=== PATIENT | male | born 1965 | race Caucasian/White ===

== ENCOUNTER 2024-03-18 08:45 | Emergency (ER) | payer MEDICAID, OTHER ==
[~2024-03-18] VITALS: Ht 167.6 cm; Wt 108.4 kg
[2024-03-18] MEDS: ALBUTEROL SULF 2.5 MG/0.5ML(0.5%) NEB SOLN NEB ONE (10:07)
[2024-03-18] MEDS: IPRATROPIUM BROM 0.5 MG/2.5ML INH SOL NEB ONE (10:07)
[2024-03-18 10:22] VITALS: BP 120/78; PULSE 111; RESP 16; TEMP 99.2; O2SAT 94
[2024-03-18] MEDS: methylPREDNISolone SOD SUCC 125 MG/2 ML VL IM ONE (10:24)
[2024-03-18] MEDS: cefTRIAXone SOD 1,000 MG VL IM ONE (10:24)
[2024-03-18] MEDS ORDERED: PROM1SOL4 PO (11:40)
[2024-03-18] MEDS ORDERED: LEVO500T91 PO (11:40)
[2024-03-18] MEDS ORDERED: PRED20TA2 PO (11:40)
[2024-03-18 11:51] VITALS: PULSE 98; RESP 16; O2SAT 100
== END 2024-03-18 12:32 | disposition home or self-care (01) ==
LOC: ER 08:45
DX: J20.9 Acute bronchitis, unspecified (principal); J44.0 Chronic obstructive pulmonary disease with (acute) lower respiratory infection; E66.01 Morbid (severe) obesity due to excess calories; Z68.38 Body mass index [BMI] 38.0-38.9, adult
CPT/HCPCS: 71045; 94640; 96372; 99284; J0696; J2919; J7644

== ENCOUNTER 2024-08-18 09:40 | Emergency (ER) | payer MEDICAID ==
[~2024-08-18] VITALS: Ht 167.6 cm; Wt 106.7 kg
[~2024-08-18 09:40] MED LIST: LEVO500T91 PO; PRED20TA2 PO; PROM1SOL4 PO
[2024-08-18 10:38] VITALS: BP 104/61; PULSE 105; RESP 15; TEMP 98.4; O2SAT 94
--- NOTE | 2024-08-18 10:44 | ED.PDOC ---
Musculoskeletal HPI Comments A 59Y M WITH PMHX DM, COPD, CTS, AND ARTHRITIS PRESENTS TO ED FOR CHIEF COMPLAINT RT 4TH FINGER PAIN SINCE LAST NIGHT. PT STATES HE WAS PUSHING HIS PANTS DOWNWARDS WHEN HE HURT HIS HAND AND THE 4TH FINGER BECAME RED AND SWOLLEN. PT DENIES CHEST PAIN AND SOB. NO OTHER SYMPTOMS REPORTED. PATIENT IS ALERT, ORIENTED X 4, AND HAS STEADY GAIT. Chief Complaint: Upper Extremity Time Seen by MD: 10:36 Reviewed Notes: Nurses Notes, Medications, Allergies Allergies: Coded Allergies: NO KNOWN ALLERGIES (Unverified , 03/18/24) Home Meds Active Scripts Acetaminophen (Tylenol 8 Hour Arthritis) 650 Mg Tab, 650 MG PO TID, #30 TAB Prov:HILARY MENDES 08/18/24 Promethazine-Dm (Promethazine Dm 6.25-15 mg/5Ml) 1 Ochoa Ochoa, 10 OCHOA PO TID, #180 ML Prov:HILARY MENDES 03/18/24 Prednisone (Prednisone) 20 Mg Tab, 60 MG PO DAILY for 5 Days, #15 TAB Prov:HILARY MENDES 03/18/24 Levofloxacin Hemihydrate (LEVAQUIN 500 MG) 500 Mg Tab, 1 TAB PO DAILY, #10 TAB Prov:HILARY MENDES 03/18/24 Information Source: Patient Mode of Arrival: Ambulatory Location: Right Extremity Location: Finger 4 Timing: Days Severity: Mild Able to Move Extremity: Yes Bear Weight: Fully Pain: Mild, Moderate Mechanism: Hyperextension, Other Circumstances: Other Onset of Symptoms: After Trauma Symptoms: Swelling, Pain, Erythema DVT Risk Factors: NONE Last Tetanus: UTD History of: Arthritis Associated signs and symptoms: Other (FINGER PAIN) Past Medical History PAST MEDICAL HISTORY: Arthritis, COPD, DM Past Medical History (Other): CTS Surgical History: Denies all surgeries Family History Family History: Reviewed,noncontributory to illness Social History Smoker: Non-Smoker Alcohol: Denies ETOH Use Drugs: Denies Drug Use Lives In: Home Constitutional: denies: chills, diaphoresis, fatigue, fever, malaise, sweats, weakness, others EENTM: denies: blurred vision, double vision, ear bleeding, ear discharge, ear drainage, ear pain, ear ringing, eye pain, eye redness, hearing loss, mouth pa in, mouth swelling, nasal discharge, nose bleeding, nose congestion, nose pain, photophobia, tearing, throat pain, throat swelling, voice changes, others Respiratory: denies: cough, hemoptysis, orthopnea, SOB at rest, shortness of breath, SOB with excertion, stridor, wheezing, others Cardiovascular: denies: chest pain, dizzy spells, diaphoresis, Dyspnea on exertion, edema, irregular heart beat, left arm pain, lightheadedness, palpitations, PND, syncope, others Gastrointestinal: denies: abdomen distended, abdominal pain, blood streaked bowels, constipated, diarrhea, dysphagia, difficulty swallowing, hematemesis, melena, nausea, poor appetite, poor fluid intake, rectal bleeding, rectal pain, vomiting, others Genitourinary: denies: burning, dysuria, flank pain, frequency, hematuria, incontinence, penile discharge, penile sore, pain, testicle pain, testicle swelling, urgency, others Neurological: denies: dizziness, fainting, headache, left sided numbness, left sided weakness, numbness, paresthesia, pre-existing deficit, right sided numbness, right sided weakness, seizure, speech problems, tingling, tremors, weakness, others Musculoskeletal: reports: joint pain, joint swelling, others (RT 4TH FINGER REDNESS/SWELLING/PAIN); denies: back pain, gout, muscle pain, muscle stiffness, neck pain Integumetry: denies: bruises, change in color, change in hair/nails, dryness, laceration, lesions, lumps, rash, wounds, others Allergic/Immunocompromised: denies: Difficulty Healing, Frequent Infections, Hives, Itching, others Hematologic/Lymphatic: denies: anemia, blood clots, easy bleeding, easy bruising, swollen glands, others Endocrine: denies: excessive hunger, excessive sweating, excessive thirst, excessive urination, flushing, intolerance to cold, intolerance to heat, unexplained weight gain, unexplained weight loss, others Psychiatric: denies: anxiety, bipolar disorder, depression, hopeless, panic disorder, schizophrenia, sleepless, suicidal, others All Other Systems: Reviewed and Negative Physical Exam General Appearance: No Apparent Distress, Normal HEENT: Normal ENT Inspection, PERRL/EOMI, Pharynx Normal, TMs Normal Neck: Full Range of Motion, Non-Tender, Normal, Normal Inspection Respiratory: Chest Non-Tender, Lungs Clear, No Accessory Muscle Use, No Respiratory Distress, Normal Breath Sounds Cardiovascular: No Edema, No JVD, No Murmur, No Gallop, Normal Peripheral Pulses, Regular Rate/Rhythm Breast Exam: Deferred Gastrointestinal: No Organomegaly, Non Tender, No Pulsatile Mass, Normal Bowel Sounds, Soft Genitalia: Deferred Pelvic: Deferred Rectal: Deferred Extremities: No calf tenderness, Normal capillary refill, Normal range of motion, No pedal edema, Tender (AND MILD SWELLING ON RIGHT 4TH FINGER, NO BONY TENDERNESS AND DEFORMITY. ) Musculoskeletal : Apperance: Normal Neurologic: Alert, lift team technician II-XII nml as Tested, No Motor Deficits, Normal Affect, Normal Mood, No Sensory Deficits Cerebellar Function: Normal Reflexes: Normal Skin: Dry, Normal Color, Warm Peripheral Pulses: 2+ carotid (R), 2+ carotid (L) Lymphatic: No Adenopathy Was a procedure done? Was a procedure done?: No Differential Diagnosis EXT Differential Diagnosis: Fracture, Sprain, Dislocation, Contusion, Strain, Arthritis, Bursitis X-Ray, Labs, Meds, VS Vital Signs Date Time Temp Pulse Resp B/P (MAP) Pulse Ox O2 Delivery O2 Flow Rate FiO2 08/18/24 10:38 105 15 94 Room Air 08/18/24 10:38 98.4 105 15 104/61 (75) 94 98.4 08/18/24 09:48 98.4 105 15 104/61 (75) [address] [place] [address] Ph: [phone] DIAGNOSTIC IMAGING Diagnostic Imaging Report : [id number] Signed PATIENT: APRIL CHAPARRO DACCT: [id number] UNIT: [id number] : 1965 LOC: ER ROOM / BED: / AGE / SEX: 59 / M ADM STATUS: REG ER SERVICE 1001 ORDERING PHYSICIAN: HILARY MENDES PROCEDURE(s): RHAN - R HAND 3 VIEW XRAY REASON: INJURY ORDER NUMBER(s): [id number], ACCESSION NUMBER(s): [id number] CLINICAL INDICATION: INJURY TECHNIQUE: XY R HAND 3 VIEW XRAY Comparison: None FINDINGS/IMPRESSION: There is no evidence of acute fracture or dislocation. The visualized joint space is well maintained. The alignment is anatomical. There is no radiopaque foreign body. ATED BY: NATE BERNSTEIN MD DICTATED DATE/TIME: 08/18/24 105 SIGNED BY: NATE BERNSTEIN MD SIGNED DATE/TIME: 08/18/24 105 CC: X-Ray, Labs, Meds, VS Comment COURSE: EXTERNAL MEDICAL RECORDS REVIEWED: [NONE] INDEPENDENT HISTORIANS: [NONE] SOCIAL DETERMINANTS OF HEALTH: [NONE] LABS ORDERED: NONE REVIEWED AND INTERPRETED RESULTS: NONE IMAGING ORDERED: RT HAND X-RAY NORMAL X RAY RESULT: INTERPRETED BY ME. NO ACUTE FINDINGS. NO FRACTURES OR DISLOCATION. TREATMENTS ORDERED: NONE PROCEDURES PERFORMED: NONE CRITICAL CARE TIME: NONE I HAVE DISCUSSED THE PATIENT WITH THE ATTENDING PHYSICIAN DR. TWILA MEZA AND SHE AGREES WITH THE PATIENT'S PLAN OF CARE AND DISPOSITION. GIVEN THE HISTORY AND PRESENT ILLNESS OF THE PATIENT, AFTER REVIEWING LABS, IMAGING, AND COURSE OF TREATMENT ADMINISTERED DURING THEIR ED VISIT, THERE IS LOW SUSPICION FOR RED FLAG FINDINGS. BASED ON HISTORY OF PRESENT ILLNESS, AND PHYSICAL EXAM, PATIENT WILL BE DISCHARGED HOME. DISCUSSED PLAN FOR DISCHARGE HOME WITH RX. MEDICATION WARNINGS GIVEN. SHARED DECISION MAKING: DISCUSSED WITH PATIENT THAT THEIR WORKUP WAS NORMAL. PATIENT INSTRUCTED TO FOLLOW UP WITH PRIMARY CARE PROVIDER IN 1-2 DAYS FOR RE- EVALUATION OF SYMPTOMS. PATIENT VERBALIZES UNDERSTANDING TO RETURN TO ED FOR NEW OR WORSENING SYMPTOMS OR IF FOLLOW UP WITH PCP CANNOT BE OBTAINED. PATIENT FEELS COMFORTABLE GOING HOME AT THIS TIME. ALL QUESTIONS ADDRESSED AT TIME OF DISCHARGE. Time of 1ST Reevaluation: 11:10 Reevaluation 1ST: Improved Patient Education/Counseling: Diagnosis, Treatment, Need For Follow Up Family Education/Counseling: Diagnosis, Treatment, Need For Follow Up, No Family Present Medical Screening: No EMC Exist At This Time Departure 1 Departure Time of Disposition: 11:10 Impression: Primary Impression: Sprain of ring finger Qualified Codes: S63.634A - Sprain of interphalangeal joint of right ring finger, initial encounter Disposition: HOME / SELF CARE / HOMELESS Condition: Stable Additional Instructions: INSTRUCTIONS: FOLLOW-UP WITH PCP IN 1 TO 2 DAYS. TAKE MEDICATIONS PRESCRIBED. RETURN TO ED FOR ANY NEW OR WORSENING SYMPTOMS. e-Prescriptions Acetaminophen (Tylenol 8 Hour Arthritis) 650 Mg Tab 650 MG PO TID, #30 TAB Prov: HILARY MENDES 08/18/24 Discharged With: Self Critical Care Note Critical Care Time?: No Stability Stability form required: No Heart Score Heart Score: Heart Score Response (Comments) Value History N/A 0 EKG N/A 0 Age N/A 0 Risk Factors N/A 0 Troponin N/A 0 Total 0 I personally scribed for HILARY MENDES ([email or web address]) on 08/18/24 at 10:44. Electronically submitted by Danica Kelly ([employer]). I personally scribed for HILARY MENDES ([email or web address]) on 08/18/24 at 10:56. El ectronically submitted by Danica Kelly ([employer]). I personally scribed for HILARY MENDES ([email or web address]) on 08/18/24 at 11:00. Electronically submitted by Danica Kelly ([employer]). HILARY MENDES Aug 18, 2024 10:44
--- NOTE | 2024-08-18 10:53 | DVH ---
CLINICAL INDICATION: INJURY TECHNIQUE: XY R HAND 3 VIEW XRAY Comparison: None FINDINGS/IMPRESSION: There is no evidence of acute fracture or dislocation. The visualized joint space is well maintained. The alignment is anatomical. There is no radiopaque foreign body.
[2024-08-18] MEDS ORDERED: ACET-1080 PO (11:01)
== END 2024-08-18 11:05 | disposition home or self-care (01) ==
LOC: ER 09:40
DX: S63.694A Other sprain of right ring finger, initial encounter (principal); J44.9 Chronic obstructive pulmonary disease, unspecified; E11.9 Type 2 diabetes mellitus without complications; Z79.899 Other long term (current) drug therapy; X58.XXXA Exposure to other specified factors, initial encounter; Y93.89 Activity, other specified; Y92.89 Other specified places as the place of occurrence of the external cause; Y99.8 Other external cause status
CPT/HCPCS: 29130; 73130

== ENCOUNTER 2024-08-20 16:00 | Emergency (ER) | payer MEDICAID ==
[~2024-08-20] VITALS: Ht 167.6 cm; Wt 106.7 kg
[~2024-08-20 16:00] MED LIST changes: +ACET-1080 PO
[2024-08-20 17:14] VITALS: BP 99/70; PULSE 100; RESP 18; TEMP 97.1; O2SAT 96
[2024-08-20] MEDS ORDERED: IBUP-1454 PO (17:28)
[2024-08-20] MEDS: KETOROLAC TROMETH 30 MG/ML 1ML VIAL IM ONE (17:29)
--- NOTE | 2024-08-20 17:29 | ED.PDOC ---
Musculoskeletal HPI Comments 59-year-old male with past medical history pertinent for COPD, DM, presents to ED for right shoulder pain x2 weeks, worsening today. Patient denies any recent trauma or injury. He states that he does have a history of arthritis to his right shoulder and states that the pain is worse today. He describes it as a sharp sensation and rates it as 8/10 in severity. The pain is localized to his right shoulder and does not radiate. He denies any numbness, tingling, fever, nausea, vomiting, neck pain. Chief Complaint: Upper Extremity Time Seen by MD: 16:58 Primary Care Provider: SAMRA Reviewed Notes: Nurses Notes, Medications, Allergies Allergies: Coded Allergies: NO KNOWN ALLERGIES (Unverified , 03/18/24) Home Meds Active Scripts Acetaminophen (Tylenol 8 Hour Arthritis) 650 Mg Tab, 650 MG PO TID, #30 TAB Prov:HILARY MENDES 08/18/24 Promethazine-Dm (Promethazine Dm 6.25-15 mg/5Ml) 1 Ochoa Ochoa, 10 OCHOA PO TID, #180 ML Prov:HILARY MENDES 03/18/24 Prednisone (Prednisone) 20 Mg Tab, 60 MG PO DAILY for 5 Days, #15 TAB Prov:HILARY MENDES 03/18/24 Levofloxacin Hemihydrate (LEVAQUIN 500 MG) 500 Mg Tab, 1 TAB PO DAILY, #10 TAB Prov:HILARY MENDES 03/18/24 Mode of Arrival: Ambulatory Past Medical History PAST MEDICAL HISTORY: Arthritis, COPD, DM Surgical History: Denies all surgeries Family History Family History: Reviewed,noncontributory to illness Social History Smoker: Non-Smoker Alcohol: Denies ETOH Use Drugs: Denies Drug Use Lives In: Home Constitutional: denies: chills, diaphoresis, fatigue, fever, malaise, sweats, weakness, others EENTM: denies: blurred vision, double vision, ear bleeding, ear discharge, ear drainage, ear pain, ear ringing, eye pain, eye redness, hearing loss, mouth pain, mouth swelling, nasal discharge, nose bleeding, nose congestion, nose pain, photophobia, tearing, throat pain, throat swelling, voice changes, others Respiratory: denies: cough, hemoptysis, orthopnea, SOB at rest, shortness of breath, SOB with excertion, stridor, wheezing, others Cardiovascular: denies: chest pain, dizzy spells, diaphoresis, Dyspnea on exertion, edema, irregular heart beat, left arm pain, lightheadedness, palpitations, PND, syncope, others Gastrointestinal: denies: abdomen distended, abdominal pain, blood streaked bowels, constipated, diarrhea, dysphagia, difficulty swallowing, hematemesis, melena, nausea, poor appetite, poor fluid intake, rectal bleeding, rectal pain, vomiting, others Genitourinary: denies: burning, dysuria, flank pain, frequency, hematuria, incontinence, penile discharge, penile sore, pain, testicle pain, testicle swelling, urgency, others Neurological: denies: dizziness, fainting, headache, left sided numbness, left sided weakness, numbness, paresthesia, pre-existing deficit, right sided numbness, right sided weakness, seizure, speech problems, tingling, tremors, weakness, others Musculoskeletal: reports: joint pain; denies: back pain, gout, joint swelling, muscle pain, muscle stiffness, neck pain, others Integumetry: denies: bruises, change in color, change in hair/nails, dryness, laceration, lesions, lumps, rash, wounds, others Allergic/Immunocompromised: denies: Difficulty Healing, Frequent Infections, Hives, Itching, others Hematologic/Lymphatic: denies: anemia, blood clots, easy bleeding, easy bruising, swollen glands, others Endocrine: denies: excessive hunger, excessive sweating, excessive thirst, excessive urination, flushing, intolerance to cold, intolerance to heat, u nexplained weight gain, unexplained weight loss, others Psychiatric: denies: anxiety, bipolar disorder, depression, hopeless, panic disorder, schizophrenia, sleepless, suicidal, others All Other Systems: Reviewed and Negative Physical Exam General Appearance: No Apparent Distress, Normal HEENT: Normal ENT Inspection, Pharynx Normal, TMs Normal Neck: Full Range of Motion, Non-Tender, Normal, Normal Inspection Respiratory: Chest Non-Tender, Lungs Clear, No Accessory Muscle Use, No Respiratory Distress, Normal Breath Sounds Cardiovascular: No Edema, No JVD, No Murmur, No Gallop, Normal Peripheral P ulses, Regular Rate/Rhythm Breast Exam: Deferred Gastrointestinal: No Organomegaly, Non Tender, No Pulsatile Mass, Normal Bowel Sounds, Soft Genitalia: Deferred Pelvic: Deferred Rectal: Deferred Extremities: No calf tenderness, Normal capillary refill, Normal inspection, Normal range of motion, Non-tender, No pedal edema Musculoskeletal : Location: Right Extremity Location: Shoulder (No tenderness to palpation to the right shoulder. No obvious deformity or swelling noted. Normal passive range of motion. Normal sensation to the right upper extremity. Normal range of motion of the fingers. 3+ radial pulse.) Apperance: Normal Neurologic: Alert, administrative services assistant II-XII nml as Tested, No Motor Deficits, Normal Affect, Normal Mood, No Sensory Deficits Cerebellar Function: Normal Reflexes: Normal Skin: Dry, Normal Color, Warm Lymphatic: No Adenopathy Was a procedure done? Was a procedure done?: No Differential Diagnosis EXT Differential Diagnosis: Fracture, Sprain, Dislocation, Strain, Arthritis X-Ray, Labs, Meds, VS Vital Signs Date Time Temp Pulse Resp B/P (MAP) Pulse Ox O2 Delivery O2 Flow Rate FiO2 08/20/24 17:14 100 18 96 Room Air 08/20/24 17:14 97.1 100 18 99/70 (80) 96 97.1 08/20/24 16:33 97.1 100 18 99/70 (80) 96 X-Ray, Labs, Meds, VS Comment MDM: Patient with history as above presented with right shoulder pain. History obtained from patient. Patient was nontoxic, stable, afebrile, ambulatory, no acute distress. Exam as above. Reviewed external records. All findings were discussed with the patient. Differential diagnosis considered. Overall presentation is consistent with musculoskeletal shoulder pain. Low suspicion for fracture, dislocation, neurovascular injury, septic joint. Patient was treated with Toradol with improvement in symptoms. Patient was reevaluated and vital signs were reviewed. Consideration was given for admission, but the patient was stable for outpatient management. Prescribed ibuprofen for outpatient treatment. Disposition: Discussed the need to follow up diagnostics, including incidental findings. Discharged the patient with instructions to obtain outpatient follow up in 1-2 days of today's symptoms and findings, with strict return precautions if patient develops new or worsening symptoms. This medical document was created using the [employer] system. Although this document has been carefully reviewed, there may still be some phonetic and typographical errors, which are due to imperfections of the software program, and do not reflect any compromise in the patient's medical care. Time of 1ST Reevaluation: 17:28 Reevaluation 1ST: Improved Patient Education/Counseling: Diagnosis, Treatment, Prognosis, Need For Follow Up Family Education/Counseling: No Family Present Departure 1 Departure Time of Disposition: 17:28 Impression: Primary Impression: Right shoulder pain Qualified Codes: M25.511 - Pain in right shoulder Disposition: 01 HOME / SELF CARE / HOMELESS Condition: Fair e-Prescriptions Ibuprofen (Ibuprofen) 600 Mg Tab 1 TAB PO TID, #30 TAB Prov: ZAINAB CARNES 08/20/24 Critical Care Note Critical Care Time?: No Stability Stability form required: No Heart Score Heart Score: Heart Score Response (Comments) Value History N/A 0 EKG N/A 0 Age N/A 0 Risk Factors N/A 0 Troponin N/A 0 Total 0 ZAINAB CARNES Aug 20, 2024 17:29
== END 2024-08-20 17:37 | disposition home or self-care (01) ==
LOC: ER 16:00
DX: M25.511 Pain in right shoulder (principal); J44.9 Chronic obstructive pulmonary disease, unspecified; E11.9 Type 2 diabetes mellitus without complications; Z79.899 Other long term (current) drug therapy
CPT/HCPCS: 96372; 99283; J1885

== ENCOUNTER 2024-08-22 15:25 | Emergency (ER) | payer MEDICAID ==
[~2024-08-22] VITALS: Ht 167.6 cm; Wt 107.3 kg
[~2024-08-22 15:25] MED LIST changes: +IBUP-1454 PO
--- NOTE | 2024-08-22 16:11 | DVH ---
CLINICAL INDICATION: [place] pain TECHNIQUE: 3 radiographic views of the right shoulder were obtained. Comparison: Chest radiograph 03/18/2024 FINDINGS/IMPRESSION: There is questionable old fracture deformity of the right mid to distal clavicle. Otherwise, no is n o evidence of acute fracture or dislocation. Calcific tendinitis is noted adjacent to the humeral head. The visualized joint space is well maintained. Moderate degenerative changes of the right AC joint. The alignment is anatomical. Redemonstration of opacification of right lateral hemithorax which may represent pleural lipomatosis, or pleural thickening with pleural effusion not excluded.
--- NOTE | 2024-08-22 16:17 | ED.PDOC ---
Musculoskeletal HPI Comments 59-year-old male with past medical history pertinent for DM, arthritis, COPD, presents to ED for right shoulder pain x1 hour. Patient reports that he has been having right shoulder pain the last few days, however in the last hour it got worse. He was seen here two days ago for similar symptoms. Patient states that his symptoms are the same and have not changed. He states that the pain is rated as 8/10 in severity. He denies any numbness or tingling. No recent injuries or trauma. Patient also denies any fever, chills, nausea, vomiting. No alleviating or aggravating factors. Patient took ibuprofen prior to arrival without relief of symptoms. Chief Complaint: Upper Extremity Time Seen by MD: 15:33 Primary Care Provider: SAMRA Reviewed Notes: Nurses Notes, Medications, Allergies Allergies: Coded Allergies: NO KNOWN ALLERGIES (Unverified , 03/18/24) Home Meds Active Scripts Ibuprofen (Ibuprofen) 600 Mg Tab, 1 TAB PO TID, #30 TAB Prov:ZAINAB CARNES 08/20/24 Acetaminophen (Tylenol 8 Hour Arthritis) 650 Mg Tab, 650 MG PO TID, #30 TAB Prov:HILARY MENDES 08/18/24 Promethazine-Dm (Promethazine Dm 6.25-15 mg/5Ml) 1 Ochoa Ochoa, 10 OCHOA PO TID, #180 ML Prov:HILARY MENDES 03/18/24 Prednisone (Prednisone) 20 Mg Tab, 60 MG PO DAILY for 5 Days, #15 TAB Prov:HLIARY MENDES 03/18/24 Levofloxacin Hemihydrate (LEVAQUIN 500 MG) 500 Mg Tab, 1 TAB PO DAILY, #10 TAB Prov:HILARY MENDES 03/18/24 Past Medical History PAST MEDICAL HISTORY: Arthritis, COPD, DM Surgical History: Denies all surgeries Family History Family History: Reviewed,noncontributory to illness Social History Smoker: Non-Smoker Alcohol: Denies ETOH Use Drugs: Denies Drug Use Lives In: Home Constitutional: denies: chills, diaphoresis, fatigue, fever, malaise, sweats, weakness, others EENTM: denies: blurred vision, double vision, ear bleeding, ear discharge, ear drainage, ear pain, ear ringing, eye pain, eye redness, hearing loss, mouth pain, mouth swelling, nasal discharge, nose bleeding, nose congestion, nose pain, photophobia, tearing, throat pain, throat swelling, voice changes, others Respiratory: denies: cough, hemoptysis, orthopnea, SOB at rest, shortness of breath, SOB with excertion, stridor, wheezing, others Cardiovascular: denies: chest pain, dizzy spells, diaphoresis, Dyspnea on exertion, edema, irregular heart beat, left arm pain, lightheadedness, palpitations, PND, syncope, others Gastrointestinal: denies: abdomen distended, abdominal pain, blood streaked bowels, constipated, diarrhea, dysphagia, difficulty swallowing, hematemesis, melena, nausea, poor appetite, poor fluid intake, rectal bleeding, rectal pain, vomiting, others Genitourinary: denies: burning, dysuria, flank pain, frequency, hematuria, incontinence, penile discharge, penile sore, pain, testicle pain, testicle swelling, urgency, others Neurological: denies: dizziness, fainting, headache, left sided numbness, left sided weakness, numbness, paresthesia, pre-existing deficit, right sided numbness, right sided weakness, seizure, speech problems, tingling, tremors, weakness, others Musculoskeletal: reports: joint pain; denies: back pain, gout, joint swelling, muscle pain, muscle stiffness, neck pain, others Integumetry: denies: bruises, change in color, change in hair/nails, dryness, laceration, lesions, lumps, rash, wounds, others Allergic/Immunocompromised: denies: Difficulty Healing, Frequent Infections, Hives, Itching, others Hematologic/Lymphatic: denies: anemia, blood clots, easy bleeding, easy bruising, swollen glands, others Endocrine: denies: excessive hunger, excessive sweating, excessive thirst, excessive urination, flushing, intolerance to cold, intolerance to heat, unexplained weight gain, unexplained weight loss, others Psychiatric: denies: anxiety, bipolar disorder, depression, hopeless, panic disorder, schizophrenia, sleepless, suicidal, others All Other Systems: Reviewed and Negative Physical Exam General Appearance: No Apparent Distress, Normal HEENT: Normal ENT Inspection, Pharynx Normal, TMs Normal Neck: Full Range of Motion, Non-Tender, Normal, Normal Inspection Respiratory: Chest Non-Tender, Lungs Clear, No Accessory Muscle Use, No Respiratory Distress, Normal Breath Sounds Cardiovascular: No Edema, No JVD, No Murmur, No Gallop, Normal Peripheral Pulses, Regular Rate/Rhythm Breast Exam: Deferred Gastrointestinal: No Organomegaly, Non Tender, No Pulsatile Mass, Normal Bowel Sounds, Soft Genitalia: Deferred Pelvic: Deferred Rectal: Deferred Extremities: No calf tenderness, Normal capillary refill, Normal inspection, Normal range of motion, Non-tender, No pedal edema Musculoskeletal : Location: Right Extremity Location: Shoulder (No tenderness to palpation to the right shoulder. Full passive range of motion of the right shoulder. No obvious deformity or swelling noted.) Apperance: Normal Neurologic: Alert, hand sole sewer II-XII nml as Tested, No Motor Deficits, Normal Affect, Normal Mood, No Sensory Deficits Cerebellar Function: Normal Reflexes: Normal Skin: Dry, Normal Color, Warm Lymphatic: No Adenopathy Was a procedure done? Was a procedure done?: No Differential Diagnosis EXT Differential Diagnosis: Fracture, Sprain, Dislocation, Contusion, Strain, Neurovascular injury, Arthritis X-Ray, Labs, Meds, VS Comment Right Shoulder XR FINDINGS/IMPRESSION: There is questionable old fracture deformity of the right mid to distal clavicle. Otherwise, no is no evidence of acute fracture or dislocation. Calcific tendinitis is noted adjacent to the humeral head. The visualized joint space is well maintained. Moderate degenerative changes of the right AC joint. The alignment is anatomical. Redemonstration of opacification of right lateral hemithorax which may represent pleural lipomatosis, or pleural thickening with pleural effusion not excluded. MDM: Patient with history as above presented with right shoulder pain. History obtained from patient. Patient was nontoxic, stable, afebrile, ambulatory, no acute distress. Exam as above. Independently reviewed imaging. Right shoulder x-ray showed calcific tendinitis. Reviewed external records. All findings were discussed with the patient. Differential diagnosis considered. Overall presentation is consistent with dennis cific tendinitis. Low suspicion for acute fracture, dislocation, septic joint. Ordered [place] for the patient in the ED. Patient was reevaluated and vital signs were reviewed. Consideration was given for admission, but the patient was stable for outpatient management. Disposition: Discussed the need to follow up diagnostics, including incidental findings. Discharged the patient with instructions to obtain outpatient follow up in 1-2 days of today's symptoms and findings, with strict return precautions if patient develops new or worsening symptoms. This medical document was created using the [employer] dictation system. Although this document has been carefully reviewed, there may still be some phonetic and typographical errors, which are due to imperfections of the software program, and do not reflect any compromise in the patient's medical care. Time of 1ST Reevaluation: 16:15 Reevaluation 1ST: Improved Patient Education/Counseling: Diagnosis, Treatment, Prognosis, Need For Follow Up Family Education/Counseling: No Family Present Departure 1 Departure Time of Disposition: 16:17 Impression: Primary Impression: Calcific tendinitis Disposition: 01 HOME / SELF CARE / HOMELESS Condition: Fair Critical Care Note Critical Care Time?: No Stability Stability form required: No Heart Score Heart Score: Heart Score Response (Comments) Value History N/A 0 EKG N/A 0 Age N/A 0 Risk Factors N/A 0 Troponin N/A 0 Total 0 ZAINAB CARNES [facility] Aug 22, 2024 16:17
[2024-08-22] MEDS: HYDROcodone-ACET 5/325MG TAB PO ONE (17:14)
[2024-08-22 17:24] VITALS: RESP 17; O2SAT 97
[2024-08-22 17:25] VITALS: BP 113/69; PULSE 103; RESP 17; TEMP 98.3; O2SAT 98
== END 2024-08-22 17:27 | disposition home or self-care (01) ==
LOC: ER 15:25
DX: M75.31 Calcific tendinitis of right shoulder (principal); J44.9 Chronic obstructive pulmonary disease, unspecified; E11.9 Type 2 diabetes mellitus without complications; M19.90 Unspecified osteoarthritis, unspecified site; Z79.1 Long term (current) use of non-steroidal anti-inflammatories (NSAID); Z79.52 Long term (current) use of systemic steroids
CPT/HCPCS: 73030

== ENCOUNTER 2024-08-26 14:51 | Emergency (ER) | payer MEDICAID ==
[~2024-08-26] VITALS: Ht 167.6 cm; Wt 105.5 kg
[2024-08-26 16:35] VITALS: BP 152/72; PULSE 127; RESP 18; TEMP 98.3; O2SAT 98
--- NOTE | 2024-08-26 16:49 | ED.PDOC ---
Musculoskeletal HPI Comments A 59 YEAR OLD MALE PRESENTS TO THE ED WITH COMPLAINT OF LEFT KNEE PAIN. PATIENT STATES HE HAS BEEN EXPERIENCING LEFT KNEE PAIN AND SWELLING THAT STARTED TODAY AFTER KNEELING DOWN WHILE HE WAS CLEANING HIS DOG'S KENNEL.. PATIENT REPORTS HIS PAIN IS WORSE WITH MOVEMENT. PATIENT NOTES HE IS ALSO EXPERIENCING NAUSEA AT THIS TIME AND NOTES HE DID NOT TAKE HIS DIABETES MEDICATION TODAY. PATIENT DENIES FEVER, CHILLS, SHORTNESS OF BREATH, CHEST PAIN, ABDOMINAL PAIN, VOMITING, HEADACHE, OR OTHER COMPLAINTS. NO OTHER SYMPTOMS OR MODIFYING FACTORS AT THIS TIME. PATIENT IS ALERT, ORIENTED X 4, AND HAS STEADY GAIT. Chief Complaint: Lower Extremity Time Seen by MD: 15:32 Primary Care Provider: BALTA Reviewed Notes: Nurses Notes, Medications, Allergies Allergies: Coded Allergies: NO KNOWN ALLERGIES (Unverified , 03/18/24) Home Meds Active Scripts Naproxen (Naproxen) 500 Mg Tab, 500 MG PO BID, #30 TAB Prov:HILARY MENDES 08/26/24 Ibuprofen (Ibuprofen) 600 Mg Tab, 1 TAB PO TID, #30 TAB Prov:ZAINAB CARNES [facility] 08/20/24 Acetaminophen (Tylenol 8 Hour Arthritis) 650 Mg Tab, 650 MG PO TID, #30 TAB Prov:HILARY MENDES 08/18/24 Promethazine-Dm (Promethazine Dm 6.25-15 mg/5Ml) 1 Ochoa Ochoa, 10 OCHOA PO TID, #180 ML Prov:HILAYR MENDES 03/18/24 Prednisone (Prednisone) 20 Mg Tab, 60 MG PO DAILY for 5 Days, #15 TAB Prov:HILARY MENDES 03/18/24 Levofloxacin Hemihydrate (LEVAQUIN 500 MG) 500 Mg Tab, 1 TAB PO DAILY, #10 TAB Prov:HILARY MENDES 03/18/24 Information Source: Patient Mode of Arrival: Ambulatory Location: Left Extremity Location: Knee Timing: Hours Prehospital treatment: None Severity: Moderate Able to Move Extremity: Yes Bear Weight: Fully Pain: Moderate Mechanism: No Trauma, Spontaneous Circumstances: Spontaneous Onset of Symptoms: Spontaneous Symptoms: Swelling, Pain DVT Risk Factors: NONE Last Tetanus: Unknown Associated signs and symptoms: Knee pain Past Medical History PAST MEDICAL HISTORY: Arthritis, COPD, DM Surgical History: Denies all surgeries Family History Family History: Reviewed,noncontributory to illness Social History Smoker: Non-Smoker Alcohol: Denies ETOH Use Drugs: Denies Drug Use Lives In: Home Constitutional: denies: chills, diaphoresis, fatigue, fever, malaise, sweats, weakness, others EENTM: denies: blurred vision, double vision, ear bleeding, ear discharge, ear drainage, ear pain, ear ringing, eye pain, eye redness, hearing loss, mouth pain, mouth swelling, nasal discharge, nose bleeding, nose congestion, nose pain, photophobia, tearing, throat pain, throat swelling, voice changes, others Respiratory: denies: cough, hemoptysis, orthopnea, SOB at rest, shortness of breath, SOB with excertion, stridor, wheezing, others Cardiovascular: denies: chest pain, dizzy spells, diaphoresis, Dyspnea on exertion, edema, irregular heart beat, left arm pain, lightheadedness, palpitations, PND, syncope, others Gastrointestinal: denies: abdomen distended, abdominal pain, blood streaked bowels, constipated, diarrhea, dysphagia, difficulty swallowing, hematemesis, melena, nausea, poor appetite, poor fluid intake, rectal bleeding, rectal pain, vomiting, others Genitourinary: denies: burning, dysuria, flank pain, frequency, hematuria, incontinence, penile discharge, penile sore, pain, testicle pain, testicle swelling, urgency, others Neurological: denies: dizziness, fainting, headache, left sided numbness, left sided weakness, numbness, paresthesia, pre-existing deficit, right sided numbness, right sided weakness, seizure, speech problems, tingling, tremors, weakness, others Musculoskeletal: reports: joint pain, joint swelling, others (LEFT KNEE PAIN); denies: back pain, gout, muscle pain, muscle stiffness, neck pain Integumetry: denies: bruises, change in color, change in hair/nails, dryness, laceration, lesions, lumps, rash, wounds, others Allergic/Immunocompromised: denies: Difficulty Healing, Frequent Infections, Hives, Itching, others Hematologic/Lymphatic: denies: anemia, blood clots, easy bleeding, easy bruising, swollen glands, others Endocrine: denies: excessive hunger, excessive sweating, excessive thirst, excessive urination, flushing, intolerance to cold, intolerance to heat, unexplained weight gain, unexplained weight loss, others Psychiatric: denies: anxiety, bipolar disorder, depression, hopeless, panic disorder, schizophrenia, sleepless, suicidal, others All Other Systems: Reviewed and Negative Physical Exam General Appearance: No Apparent Distress, Normal HEENT: Normal ENT Inspection, PERRL/EOMI, Pharynx Normal, TMs Normal Neck: Full Range of Motion, Non-Tender, Normal, Normal Inspection Respiratory: Chest Non-Tender, Lungs Clear, No Accessory Muscle Use, No Respiratory Distress, Normal Breath Sounds Cardiovascular: No Edema, No JVD, No Murmur, No Gallop, Normal Peripheral Pulses, Regular Rate/Rhythm Breast Exam: Deferred Gastrointestinal: No Organomegaly, Non Tender, No Pulsatile Mass, Normal Bowel Sounds, Soft Genitalia: Deferred Pelvic: Deferred Rectal: Deferred Extremities: No calf tenderness, Normal capillary refill, Normal range of motion, No pedal edema, Tender (AND MILD SWELLING ON LEFT KNEE, [place] REGION, NO BONY TENDERNESS, REDNESS AND DEFORMITY. ) Musculoskeletal : Apperance: Normal Neurologic: Alert, kettle cook II-XII nml as Tested, No Motor Deficits, Normal Affect, Normal Mood, No Sensory Deficits Cerebellar Function: Normal Reflexes: Normal Skin: Dry, Normal Color, Warm Peripheral Pulses: 2+ carotid (R), 2+ carotid (L), 2+ dorsalis pedis (R), 2+ dorsalis pedis (L) Lymphatic: No Adenopathy Was a procedure done? Was a procedure done?: No Differential Diagnosis EXT Differential Diagnosis: Sprain, DJD, Strain, Arthritis, Bursitis X-Ray, Labs, Meds, VS Vital Signs Date Time Temp Pulse Resp B/P (MAP) Pulse Ox O2 Delivery O2 Flow Rate FiO2 08/26/24 16:35 98.3 127 18 152/72 (98) 93 98.3 08/26/24 16:35 127 18 98 Room Air 08/26/24 15:55 97.5 124 18 152/72 (98) 93 Current Medications Medications (Trade) Dose Ordered Sig/Jony Route Start Time Stop Time Status Last Admin Ondansetron HCl (Zofran Po) 4 mg ONCE ONCE PO 08/26/24 17:00 08/26/24 17:01 DC 08/26/24 17:07 Ketorolac Tromethamine (Toradol Injection) 60 mg ONCE ONCE IM 08/26/24 17:45 08/26/24 17:46 DC 08/26/24 17:49 CLINICAL INDICATION: PAIN, NO INJURY TECHNIQUE: XY L KNEE 3V XRAY Comparison: XY R HAND 3 VIEW XRAY on DOS: 08/18/24 FINDINGS/IMPRESSION: There is no evidence of acute fracture or dislocation. Moderate left knee osteoarthritis. The alignment is anatomical. There is no radiopaque foreign body. ATED BY: NATE BERNSTEIN MD DICTATED DATE/TIME: 08/26/241739 SIGNED BY: NATE BERNSTEIN MD SIGNED DATE/TIME: 08/26/241739 CC: X-Ray, Labs, Meds, VS Comment EXTERNAL MEDICAL RECORDS REVIEWED: [NONE] INDEPENDENT HISTORIANS: [NONE] SOCIAL DETERMINANTS OF HEALTH: [NONE] LABS ORDERED: NONE REVIEWED AND INTERPRETED RESULTS: NONE IMAGING ORDERED: XR KNEE LT: [INTERPRETED BY ME. NO ACUTE FINDINGS. NO FRACTURES OR DISLOCATION. PENDING RADIOLOGIST REPORT.] TREATMENTS ORDERED: TORADOL 60MG IM, ZOFRAN 4MG PO PROCEDURES PERFORMED: NONE CRITICAL CARE TIME: NONE I HAVE DISCUSSED THE PATIENT WITH THE ATTENDING PHYSICIAN DR. LOVE AND HE AGREES WITH THE PATIENT'S PLAN OF CARE AND DISPOSITION. BASED ON HISTORY OF PRESENT ILLNESS, AND PHYSICAL EXAM, PATIENT WILL BE DISCHARGED HOME. DISCUSSED PLAN FOR DISCHARGE HOME WITH RX [NAPROXEN]. MEDICATION WARNINGS GIVEN. SHARED DECISION MAKING: DISCUSSED WITH PATIENT THAT THEIR WORKUP WAS NORMAL. PATIENT INSTRUCTED TO FOLLOW UP WITH PRIMARY CARE PROVIDER IN 1-2 DAYS FOR RE- EVALUATION OF SYMPTOMS. PATIENT VERBALIZES UNDERSTANDING TO RETURN TO ED FOR NEW OR WORSENING SYMPTOMS OR IF FOLLOW UP WITH PCP CANNOT BE OBTAINED. PATIENT FEELS COMFORTABLE GOING HOME AT THIS TIME. ALL QUESTIONS ADDRESSED AT TIME OF DISCHARGE. Images Reviewed?: Images reviewed and evaluated by me Time of 1ST Reevaluation: 18:00 Reevaluation 1ST: Improved Patient Education/Counseling: Diagnosis, Treatment, Need For Follow Up Family Education/Counseling: Diagnosis, Treatment, Need For Follow Up Medical Screening: No EMC Exist At This Time Departure 1 Departure Time of Disposition: 18:00 Impression: Primary Impression: Bursitis of left knee Qualified Codes: M70.42 - Prepatellar bursitis, left knee Additional Impression: Degenerative joint disease of left knee Qualified Codes: M17.12 - Unilateral primary osteoarthritis, left knee Disposition: 01 HOME / SELF CARE / HOMELESS Condition: Stable Additional Instructions: FOLLOW-UP WITH PCP IN 1 TO 2 DAYS. TAKE MEDICATIONS PRESCRIBED. RETURN TO ED FOR ANY NEW OR WORSENING SYMPTOMS. e-Prescriptions Naproxen (Naproxen) 500 Mg Tab 500 MG PO BID, #30 TAB Prov: HILARY MENDES 08/26/24 Discharged With: Self Critical Care Note Critical Care Time?: No Stability Stability form required: No I personally scribed for HILARY MENDES ([email or web address]) on 08/26/24 at 16:49. Electronically submitted by Alvaro Ayers (Connotate). I personally scribed for HILARY MENDES ([email or web address]) on 08/26/24 at 17:40. Electronically submitted by Alvaro Ayers (Connotate). I personally scribed for HILARY MENDES ([email or web address]) on 08/26/24 at 17:45. Electronically submitted by Alvaro Ayers (Connotate). HILARY MENDES Aug 26, 2024 16:49
[2024-08-26] MEDS: ONDANSETRON ODT 4 MG TAB PO ONE (17:07)
--- NOTE | 2024-08-26 17:42 | DVH ---
CLINICAL INDICATION: PAIN, NO INJURY TECHNIQUE: XY L KNEE 3V XRAY Comparison: XY R HAND 3 VIEW XRAY on DOS: 08/18/24 FINDINGS/IMPRESSION: There is no evidence of acute fracture or dislocation. Moderate left knee osteoarthritis. The alignment is anatomical. There is no radiopaque foreign body.
[2024-08-26] MEDS ORDERED: NAPR-746 PO (17:46)
[2024-08-26] MEDS: KETOROLAC TROMETH 60MG/2ML VIAL IM ONE (17:49)
== END 2024-08-26 17:53 | disposition home or self-care (01) ==
LOC: ER 14:51
DX: M70.52 Other bursitis of knee, left knee (principal); M17.12 Unilateral primary osteoarthritis, left knee; E11.9 Type 2 diabetes mellitus without complications; J44.9 Chronic obstructive pulmonary disease, unspecified; Z79.1 Long term (current) use of non-steroidal anti-inflammatories (NSAID); Z79.52 Long term (current) use of systemic steroids
CPT/HCPCS: 73562; 96372; 99283; J1885; Q0162

== ENCOUNTER 2024-09-07 12:44 | Emergency (ER) | payer MEDICAID ==
[~2024-09-07] VITALS: Ht 167.6 cm; Wt 108.0 kg
[~2024-09-07 12:44] MED LIST changes: +NAPR-746 PO
[2024-09-07 13:18] VITALS: RESP 20
--- NOTE | 2024-09-07 13:38 | ED.PDOC ---
History of Present Illness HPI Comments 59Y M with PMHx DM, COPD, and arthritis presents to ED for chief complaint SOB x2days with dizziness, lightheadedness, and sharp LLE pain. The LLE pain has been present for one day with swelling and redness. Pt states heat pads help alleviate the LLE pain. Pt denies using oxygen supplementation at home but does use a CPAP machine. Chief Complaint: Shortness of Breath Time Seen by MD: 13:02 Primary Care Provider: BALTA Reviewed Notes: Nurses Notes, Medications, Allergies Allergies: Coded Allergies: NO KNOWN ALLERGIES (Unverified , 03/18/24) Home Meds Active Scripts Naproxen (Naproxen) 500 Mg Tab, 500 MG PO BID, #30 TAB Prov:HILARY MENDES 08/26/24 Ibuprofen (Ibuprofen) 600 Mg Tab, 1 TAB PO TID, #30 TAB Prov:ZAINAB CARNES 08/20/24 Acetaminophen (Tylenol 8 Hour Arthritis) 650 Mg Tab, 650 MG PO TID, #30 TAB Prov:HILARY MENDES 08/18/24 Promethazine-Dm (Promethazine Dm 6.25-15 mg/5Ml) 1 Ochoa Ochoa, 10 OCHOA PO TID, #180 ML Prov:HILARY MENDES 03/18/24 Prednisone (Prednisone) 20 Mg Tab, 60 MG PO DAILY for 5 Days, #15 TAB Prov:HILARY MENDES 03/18/24 Levofloxacin Hemihydrate (LEVAQUIN 500 MG) 500 Mg Tab, 1 TAB PO DAILY, #10 TAB Prov:HILARY MENDES 03/18/24 Information Source: Patient Mode of Arrival: Ambulatory Severity: Mild Timing: Days Duration: Since onset Past Medical History PAST MEDICAL HISTORY: Arthritis, COPD, DM Surgical History: Denies all surgeries Family History Family History: Reviewed,noncontributory to illness Social History Smoker: Non-Smoker Alcohol: Denies ETOH Use Drugs: Denies Drug Use Lives In: Home Constitutional: denies: chills, diaphoresis, fatigue, fever, malaise, sweats, weakness, others EENTM: denies: blurred vision, double vision, ear bleeding, ear discharge, ear drainage, ear pain, ear ringing, eye pain, eye redness, hearing loss, mouth pain, mouth swelling, nasal discharge, nose bleeding, nose congestion, nose pain, photophobia, tearing, throat pain, throat swelling, voice changes, others Respiratory: reports: shortness of breath; denies: cough, hemoptysis, orthopnea, SOB at rest, SOB with excertion, stridor, wheezing, others Cardiovascular: reports: lightheadedness; denies: chest pain, dizzy spells, diaphoresis, Dyspnea on exertion, edema, irregular heart beat, left arm pain, palpitations, PND, syncope, others Gastrointestinal: denies: abdomen distended, abdominal pain, blood streaked bowels, constipated, diarrhea, dysphagia, difficulty swallowing, hematemesis, melena, nausea, poor appetite, poor fluid intake, rectal bleeding, rectal pain, vomiting, others Genitourinary: denies: burning, dysuria, flank pain, frequency, hematuria, incontinence, penile discharge, penile sore, pain, testicle pain, testicle swelling, urgency, others Neurological: reports: dizziness; denies: fainting, headache, left sided numbness, left sided weakness, numbness, paresthesia, pre-existing deficit, right sided numbness, right sided weakness, seizure, speech problems, tingling, tremors, weakness, others Musculoskeletal: reports: others (LLE pain); denies: back pain, gout, joint pain, joint swelling, muscle pain, muscle stiffness, neck pain Integumetry: denies: bruises, change in color, change in hair/nails, dryness, laceration, lesions, lumps, rash, wounds, others Allergic/Immunocompromised: denies: Difficulty Healing, Frequent Infections, Hives, Itching, others Hematologic/Lymphatic: denies: anemia, blood clots, easy bleeding, easy bruising, swollen glands, others Endocrine: denies: excessive hunger, excessive sweating, excessive thirst, excessive urination, flushing, intolerance to cold, intolerance to heat, unexplained weight gain, unexplained weight loss, others Psychiatric: denies: anxiety, bipolar disorder, depression, hopeless, panic disorder, schizophrenia, sleepless, suicidal, others All Other Systems: Reviewed and Negative Physical Exam General Appearance: No Apparent Distress, Normal HEENT: Normal ENT Inspection, Pharynx Normal, TMs Normal Neck: Full Range of Motion, Non-Tender, Normal, Normal Inspection Respiratory: Chest Non-Tender, Lungs Clear, No Accessory Muscle Use, No Respiratory Distress, Normal Breath Sounds Cardiovascular: No Edema, No JVD, No Murmur, No Gallop, Normal Peripheral Pulses, Tachycardia Breast Exam: Deferred Gastrointestinal: No Organomegaly, Non Tender, No Pulsatile Mass, Normal Bowel Sounds, Soft Genitalia: Deferred Pelvic: Deferred Rectal: Deferred Extremities: No calf tenderness, Normal capillary refill, Normal inspection, Normal range of motion, Non-tender, No pedal edema Musculoskeletal : Location: Left Extremity Location: Knee Apperance: Swelling, Other (redness) Neurologic: Alert, 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 Was a procedure done?: No Differential Dx Considerations may include: acs, pneumonia, viral syndrome, copd X-Ray, Labs, Meds, VS Vital Signs Date Time Temp Pulse Resp B/P (MAP) Pulse Ox O2 Delivery O2 Flow Rate FiO2 09/07/24 13:18 98.6 116 20 109/52 (71) 92 09/07/24 13:07 106 Lab Test 09/07/24 13:30 Range/Units White Blood Count 14.0 H 4.4-10.8 10^3/uL Red Blood Count 5.53 4.5-5.90 10^6/uL Hemoglobin 17.2 13.5-17.5 g/dL Hematocrit 50.7 41.0-53.0 % Mean Corpuscular Volume 91.6 80.0-100.0 fL Mean Corpuscular Hemoglobin 31.1 28.0-32.0 pg Mean Corpuscular Hemoglobin Concent 33.9 32.0-36.0 g/dL Red Cell Distribution Width 14.5 H 11.8-14.3 % Platelet Count 307 140-450 10^3/uL Mean Platelet Volume 8.2 6.9-10.8 fL Neutrophils (%) (Auto) 73.7 37.0-80.0 % Lymphocytes (%) (Auto) 15.4 10.0-50.0 % Monocytes (%) (Auto) 7.9 0.0-12.0 % Eosinophils (%) (Auto) 1.8 0.0-7.0 % Basophils (%) (Auto) 1.2 0.0-2.0 % Neutrophils # (Auto) 10.3 H 1.6-8.6 10 ^3/uL Lymphocytes # (Auto) 2.2 0.4-5.4 10 ^3/uL Monocytes # (Auto) 1.1 0-1.3 10 ^3/uL Eosinophils # (Auto) 0.3 0-0.8 10 ^3/uL Basophils # (Auto) 0.2 0-0.2 10 ^3/uL Nucleated Red Blood Cells 0.0 % D-Dimer, Quantitative 0.40 0.0-0.49 mg/L FEU Sodium Level 139 136-145 mmol/L Potassium Level 4.2 3.5-5.1 mmol/L Chloride Level 108 H 98-107 mmol/L Carbon Dioxide Level 22 20-31 mmol/L Anion Gap 9 5-15 Blood Urea Nitrogen 11 9-23 mg/dL Creatinine 0.92 0.700-1.30 mg/dL Glomerular Filtration Rate Calc 97 >90 mL/min BUN/Creatinine Ratio 12.0 10.0-20.0 Serum Glucose 125 H 74-106 mg/dL Calcium Level 10.0 8.7-10.4 mg/dL B-Type Natriuretic Peptide 10.65 0-100 pg/mL [place] [address] Ph: [phone] DIAGNOSTIC IMAGING Diagnostic Imaging Report : [id number] Signed PATIENT: APRIL CHAPARROACCT: [id number] UNIT: [id number] : 1965 LOC: ER ROOM / BED: / AGE / SEX: 59 / M ADM STATUS: REG ER SERVICE 1304 ORDERING PHYSICIAN: BONIFACIO GU MD PROCEDURE(s): CXR2 - CHEST TWO VIEWS ROUTINE REASON: sob ORDER NUMBER(s): [id number], ACCESSION NUMBER(s): [id number] EXAM: XY CHEST TWO VIEWS ROUTINE TECHNIQUE: Two radiographic views of the chest CLINICAL HISTORY: sob COMPARISON: None Findings/Impression: Frontal and lateral chest radiographs demonstrate no acute osseous or superficial soft tissue abnormalities. The trachea is midline. The cardiac silhouette and mediastinum are within normal limits. Left basilar scarring. No pneumothorax, pleural effusions, or consolidations. ATED BY: SANDRA ESCALANTE DO DICTATED DATE/TIME: 09/07/241335 SIGNED BY: SANDRA ESCALANTE DO SIGNED DATE/TIME: 09/07/241335 CC: [place] [id number] Ph: [phone] DIAGNOSTIC IMAGING Diagnostic Imaging Report : [id number] Signed PATIENT: APRIL CHAPARROT: [id number] UNIT: [id number] : 1965 LOC: ER ROOM / BED: / AGE / SEX: 59 / M ADM STATUS: REG ER SERVICE 1304 ORDERING PHYSICIAN: BONIFACIO GU MD PROCEDURE(s): LKNE3 - L KNEE 3V XRAY REASON: left knee pain ORDER NUMBER(s): [id number], ACCESSION NUMBER(s): [id number] EXAM: XY L KNEE 3V XRAY CLINICAL HISTORY: left knee pain COMPARISON: XY L KNEE 3V XRAY on DOS: 08/26/24 TECHNIQUE: XY L KNEE 3V XRAY Findings/Impression: 3 views of the left knee. There is no evidence of an acute fracture, dislocation, blastic, or lytic lesions. No radiopaque foreign bodies. No joint effusion. Moderate anterior soft tissue edema. ATED BY: SANDRA ESCALANTE DO DICTATED DATE/TIME: 09/07/241335 SIGNED BY: SANDRA ESCALANTE DO SIGNED DATE/TIME: 09/07/241335 CC: [place] [address] Ph: [phone] DIAGNOSTIC IMAGING Diagnostic Imaging Report : [id number] Signed PATIENT: APRIL CHAPARROT: [id number] UNIT: [id number] : 1965 LOC: ER ROOM / BED: / AGE / SEX: 59 / M ADM STATUS: REG ER SERVICE 1304 ORDERING PHYSICIAN: BONIFACIO GU MD PROCEDURE(s): LLDVT - LT Lower DVT REASON: left leg pain ORDER NUMBER(s): [id number], ACCESSION NUMBER(s): [id number] Left lower extremity venous duplex Clinical History: left leg pain Comparison: None Technique: Duplex Doppler evaluation of the deep venous system of the left lower extremity from the common femoral vein to the popliteal vein including color Doppler and spectral/pulsed waveform analysis was performed. Findings: The common femoral vein demonstrates appropriate compressibility and waveform variability. There is compressibility/patency of the great saphenous vein at the proximal thigh. The femoral vein demonstrates appropriate compressibility and waveform variability. The deep femoral vein demonstrates appropriate compressibility and waveform variability. The popliteal vein demonstrates appropriate compressibility and waveform variability. There is normal compressibility at the tibioperoneal trunk. Prominent left groin lymph node measuring 0.8 cm in short axis, not grossly enlarged by size criteria. Impression: 1. No left femoropopliteal venous thrombosis. 2. If clinical concern/symptoms persist or worsen, short-interval follow-up study is suggested. HS:Y ATED BY: NILA ARANGO DO DICTATED DATE/TIME: 09/07/241415 SIGNED BY: NILA ARANGO DO SIGNED DATE/TIME: 09/07/241415 CC: Time of 1ST Reevaluation: 13:32 Reevaluation 1ST: Unchanged Patient Education/Counseling: Diagnosis, Treatment Family Education/Counseling: No Family Present Departure 1 Departure Time of Disposition: 17:44 (Patient with worsening shortness of breath. Workup so far is benign however patient is still very dyspneic with mild exertion. We will admit patient for further workup) Impression: Primary Impression: Shortness of breath Additional Impression: Generalized weakness Disposition: 09 ADMITTED INPATIENT Admit to: Med Surg Condition: Serious Critical Care Note Critical Care Time?: No Stability Stability form required: No Heart Score Heart Score: Heart Score Response (Comments) Value History Slightly Suspicious 0 EKG Repolarization Disturb 1 Age 45-64 1 Risk Factors >3 or Hx ASHD 2 Troponin Normal limit 0 Total 4 I personally scribed for BONIFACIO GU MD ([email or web address]) on 09/07/24 at 13:38. Electronically submitted by Danica Kelly ([facility] I personally scribed for BONIFACIO GU MD ([facility]) on 09/07/24 at 16:28. Electron[facility] by Danica Kelly ([facility] BONIFACIO GU MD Sep 07, 2024 13:38
[2024-09-07 14:03] LABS: Basophils # (auto) 0.2 10 ^3/uL (0-0.2); Basophils % (auto) 1.2 % (0.0-2.0); Eosinophils # (auto) 0.3 10 ^3/uL (0-0.8); Eosinophils % (auto) 1.8 % (0.0-7.0); Hematocrit 50.7 % (41.0-53.0); Hemoglobin 17.2 g/dL (13.5-17.5); Lymphocytes # (auto) 2.2 10 ^3/uL (0.4-5.4); Lymphocytes % (auto) 15.4 % (10.0-50.0); Mean Corpuscular Hemoglobin 31.1 pg (28.0-32.0); Mean Corpuscular Hgb Conc. 33.9 g/dL (32.0-36.0); Mean Corpuscular Volume 91.6 fL (80.0-100.0); Monocytes # (auto) 1.1 10 ^3/uL (0-1.3); Monocytes % (auto) 7.9 % (0.0-12.0); Neutrophils # (auto) 10.3 10 ^3/uL (1.6-8.6); Neutrophils % (auto) 73.7 % (37.0-80.0); Platelet Count (auto) 307 10^3/uL (140-450); Red Blood Cells 5.53 10^6/uL (4.5-5.90); Red Cell Distribution Width 14.5 % (11.8-14.3)
[2024-09-07 14:07] LABS: Anion Gap 9 (5-15); Carbon Dioxide 22 mmol/L (20-31); Potassium 4.2 mmol/L (3.5-5.1); Sodium 139 mmol/L (136-145)
[2024-09-07 14:13] LABS: Blood Urea Nitrogen 11 mg/dL (9-23)
[2024-09-07 14:17] LABS: Chloride 108 mmol/L (98-107); Glucose 125 mg/dL (74-106)
--- NOTE | 2024-09-07 14:18 | DVH ---
Left lower extremity venous duplex Clinical History: left leg pain Comparison: None Technique: Duplex Doppler evaluation of the deep venous system of the left lower extremity from the c ommon femoral vein to the popliteal vein including color Doppler and spectral/pulsed waveform analysi s was performed. Findings: The common femoral vein demonstrates appropriate compressibility and waveform variability. There is compressibility/patency of the great saphenous vein at the proximal thigh. The femoral vein demonstrates appropriate compressibility and waveform variability. The deep femoral vein demonstrates appropriate compressibility and waveform variability. The popliteal vein demonstrates appropriate compressibility and waveform variability. There is normal compressibility at the tibioperoneal trunk. Prominent left groin lymph node measuring 0.8 cm in short axis, not grossly enlarged by size criteria . Impression: 1. No left femoropopliteal venous thrombosis. 2. If clinical concern/symptoms persist or worsen, short-interval follow-up study is suggested. HS:Y
[2024-09-07 20:35] VITALS: BP 117/71; PULSE 101; TEMP 98.1; O2SAT 98
--- NOTE | 2024-09-07 22:43 | DVH ---
INDICATION: left knee pain COMPARISON: None TECHNIQUE: CT of the left knee was performed without contrast. Volume transverse images were obtaine d and reconstructed in multiple planes using bone and soft tissue algorithms. CONTRAST: None Radiation Dose Information: CTDI volume is 7.8 mGy. Dose-length product is 210 mGy*cm FINDINGS: The alignment is normal. The joint spaces are normal. There is no fracture, dislocation, or focal osseous lesions. There is no suprapatellar joint effusion. Prepatellar edema, fat stranding, and skin thickening, suspicious for prepatellar bursitis. IMPRESSION: 1. No acute traumatic fracture or dislocation. 2. Findings suggestive of prepatellar bursitis. 3. All CT scans at this medical facility are performed using dose modulation techniques as appropriat e to a performed exam including the following: Automated exposure control was utilized; adjustment of the MA and/or KV according to patient size; and use of iterative reconstruction technique.
[2024-09-08] MEDS ORDERED: CLIN1CAP70 PO (00:57)
--- NOTE | 2024-09-08 18:52 | ECG ---
[facility] Test Date: 2024-09-07 Test Time: 13:07:58 Pat Name: APRIL CHAPARRO Department: ER Room: Gender: M Neurological Physiotherapist: NORMA : 1965 Requested By: BONIFACIO GU Order Number: [id number] Reading MD: Measurements Intervals [place] Rate: 109 P: 71 IL: 137 QRS: 96 QRSD: 96 T: 59 QT: 328 QTc: 442 Interpretive Statements Sinus tachycardia Ventricular premature complex Aberrant conduction of SV complex(es) Borderline right axis deviation Low voltage, precordial leads Please click the below link to view image of tracing.
== END 2024-09-08 00:48 | disposition left against medical advice (07) ==
LOC: ER 12:44
DX: R06.02 Shortness of breath (principal); R53.1 Weakness; R07.9 Chest pain, unspecified; E11.9 Type 2 diabetes mellitus without complications; J44.9 Chronic obstructive pulmonary disease, unspecified; M19.90 Unspecified osteoarthritis, unspecified site
CPT/HCPCS: 36415; 71046; 73562; 73700; 80048; 83880; 85025; 85379; 93005; 93971

== ENCOUNTER 2024-10-20 21:14 | Emergency (ER) | payer MEDICARE, MEDICAID ==
[~2024-10-20] VITALS: Ht 167.6 cm; Wt 108.2 kg
[~2024-10-20 21:14] MED LIST changes: +CLIN1CAP70 PO
[2024-10-20 21:45] VITALS: BP 126/71; PULSE 93; RESP 18; O2SAT 93
== END 2024-10-21 01:01 | disposition left against medical advice (07) ==
LOC: ER 21:14
DX: F41.9 Anxiety disorder, unspecified (principal); I95.89 Other hypotension; Z53.21 Procedure and treatment not carried out due to patient leaving prior to being seen by health care provider

== ENCOUNTER 2024-10-21 13:57 | Emergency (ER) | payer MEDICARE, MEDICAID ==
[~2024-10-21] VITALS: Ht 167.6 cm; Wt 106.7 kg
[2024-10-21 15:41] VITALS: BP 110/65; PULSE 105; RESP 18; TEMP 98.2; O2SAT 94
--- NOTE | 2024-10-21 15:43 | ED.PDOC ---
History of Present Illness HPI Comments This patient is a morbidly obese 59-year-old male who arrives the ED today with complaints of generalized weakness and blood pressure concerns for the past week. Patient states his blood pressure was below 90 earlier today. Patient's psychiatrist recently started the patient on Abilify on top of the Lexapro and additional medications he takes for psychosis. Patient states that ever since he started the Abilify, he has been feeling weak and his blood pressure has been low. Patient denies any fever nausea or vomiting. Patient was mildly hypotensive on arrival. Chief Complaint: Low Blood Pressure Time Seen by MD: 15:10 Primary Care Provider: ata Leung Notes: Nurses Notes, Medications, Allergies Allergies: Coded Allergies: NO KNOWN ALLERGIES (Unverified , 03/18/24) Home Meds Active Scripts Clindamycin Hcl (Clindamycin Hcl) 300 Mg Cap, 1 CAP PO BID for 7 Days, #14 CAP Prov:NICOLE MCKNIGHT MD 09/08/24 Naproxen (Naproxen) 500 Mg Tab, 500 MG PO BID, #30 TAB Prov:HILARY MENDES 08/26/24 Ibuprofen (Ibuprofen) 600 Mg Tab, 1 TAB PO TID, #30 TAB Prov:ZAINAB CARNES 08/20/24 Acetaminophen (Tylenol 8 Hour Arthritis) 650 Mg Tab, 650 MG PO TID, #30 TAB Prov:HILARY MENDES 08/18/24 Promethazine-Dm (Promethazine Dm 6.25-15 mg/5Ml) 1 Ochoa Ochoa, 10 OCHOA PO TID, #180 ML Prov:HILARY MENDES 03/18/24 Prednisone (Prednisone) 20 Mg Tab, 60 MG PO DAILY for 5 Days, #15 TAB Prov:HILARY MENDES 03/18/24 Levofloxacin Hemihydrate (LEVAQUIN 500 MG) 500 Mg Tab, 1 TAB PO DAILY, #10 TAB Prov:HILARY MENDES 03/18/24 Information Source: Patient Mode of Arrival: Ambulatory Severity: Moderate Timing: Days Duration: Since onset, Days Prehospital treatment: None Past Medical History PAST MEDICAL HISTORY: Anxiety, Arthritis, COPD, Depression, DM Surgical History: Denies all surgeries Family History Family History: Reviewed,noncontributory to illness, Unknown Social History Smoker: Non-Smoker Alcohol: Denies ETOH Use Drugs: Denies Drug Use Lives In: Home Constitutional: reports: fatigue, weakness, others (lightheaded); denies: chills, diaphoresis, fever, malaise, sweats EENTM: denies: blurred vision, double vision, ear bleeding, ear discharge, ear drainage, ear pain, ear ringing, eye pain, eye redness, hearing loss, mouth pain, mouth swelling, nasal discharge, nose bleeding, nose congestion, nose pain, photophobia, tearing, throat pain, throat swelling, voice changes, others Respiratory: denies: cough, hemoptysis, orthopnea, SOB at rest, shortness of breath, SOB with excertion, stridor, wheezing, others Cardiovascular: denies: chest pain, dizzy spells, diaphoresis, Dyspnea on exertion, edema, irregular heart beat, left arm pain, lightheadedness, palpitations, PND, syncope, others Gastrointestinal: denies: abdomen distended, abdominal pain, blood streaked bowels, constipated, diarrhea, dysphagia, difficulty swallowing, hematemesis, melena, nausea, poor appetite, poor fluid intake, rectal bleeding, rectal pain, vomiting, others Genitourinary: denies: burning, dysuria, flank pain, frequency, hematuria, incontinence, penile discharge, penile sore, pain, testicle pain, testicle swelling, urgency, others Neurological: reports: dizziness; denies: fainting, headache, left sided numbness, left sided weakness, numbness, paresthesia, pre-existing deficit, right sided numbness, right sided weakness, seizure, speech problems, tingling, tremors, weakness, others Musculoskeletal: denies: back pain, gout, joint pain, joint swelling, muscle pain, muscle stiffness, neck pain, others Integumetry: denies: bruises, change in color, change in hair/nails, dryness, laceration, lesions, lumps, rash, wounds, others Allergic/Immunocompromised: denies: Difficulty Healing, Frequent Infections, Hives, Itching, others Hematologic/Lymphatic: denies: anemia, blood clots, easy bleeding, easy bruising, swollen glands, others Endocrine: denies: excessive hunger, excessive sweating, excessive thirst, excessive urination, flushing, intolerance to cold, intolerance to heat, unexplained weight gain, unexplained weight loss, others Psychiatric: reports: anxiety; denies: bipolar disorder, depression, hopeless, panic disorder, schizophrenia, sleepless, suicidal, others All Other Systems: Reviewed and Negative Physical Exam General Appearance: Mild Distress (Patient was only in mild distress at time of evaluation. Patient did not look toxic.), Normal HEENT: Normal ENT Inspection, Pharynx Normal, TMs Normal Neck: Full Range of Motion, Non-Tender, Normal, Normal Inspection Respiratory: Chest Non-Tender, Lungs Clear, No Accessory Muscle Use, No Respiratory Distress, Normal Breath Sounds Cardiovascular: No Edema, No JVD, No Murmur, No Gallop, Normal Peripheral Pulses, Regular Rate/Rhythm Breast Exam: Deferred Gastrointestinal: No Organomegaly, Non Tender, No Pulsatile Mass, Normal Bowel Sounds, Soft Genitalia: Deferred Pelvic: Deferred Rectal: Deferred Extremities: No calf tenderness, Normal capillary refill, Normal inspection, Normal range of motion, Non-tender, No pedal edema Musculoskeletal : Apperance: Normal Neurologic: Alert, No Motor Deficits, Normal Affect, Normal Mood, No Sensory Deficits Cerebellar Function: Normal Reflexes: Normal Skin: Dry, Normal Color, Warm Lymphatic: No Adenopathy Was a procedure done? Was a procedure done?: No Differential Dx Considerations may include: Viral illness, electrolyte abnormality, sepsis, pneumonia, viral illness, CHF, adverse reaction to medication taken as directed. X-Ray, Labs, Meds, VS Vital Signs Date Time Temp Pulse Resp B/P (MAP) Pulse Ox O2 Delivery O2 Flow Rate FiO2 10/21/24 15:41 105 18 94 Room Air 10/21/24 15:41 98.2 105 18 110/65 (80) 94 98.2 10/21/24 14:35 97.7 107 19 106/73 (84) 95 Lab Test 10/21/24 15:26 Range/Units White Blood Count 11.2 H 4.4-10.8 10^3/uL Red Blood Count 5.62 4.5-5.90 10^6/uL Hemoglobin 17.2 13.5-17.5 g/dL Hematocrit 51.3 41.0-53.0 % Mean Corpuscular Volume 91.3 80.0-100.0 fL Mean Corpuscular Hemoglobin 30.7 28.0-32.0 pg Mean Corpuscular Hemoglobin Concent 33.6 32.0-36.0 g/dL Red Cell Distribution Width 15.1 H 11.8-14.3 % Platelet Count 301 140-450 10^3/uL Mean Platelet Volume 8.4 6.9-10.8 fL Neutrophils (%) (Auto) 68.2 37.0-80.0 % Lymphocytes (%) (Auto) 20.6 10.0-50.0 % Monocytes (%) (Auto) 8.1 0.0-12.0 % Eosinophils (%) (Auto) 2.0 0.0-7.0 % Basophils (%) (Auto) 1.1 0.0-2.0 % Neutrophils # (Auto) 7.6 1.6-8.6 10 ^3/uL Lymphocytes # (Auto) 2.3 0.4-5.4 10 ^3/uL Monocytes # (Auto) 0.9 0-1.3 10 ^3/uL Eosinophils # (Auto) 0.2 0-0.8 10 ^3/uL Basophils # (Auto) 0.1 0-0.2 10 ^3/uL Nucleated Red Blood Cells 0.1 % Sodium Level 140 136-145 mmol/L Potassium Level 4.1 3.5-5.1 mmol/L Chloride Level 107 98-107 mmol/L Carbon Dioxide Level 23 20-31 mmol/L Anion Gap 10 5-15 Blood Urea Nitrogen 16 9-23 mg/dL Creatinine 0.93 0.700-1.30 mg/dL Glomerular Filtration Rate Calc 96 >90 mL/min BUN/Creatinine Ratio 17.2 10.0-20.0 Serum Glucose 108 H 74-106 mg/dL Calcium Level 10.0 8.7-10.4 mg/dL Troponin I High Sensitivity 5 </=54 ng/L B-Type Natriuretic Peptide 4.72 0-100 pg/mL Current Medications Medications (Trade) Dose Ordered Sig/Jony Route Start Time Stop Time Status Last Admin Sodium Chloride 1,000 ml @ 1,000 mls/hr Q1H ONCE IV 10/21/24 15:15 10/21/24 16:14 DC 10/21/24 15:46 X-Ray, Labs, Meds, VS Comment All studies performed the ED were evaluated by me personally. Laboratories were unremarkable for any systemic process. Imaging studies showed some pulmonary congestion that may be related to chronic concerns. I think the patient's blood pressure issues have to do with side effects related to his multiple psych medications. Advised patient to cease the Abilify use and talk to his primary care provider about replacement for that medication. Advised good hydration and healthy nutrition throughout. Time of 1ST Reevaluation: 16:24 Reevaluation 1ST: Improved Consultation: PCP, Psychiatry Patient Education/Counseling: Diagnosis, Treatment, Prognosis Family Education/Counseling: Diagnosis, Treatment, No Family Present Departure 1 Departure Time of Disposition: 16:25 Impression: Primary Impression: Adverse reaction to antidepressant drug Disposition: 01 HOME / SELF CARE / HOMELESS Condition: Stable Additional Instructions: Advised patient to cease Abilify use and contact his dispensing provider for discussions related to options to the Abilify medication. Advised good hydration and healthy nutrition. Discharged With: Self Critical Care Note Critical Care Time?: No Stability Stability form required: No Heart Score Heart Score: Heart Score Response (Comments) Value History Slightly Suspicious 0 EKG Repolarization Disturb 1 Age 45-64 1 Risk Factors 1 or 2 risk factors 1 Troponin Normal limit 0 Total 3 I personally scribed for LOKI RUSS PAC ([email or web address]) on 10/21/24 at 15:43. Electronically submitted by Fernando Cuello ([email or web address]). LOKI RSUS PAC Oct 21, 2024 15:43
[2024-10-21 15:45] LABS: Basophils # (auto) 0.1 10 ^3/uL (0-0.2); Basophils % (auto) 1.1 % (0.0-2.0); Eosinophils # (auto) 0.2 10 ^3/uL (0-0.8); Hematocrit 51.3 % (41.0-53.0); Hemoglobin 17.2 g/dL (13.5-17.5); Lymphocytes # (auto) 2.3 10 ^3/uL (0.4-5.4); Lymphocytes % (auto) 20.6 % (10.0-50.0); Mean Corpuscular Hemoglobin 30.7 pg (28.0-32.0); Mean Corpuscular Hgb Conc. 33.6 g/dL (32.0-36.0); Mean Corpuscular Volume 91.3 fL (80.0-100.0); Monocytes # (auto) 0.9 10 ^3/uL (0-1.3); Monocytes % (auto) 8.1 % (0.0-12.0); Neutrophils # (auto) 7.6 10 ^3/uL (1.6-8.6); Neutrophils % (auto) 68.2 % (37.0-80.0); Nucleated Red Blood Cells % 0.1 %; Platelet Count (auto) 301 10^3/uL (140-450); Red Blood Cells 5.62 10^6/uL (4.5-5.90); Red Cell Distribution Width 15.1 % (11.8-14.3); White Blood Cell 11.2 10^3/uL (4.4-10.8)
[2024-10-21] MEDS: SODIUM CHLORIDE 0.9% 1,000 ML IV ONE (15:46)
--- NOTE | 2024-10-21 15:57 | DVH ---
CHEST RADIOGRAPH Indication: Shortness of breath Technique: Single frontal view of the chest was obtained COMPARISON: XY CHEST PORTABLE on DOS: 03/18/24 FINDINGS: Lines and Tubes: None Lungs: Increased interstitial prominence Pleura: No effusion. No pneumothorax. Cardiomediastinal contours: Unremarkable Bones: Unremarkable IMPRESSION: Mild pulmonary vascular congestion versus viral pneumonia.
[2024-10-21 16:02] LABS: Chloride 107 mmol/L (98-107); Potassium 4.1 mmol/L (3.5-5.1); Sodium 140 mmol/L (136-145)
[2024-10-21 16:03] LABS: Anion Gap 10 (5-15); Carbon Dioxide 23 mmol/L (20-31)
[2024-10-21 16:08] LABS: BUN/Creatinine Ratio 17.2 (10.0-20.0); Blood Urea Nitrogen 16 mg/dL (9-23)
[2024-10-21 16:13] LABS: Glucose 108 mg/dL (74-106)
== END 2024-10-21 17:04 | disposition home or self-care (01) ==
LOC: ER 13:57
DX: R53.1 Weakness (principal); I95.9 Hypotension, unspecified; T43.205A Adverse effect of unspecified antidepressants, initial encounter; E11.9 Type 2 diabetes mellitus without complications; F32.A Depression, unspecified; F41.9 Anxiety disorder, unspecified; J44.9 Chronic obstructive pulmonary disease, unspecified; Z79.1 Long term (current) use of non-steroidal anti-inflammatories (NSAID); Z79.52 Long term (current) use of systemic steroids; Z79.899 Other long term (current) drug therapy; Y92.89 Other specified places as the place of occurrence of the external cause
CPT/HCPCS: 36415; 71045; 80048; 83880; 84484; 85025; 96360; 99284; J7030

== ENCOUNTER → 2025-01-09 | Outpatient (CLI) | payer OTHER, MEDICAID ==
[2025-01-09] MEDS: REGADENOSON 0.4 MG/5 ML SYRG IV ONE ×2 (10:19→10:20)
--- NOTE | 2025-01-10 07:57 | DVHSR ---
APPROVED REPORT Exam: Nuclear Stress Test Indication: Pre-Operative CV evaluation Stress Tech: Eva Rangel Ht: 5 ft 6 in Wt: 254 lbs BSA: 2.21 m2 BMI: 40.99 Medical History Medical History: HTN, Diabetes, COPD, Obesity, FORMER SMOKER Allergies: No known drug allergies Stress Test Details Stress Test: Pharmacologic stress testing performed using 0.4 mg of regadenoson per 5 mL given IV ov er 10 seconds. Reason for pharmacologic stress test: CARDIAC CLEARANCE. HR Resting HR: 85 bpmMax Heart Rate (APMHR): 163.096170 bpm Max HR Achieved: 109 bpmTarget HR (85% APMHR): 138.557058 bpm % of APMHR: 66.87 Recovery HR: 96 bpm BP Resting BP: 154/88 mmHg Recovery BP: 146/85 mmHg ECG Resting ECG: Sinus Rhythm Clinical Reason for Termination: Completed protocol Nurse Comments Received patient from Nuclear Medicine. Patient is A&O x4 and on RA. FOR VS please refer back to st ress test assessment documentation. Patient is connected to case monitor. See cardio-neuro proce dural notes for addtional details. PIV flushes well. Reviewed POC and patient verbalizes understand ing and consents to test. Lexiscan stress test performed per protocol. studio technician administered the Cardiolite. Pat ient tolerated well and vitals returned to baseline. Transferred to Nuclear Medicine via wheelchair with tech in stable condition. Stress ECG Conclusion lvef 55% no severe ischemia noted mild GI artifact noted NM EXAM: Myocardial Perfusion REST/STRESS Imaging Protocol: Rest Tc-99m/Stress Tc-99m 1 day Resting Data Rest SPECT myocardial perfusion imaging was performed in supine position 45 minutes following the int ravenous injection of 12.0 mCi of Tc-99m Sestamibi. Time of rest injection: 09:30 Date: 01/09/2025 Time of rest imagin:15 Date: 01/09/2025 Administration Route: IV Administration Site: Right AC Pharmacologic Stress Pharmacologic stress test was performed by injecting Regadenoson 0.4 mg IV push followed by the intra venous injection of 32.7 mCi of Tc-99m Sestamibi. Time of stress injection: 10:20 Date: 01/09/2025 Time of stress imagin:20 Administration Route: IV Administration Site: Right AC Gated Stress SPECT was performed 60 minutes after stress injection. The images were gated to evaluate regional wall motion and calculate left ventricular ejection fracti on. Stress only was performed in the position. Nuclear Conclusion Nuclear Findings: negative for ischemia lvef 55% no severe ischemia noted mild GI artifact noted
== END | disposition home or self-care (01) ==
LOC: XYW 08:56
PROVIDERS: ATTEND Student in an Organized Health Care Education/Training Program
DX: Z01.810 Encounter for preprocedural cardiovascular examination (principal); M25.562 Pain in left knee; I10 Essential (primary) hypertension; E11.65 Type 2 diabetes mellitus with hyperglycemia; J44.9 Chronic obstructive pulmonary disease, unspecified; E66.9 Obesity, unspecified; Z87.891 Personal history of nicotine dependence; Z68.41 Body mass index [BMI] 40.0-44.9, adult
CPT/HCPCS: 78452; 93017; A9500; J2785

== ENCOUNTER 2025-01-13 12:14 | Emergency (ER) | payer OTHER, MEDICAID ==
[~2025-01-13] VITALS: Ht 167.6 cm; Wt 114.2 kg
[2025-01-13 12:50] VITALS: BP 110/52; PULSE 110; RESP 18; TEMP 98.3; O2SAT 96
--- NOTE | 2025-01-13 13:07 | ED.PDOC ---
Musculoskeletal HPI Comments A 59 YEAR OLD MALE PRESENTS TO THE ED WITH CHIEF COMPLAINT OF RIGHT HAND INJURY. PATIENT REPORTS THAT WHILE EXERCISING LAST NIGHT, HE HAD ACCIDENTALLY HIT HIS RT HAND AGAINST A METAL BAR, CAUSING PAIN. PATIENT DENIES ANY NUMBNESS, TINGLING, WEAKNESS, OR FURTHER INJURY. NO FURTHER COMPLAINTS OR SYMPTOMS AT THIS TIME. PT IS ABLE TO MOVE HIS RIGHT HAND WITH NORMAL ROM. Chief Complaint: Upper Extremity Time Seen by MD: 13:04 Primary Care Provider: ata Leung Notes: Nurses Notes, Medications, Allergies Allergies: Coded Allergies: NO KNOWN ALLERGIES (Unverified , 03/18/24) Home Meds Active Scripts Ibuprofen (Ibuprofen) 800 Mg Tab, 1 TAB PO TID, #30 TAB Prov:HILARY MENDES 01/13/25 Clindamycin Hcl (Clindamycin Hcl) 300 Mg Cap, 1 CAP PO BID for 7 Days, #14 CAP Prov:NICOLE MCKNIGHT MD 09/08/24 Naproxen (Naproxen) 500 Mg Tab, 500 MG PO BID, #30 TAB Prov:HILARY MENDES 08/26/24 Ibuprofen (Ibuprofen) 600 Mg Tab, 1 TAB PO TID, #30 TAB Prov:ZAINAB CARNES 08/20/24 Acetaminophen (Tylenol 8 Hour Arthritis) 650 Mg Tab, 650 MG PO TID, #30 TAB Prov:HILARY MENDES 08/18/24 Promethazine-Dm (Promethazine Dm 6.25-15 mg/5Ml) 1 Ochoa Ochoa, 10 OCHOA PO TID, #180 ML Prov:HILARY MENDES 03/18/24 Prednisone (Prednisone) 20 Mg Tab, 60 MG PO DAILY for 5 Days, #15 TAB Prov:HILARY MENDES 03/18/24 Levofloxacin Hemihydrate (LEVAQUIN 500 MG) 500 Mg Tab, 1 TAB PO DAILY, #10 TAB Prov:HILARY MENDES 03/18/24 Information Source: Patient Mode of Arrival: Ambulatory Location: Right Extremity Location: Hand Timing: Days Prehospital treatment: None Severity: Moderate Able to Move Extremity: Yes Bear Weight: Fully Pain: Moderate Mechanism: Blunt Trauma Circumstances: Sporting Onset of Symptoms: After Trauma Symptoms: Swelling, Pain DVT Risk Factors: NONE Last Tetanus: UTD Associated signs and symptoms: Hand pain Past Medical History PAST MEDICAL HISTORY: Anxiety, Arthritis, COPD, Depression, DM Surgical History: Denies all surgeries Family History Family History: Reviewed,noncontributory to illness, Unknown Social History Smoker: Non-Smoker Alcohol: Denies ETOH Use Drugs: Denies Drug Use Lives In: Home Constitutional: denies: chills, diaphoresis, fatigue, fever, malaise, sweats, weakness, others EENTM: denies: blurred vision, double vision, ear bleeding, ear discharge, ear drainage, ear pain, ear ringing, eye pain, eye redness, hearing loss, mouth pain, mouth swelling, nasal discharge, nose bleeding, nose congestion, nose pain, photophobia, tearing, throat pain, throat swelling, voice changes, others Respiratory: denies: cough, hemoptysis, orthopnea, SOB at rest, shortness of breath, SOB with excertion, stridor, wheezing, others Cardiovascular: denies: chest pain, dizzy spells, diaphoresis, Dyspnea on exert ion, edema, irregular heart beat, left arm pain, lightheadedness, palpitations, PND, syncope, others Gastrointestinal: denies: abdomen distended, abdominal pain, blood streaked bowels, constipated, diarrhea, dysphagia, difficulty swallowing, hematemesis, melena, nausea, poor appetite, poor fluid intake, rectal bleeding, rectal pain, vomiting, others Genitourinary: denies: burning, dysuria, flank pain, frequency, hematuria, incontinence, penile discharge, penile sore, pain, testicle pain, testicle swelling, urgency, others Neurological: denies: dizziness, fainting, headache, left sided numbness, left sided weakness, numbness, paresthesia, pre-existing deficit, right sided numbness, right sided weakness, seizure, speech problems, tingling, tremors, weakness, others Musculoskeletal: reports: joint pain, others (RT HAND PAIN); denies: back pain, gout, joint swelling, muscle pain, muscle stiffness, neck pain Integumetry: reports: bruises (RIGHT DORSAL HAND ); denies: change in color, change in hair/nails, dryness, laceration, lesions, lumps, rash, wounds, others Allergic/Immunocompromised: denies: Difficulty Healing, Frequent Infections, Hives, Itching, others Hematologic/Lymphatic: denies: anemia, blood clots, easy bleeding, easy bruising, swollen glands, others Endocrine: denies: excessive hunger, excessive sweating, excessive thirst, excessive urination, flushing, intolerance to cold, intolerance to heat, unexplained weight gain, unexplained weight loss, others Psychiatric: denies: anxiety, bipolar disorder, depression, hopeless, panic disorder, schizophrenia, sleepless, suicidal, others All Other Systems: Reviewed and Negative Physical Exam General Appearance: No Apparent Distress, Obese HEENT: Normal ENT Inspection, PERRL/EOMI, Pharynx Normal, TMs Normal Neck: Full Range of Motion, Non-Tender, Normal, Normal Inspection Respiratory: Chest Non-Tender, Lungs Clear, No Accessory Muscle Use, No Respiratory Distress, Normal Breath Sounds Cardiovascular: No Edema, No JVD, No Murmur, No Gallop, Normal Peripheral Pulses, Regular Rate/Rhythm Breast Exam: Deferred Gastrointestinal: No Organomegaly, Non Tender, No Pulsatile Mass, Normal Bowel Sounds, Soft Genitalia: Deferred Pelvic: Deferred Rectal: Deferred Extremities: No calf tenderness, Normal capillary refill, Normal range of motion, No pedal edema, Tender (AND MILD SWELLING AND CONTUSION ON RIGHT DORSAL HAND, NO BONY TENDERNESS AND DEFORMITY. ) Musculoskeletal : Apperance: Normal Neurologic: Alert, pump stitcher II-XII nml as Tested, No Motor Deficits, Normal Affect, Normal Mood, No Sensory Deficits Cerebellar Function: Normal Reflexes: Normal Skin: Bruises (RIGHT DORSAL HAND, NO OPEN WOUND AND DEFORMITY. ), Dry, Normal Color, Warm Peripheral Pulses: 2+ carotid (R), 2+ carotid (L), 2+ Radial (R), 2+ Radial (L) Lymphatic: No Adenopathy Was a procedure done? Was a procedure done?: No Differential Diagnosis EXT Differential Diagnosis: Fracture, Sprain, Contusion, Strain, Bursitis X-Ray, Labs, Meds, VS Vital Signs Date Time Temp Pulse Resp B/P (MAP) Pulse Ox O2 Delivery O2 Flow Rate FiO2 01/13/25 12:50 110 18 96 Room Air 01/13/25 12:50 98.3 110 18 110/52 (71) 96 98.3 01/13/25 12:25 98.3 110 18 110/52 (71) 96 98.3 X-Ray, Labs, Meds, VS Comment EXTERNAL MEDICAL RECORDS REVIEWED: [NONE] INDEPENDENT HISTORIANS: [NONE] SOCIAL DETERMINANTS OF HEALTH: [NONE] LABS ORDERED: NONE REVIEWED AND INTERPRETED RESULTS: RT HAND XR INTERPRETED BY ME. NO ACUTE FINDINGS. NO FRACTURES OR DISLOCATION. PENDING RADIOLOGIST REPORT. IMAGING ORDERED: RT HAND XR TREATMENTS ORDERED: NONE PROCEDURES PERFORMED: NONE CRITICAL CARE TIME: NONE I HAVE DISCUSSED THE PATIENT WITH THE ATTENDING PHYSICIAN DR. LOVE AND HE AGREES WITH THE PATIENT'S PLAN OF CARE AND DISPOSITION. BASED ON HISTORY OF PRESENT ILLNESS, AND PHYSICAL EXAM, PATIENT WILL BE DISCHARGED HOME. DISCUSSED PLAN FOR DISCHARGE HOME WITH RX IBUPROFEN. MEDICATION WARNINGS GIVEN. SHARED DECISION MAKING: DISCUSSED WITH PATIENT THAT THEIR WORKUP WAS NORMAL. PATIENT INSTRUCTED TO FOLLOW UP WITH PRIMARY CARE PROVIDER IN 1-2 DAYS FOR RE- EVALUATION OF SYMPTOMS. PATIENT VERBALIZES UNDERSTANDING TO RETURN TO ED FOR NEW OR WORSENING SYMPTOMS OR IF FOLLOW UP WITH PCP CANNOT BE OBTAINED. PATIENT FEELS COMFORTABLE GOING HOME AT THIS TIME. ALL QUESTIONS ADDRESSED AT TIME OF DISCHARGE. Time of 1ST Reevaluation: 13:24 Reevaluation 1ST: Improved Patient Education/Counseling: Diagnosis, Treatment, Need For Follow Up Family Education/Counseling: Diagnosis, Treatment, No Family Present Medical Screening: No EMC Exist At This Time Departure 1 Departure Time of Disposition: 13:24 Impression: Primary Impression: Contusion of right hand Qualified Codes: S60.221A - Contusion of right hand, initial encounter Disposition: HOME / SELF CARE / HOMELESS Condition: Stable Additional Instructions: FOLLOW-UP WITH PCP IN 1 TO 2 DAYS. TAKE MEDICATIONS PRESCRIBED. RETURN TO ED FOR ANY NEW OR WORSENING SYMPTOMS. e-Prescriptions Ibuprofen (Ibuprofen) 800 Mg Tab 1 TAB PO TID, #30 TAB Prov: HILARY MENDES 01/13/25 Discharged With: Self Critical Care Note Critical Care Time?: No Stability Stability form required: No Heart Score Heart Score: Heart Score Response (Comments) Value History N/A 0 EKG N/A 0 Age N/A 0 Risk Factors N/A 0 Troponin N/A 0 Total 0 I personally scribed for HILARY MENDES ([email or web address]) on 01/13/25 at 13:07. Electronically submitted by Skyler Davalos ([email or web address]). I personally scribed for HILARY MENDES ([email or web address]) on 01/13/25 at 13:18. Electronically submitted by Skyler Davalos ([email or web address]). HILARY MENDES January 13, 2025 13:07
[2025-01-13] MEDS ORDERED: IBUP-1456 PO (13:21)
--- NOTE | 2025-01-13 13:39 | DVH ---
EXAM: XY R HAND 3 VIEW XRAY CLINICAL HISTORY: INJURY COMPARISON: XY R HAND 3 VIEW XRAY on DOS: 08/18/24 TECHNIQUE: XY R HAND 3 VIEW XRAY Findings/Impression: 3 views of the right hand. There is no evidence of an acute fracture, dislocation, blastic, or lytic lesions. No radiopaque foreign bodies. Mild soft tissue edema.
== END 2025-01-13 13:20 | disposition home or self-care (01) ==
LOC: ER 12:14
DX: S60.221A Contusion of right hand, initial encounter (principal); E11.9 Type 2 diabetes mellitus without complications; M19.90 Unspecified osteoarthritis, unspecified site; F32.A Depression, unspecified; F41.9 Anxiety disorder, unspecified; J44.9 Chronic obstructive pulmonary disease, unspecified; Z79.1 Long term (current) use of non-steroidal anti-inflammatories (NSAID); Z79.52 Long term (current) use of systemic steroids; Z79.899 Other long term (current) drug therapy; W22.09XA Striking against other stationary object, initial encounter; Y93.89 Activity, other specified; Y92.89 Other specified places as the place of occurrence of the external cause; Y99.8 Other external cause status
CPT/HCPCS: 73130

== ENCOUNTER 2025-02-19 11:42 | Emergency (ER) | payer OTHER, MEDICAID ==
[~2025-02-19] VITALS: Ht 167.6 cm; Wt 111.9 kg
[~2025-02-19 11:42] MED LIST changes: +IBUP-1456 PO
[2025-02-19 12:20] VITALS: BP 121/57; PULSE 105; RESP 22; TEMP 97.4; O2SAT 95
--- NOTE | 2025-02-19 13:15 | ED.PDOC ---
History of Present Illness HPI Comments 59 year old male with a Hx of of COPD and DM presents to the ED for the c/c of Right Lower paraspinal Back Pain. Pt states that he was at home earlier today moving a heavy fridge when he over strained and has had pain since. Pt notes that he has no alleviating factors but has a worsening factor of movement. Denies history of chronic steroid use or history of osteoporosis Denies any history of cancer Denies fevers chills night sweats nausea vomiting unintentional weight loss Denies IV drug use history of HIV/TB Denies abdominal "tearing" pain Denies syncope Denies urinary incontinence or urinary changes Denies numbness tingling of the groin or inner thigh Denies previous back procedure or surgery Chief Complaint: Back Pain Time Seen by MD: 13:06 Primary Care Provider: TRE Leung Notes: Nurses Notes, Medications, Allergies Allergies: Coded Allergies: NO KNOWN ALLERGIES (Unverified , 03/18/24) Home Meds Active Scripts Naproxen (Naproxen) 500 Mg Tab, 500 MG PO BIDPC for 10 Days, #20 TAB 0 Refills Prov:BRENDA VALLES [employer] 02/19/25 Methocarbamol (Methocarbamol) 500 Mg Tab, 500 MG PO Q8HP PRN for 10 Days, #30 TAB 0 Refills Prov:BRENDA VALLES NP 02/19/25 Ibuprofen (Ibuprofen) 800 Mg Tab, 1 TAB PO TID, #30 TAB Prov:HILARY MENDES 01/13/25 Clindamycin Hcl (Clindamycin Hcl) 300 Mg Cap, 1 CAP PO BID for 7 Days, #14 CAP Prov:NICOLE MCKNIGHT MD 09/08/24 Naproxen (Naproxen) 500 Mg Tab, 500 MG PO BID, #30 TAB Prov:HILARY MENDES 08/26/24 Ibuprofen (Ibuprofen) 600 Mg Tab, 1 TAB PO TID, #30 TAB Prov:ZAINAB CARNES PAC 08/20/24 Acetaminophen (Tylenol 8 Hour Arthritis) 650 Mg Tab, 650 MG PO TID, #30 TAB Prov:HILARY MENDES 08/18/24 Promethazine-Dm (Promethazine Dm 6.25-15 mg/5Ml) 1 Ochoa Ochoa, 10 OCHOA PO TID, #180 ML Prov:HILARY MENDES 03/18/24 Prednisone (Prednisone) 20 Mg Tab, 60 MG PO DAILY for 5 Days, #15 TAB Prov:HILARY MENDES 03/18/24 Levofloxacin Hemihydrate (LEVAQUIN 500 MG) 500 Mg Tab, 1 TAB PO DAILY, #10 TAB Prov:HILARY MENDES 03/18/24 Information Source: Patient Mode of Arrival: Ambulatory Severity: Moderate Timing: Days Duration: Since onset, Days Prehospital treatment: None Past Medical History PAST MEDICAL HISTORY: Anxiety, Arthritis, COPD, Depression, DM Surgical History: Denies all surgeries Family History Family History: Reviewed,noncontributory to illness, Unknown Social History Smoker: Non-Smoker Alcohol: Denies ETOH Use Drugs: Denies Drug Use Lives In: Home Constitutional: denies: chills, diaphoresis, fatigue, fever, malaise, sweats, weakness, others EENTM: denies: blurred vision, double vision, ear bleeding, ear discharge, ear drainage, ear pain, ear ringing, eye pain, eye redness, hearing loss, mouth pain, mouth swelling, nasal discharge, nose bleeding, nose congestion, nose pain, photophobia, tearing, throat pain, throat swelling, voice changes, others Respiratory: denies: cough, hemoptysis, orthopnea, SOB at rest, shortness of breath, SOB with excertion, stridor, wheezing, others Cardiovascular: denies: chest pain, dizzy spells, diaphoresis, Dyspnea on exertion, edema, irregular heart beat, left arm pain, lightheadedness, palpitations, PND, syncope, others Gastrointestinal: denies: abdomen distended, abdominal pain, blood streaked bowels, constipated, diarrhea, dysphagia, difficulty swallowing, hematemesis, melena, nausea, poor appetite, poor fluid intake, rectal bleeding, rectal pain, vomiting, others Genitourinary: denies: burning, dysuria, flank pain, frequency, hematuria, incontinence, penile discharge, penile sore, pain, testicle pain, testicle swelling, urgency, others Neurological: denies: dizziness, fainting, headache, left sided numbness, left sided weakness, numbness, paresthesia, pre-existing deficit, right sided numbness, right sided weakness, seizure, speech problems, tingling, tremors, weakness, others Musculoskeletal: reports: back pain; denies: gout, joint pain, joint swelling, muscle pain, muscle stiffness, neck pain, others Integumetry: denies: bruises, change in color, change in hair/nails, dryness, laceration, lesions, lumps, rash, wounds, others Allergic/Immunocompromised: denies: Difficulty Healing, Frequent Infections, Hives, Itching, others Hematologic/Lymphatic: denies: anemia, blood clots, easy bleeding, easy bruising, swollen glands, others Endocrine: denies: excessive hunger, excessive sweating, excessive thirst, excessive urination, flushing, intolerance to cold, intolerance to heat, unexplained weight gain, unexplained weight loss, others Psychiatric: denies: anxiety, bipolar disorder, depression, hopeless, panic disorder, schizophrenia, sleepless, suicidal, others All Other Systems: Reviewed and Negative Physical Exam General Appearance: Moderate Distress, Normal, Obese HEENT: Normal ENT Inspection, Pharynx Normal, TMs Normal Neck: Full Range of Motion, Non-Tender, Normal Respiratory: Chest Non-Tender, Lungs Clear, No Accessory Muscle Use, No Respiratory Distress, Normal Breath Sounds Cardiovascular: No Edema, No JVD, No Murmur, Normal Peripheral Pulses, Regular Rate/Rhythm Breast Exam: Deferred Gastrointestinal: Non Tender, No Pulsatile Mass, Normal Bowel Sounds, Soft Genitalia: Deferred Pelvic: Deferred Rectal: Deferred Extremities: No calf tenderness, Normal capillary refill, Normal inspection, Normal range of motion, Non-tender, No pedal edema Musculoskeletal : Location: Right Extremity Location: Back (Right lower para spinal back pain, no soft tissue swelling, open wounds, no bony step offs on palpitation, Neural vascual sensation intact) Apperance: Normal Neurologic: Alert, No Motor Deficits, Normal Mood Cerebellar Function: Normal Reflexes: Normal Skin: Dry, Normal Color, Warm Lymphatic: No Adenopathy Was a procedure done? Was a procedure done?: No Differential Dx Considerations may include: strain X-Ray, Labs, Meds, VS Vital Signs Date Time Temp Pulse Resp B/P (MAP) Pulse Ox O2 Delivery O2 Flow Rate FiO2 02/19/25 12:20 97.4 105 22 121/57 (78) 95 97.4 02/19/25 12:20 105 22 95 Room Air 02/19/25 11:49 97.4 105 22 121/57 (01) 95 97.4 Current Medications Medications (Trade) Dose Ordered Sig/Jony Route Start Time Stop Time Status Last Admin Ketorolac Tromethamine (Toradol Injection) 60 mg ONCE ONCE IM 02/19/25 13:45 02/19/25 13:46 DC 02/19/25 13:51 X-Ray, Labs, Meds, VS Comment 59 year old male with a Hx of of COPD and DM presents to the ED for the c/c of Right Lower paraspinal Back Pain. Patient arrives alert and oriented, ABC's intact, afebrile, vital signs stable, saturating well in room air Presentation most consistent with nonemergent musculoskeletal etiology versus nonemergent disc herniation. ED workup: Defer imaging and lab work for outpatient follow up at this time Disposition: Discharge. Strict return precautions discussed with the patient with full understanding Supportive care advised (rest, ice, heat, NSAIDs, stretching exercises) Massage muscles with cold pack or ice for 20 minutes 4 times per day. Usually most useful if there is swelling during the first 48 hours Heating pad on the most painful area for 20 minutes to relieve muscle spasm Sleep and the most comfortable sleeping position (usually on the side with knees bent) Light stretching, no strenuous activity, avoid frequent bending, avoid carrying heavy objects Discussed possible benefits of yoga and acupuncture Additional MDM Review of External, Non-ED records: External records reviewed. Discussion with independent historian (EMS, family) history obtained from the patient/parents (if applicable) at bedside Chronic conditions affecting care: None Social determinants of health affecting care: None Consideration of admission (observation or admission): I considered escalation of care to admission for this patient, however given the reassuring workup, the patient is safe for outpatient management. Discussion with the Radiology: No Tests considered but not performed: Prescription medication considered but not given: Time of 1ST Reevaluation: 13:06 Reevaluation 1ST: Unchanged Patient Education/Counseling: Diagnosis, Treatment Family Education/Counseling: No Family Present Departure 1 Departure Time of Disposition: 13:48 Impression: Primary Impression: Low back strain Qualified Codes: S39.012A - Strain of muscle, fascia and tendon of lower back, initial encounter Disposition: HOME / SELF CARE / HOMELESS Condition: Fair e-Prescriptions Naproxen (Naproxen) 500 Mg Tab 500 MG PO BIDPC for 10 Days, #20 TAB 0 Refills Prov: HAI,BRENDA F [employer]ERY ADVOCATE 02/19/25 Methocarbamol (Methocarbamol) 500 Mg Tab 500 MG PO Q8HP PRN for 10 Days, #30 TAB 0 Refills Prov: BRENDA VALLES NP 02/19/25 Critical Care Note Critical Care Time?: No Stability Stability form required: No Heart Score Heart Score: Heart Score Response (Comments) Value History N/A 0 EKG N/A 0 Age N/A 0 Risk Factors N/A 0 Troponin N/A 0 Total 0 I personally scribed for BRENDA VALLES NP ([email or web address]) on 02/19/25 at 13:15. El ectronically submitted by Gerald Montoya ([email or web address]). BRENDA VALLES NP Feb 19, 2025 13:15
[2025-02-19] MEDS ORDERED: NAPR-746 PO (13:49)
[2025-02-19] MEDS ORDERED: METH-1181 PO (13:49)
[2025-02-19] MEDS: KETOROLAC TROMETH 60MG/2ML VIAL IM ONE (13:51)
== END 2025-02-19 13:52 | disposition home or self-care (01) ==
LOC: ER 11:42
DX: S39.012A Strain of muscle, fascia and tendon of lower back, initial encounter (principal); E11.9 Type 2 diabetes mellitus without complications; J44.9 Chronic obstructive pulmonary disease, unspecified; M19.90 Unspecified osteoarthritis, unspecified site; F41.9 Anxiety disorder, unspecified; X50.0XXA Overexertion from strenuous movement or load, initial encounter; Y93.89 Activity, other specified; Y92.89 Other specified places as the place of occurrence of the external cause; Y99.8 Other external cause status
CPT/HCPCS: 96372; 99283; J1885

== ENCOUNTER 2025-03-17 16:15 | Inpatient (IN) | payer OTHER, MEDICAID ==
[~2025-03-17] VITALS: Ht 167.6 cm; Wt 119.3 kg
[~2025-03-17 16:15] MED LIST changes: +METH-1181 PO
--- NOTE | 2025-03-17 16:44 | ECG ---
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
--- NOTE | 2025-03-17 18:43 | ED.PDOC ---
SOB-HPI HPI Comments 59 year old male came to ER due to shortness of breath. Patient does have history of hypertension, diabetes, arthritis and COPD. He is not on any home oxygen. For the past 2 days, he has been having cough, congestion and shortness of breath. Noted also to have neck "pressure" and dizziness. Patient also complaining of bilateral knee pain and is pending surgery for his left knee. He is saturating at 92% on room air upon arrival. Denies any acute chest pain or fever Chief Complaint: Shortness of Breath Time Seen by MD: 18:42 Primary Care Provider: TRE Reviewed notes: Nurses Notes Information Source: Patient Mode of Arrival: Ambulatory Severity: Moderate Timing: Days Duration: Intermittent Context: With Light Exertion PE Risk Factors: None History of: COPD Prehospital treatment: Oxygen Associated Signs and Symptoms: Cough, Nasal Congestion, Sore Throat If cough with SOB: Non-Productive Review of Systems REVIEW OF SYSTEMS: General: No fever, no chills, or fatigue HEENT: No sore throat, no earache, no congestion, no neck pain. Cardiac: No chest pain. No palpitations. Lungs: (+) shortness of breath, (+) cough. GI: No nausea, no vomiting, no diarrhea, no constipation, no abdominal pain : No dysuria, frequency, or urgency. No hematuria. Musculoskeletal: (+) joint pain , no joint swelling, no extremity edema. Skin: No rash, no itching. Neuro: No headache, no dizziness, no weakness Vital Signs Vital Signs Date Time Temp Pulse Resp B/P (MAP) Pulse Ox O2 Delivery O2 Flow Rate FiO2 03/17/25 21:22 94 Nasal Cannula* 2 28 03/17/25 21:17 99.0 105 20 109/54 99.0 Physical Exam PHYSICAL EXAM: General: Awake, alert and oriented. No acute distress. Skin: Skin in warm, dry and intact. Appropriate color for ethnicity. HEENT: The head is normocephalic and atraumatic. Conjunctivae are clear without exudates or hemorrhage. Sclera is non-icteric. EOM are intact. No signs of nystagmus. Eyelids are normal in appearance without swelling or lesions. Oral mucosa is pink and moist Neck: No JVD. Cardiac: Heart rate and rhythm are normal. No murmurs, gallops, or rubs are auscultated. Respiratory: No signs of respiratory distress. Positive rales and wheezing Abdominal: Abdomen is soft, non-tender distention, no guarding or rigidity. Bowel sounds are present and normoactive in all four quadrants. Extremities: Mild left knee swelling and tenderness Neurological: The patient is awake, alert and oriented to person, place, and time with normal speech. Speech is clear. There is no facial asymmetry. Normal gait Psychiatric: Appropriate mood and affect. Good judgement and insight. Past Medical History PAST MEDICAL HISTORY: Anxiety, Arthritis, COPD, Depression, DM, High Lipids, HTN Surgical History: Denies all surgeries Family History Family History: Reviewed,noncontributory to illness, Unknown Social History Smoker: Non-Smoker Alcohol: Denies ETOH Use Drugs: Denies Drug Use Lives In: Home EKG EKG : Pulse Rate (adult): 108 Cardiac Rhythm: ST Comments Left posterior fascicular block, no STEMI Was a procedure done? Was a procedure done?: No Differential Dx Differential Diagnosis: Anxiety, Asthma, Bronchitis, CHF, COPD, Myocardial infarction, Pneumonia, Pulmonary Embolism, Respiratory Distress, URI, Other X-Ray, Labs, Meds, VS Vital Signs Date Time Temp Pulse Resp B/P (MAP) Pulse Ox O2 Delivery O2 Flow Rate FiO2 03/17/25 21:22 94 Nasal Cannula* 2 28 03/17/25 21:21 94 Nasal Cannula 2.0 03/17/25 21:17 99.0 105 20 109/54 94 2.0 99.0 03/17/25 19:58 98.1 105 18 109/54 (72) 94 98.1 03/17/25 19:58 105 18 94 Nasal Cannula 2.0 03/17/25 18:51 20 96 Nasal Cannula* 3 32 03/17/25 18:44 108 03/17/25 16:42 97.9 112 22 147/70 (95) 92 97.9 03/17/25 16:39 108 Lab Test 03/17/25 18:47 Range/Units White Blood Count 10.1 4.4-10.8 10^3/uL Red Blood Count 5.59 4.5-5.90 10^6/uL Hemoglobin 17.3 13.5-17.5 g/dL Hematocrit 51.1 41.0-53.0 % Mean Corpuscular Volume 91.4 80.0-100.0 fL Mean Corpuscular Hemoglobin 30.9 28.0-32.0 pg Mean Corpuscular Hemoglobin Concent 33.8 32.0-36.0 g/dL Red Cell Distribution Width 14.7 H 11.8-14.3 % Platelet Count 283 140-450 10^3/uL Mean Platelet Volume 8.3 6.9-10.8 fL Neutrophils (%) (Auto) 60.8 37.0-80.0 % Lymphocytes (%) (Auto) 25.8 10.0-50.0 % Monocytes (%) (Auto) 10.2 0.0-12.0 % Eosinophils (%) (Auto) 2.4 0.0-7.0 % Basophils (%) (Auto) 0.8 0.0-2.0 % Neutrophils # (Auto) 6.2 1.6-8.6 10 ^3/uL Lymphocytes # (Auto) 2.6 0.4-5.4 10 ^3/uL Monocytes # (Auto) 1.0 0-1.3 10 ^3/uL Eosinophils # (Auto) 0.2 0-0.8 10 ^3/uL Basophils # (Auto) 0.1 0-0.2 10 ^3/uL Nucleated Red Blood Cells 0.1 % Sodium Level 138 136-145 mmol/L Potassium Level 4.7 3.5-5.1 mmol/L Chloride Level 107 98-107 mmol/L Carbon Dioxide Level 22 20-31 mmol/L Anion Gap 9 5-15 Blood Urea Nitrogen 19 9-23 mg/dL Creatinine 1.11 0.700-1.30 mg/dL Glomerular Filtration Rate Calc 77 >90 mL/min BUN/Creatinine Ratio 17.1 10.0-20.0 Serum Glucose 170 H 74-106 mg/dL Hemoglobin A1c 8.0 H <5.7 % A1C Calcium Level 9.0 8.7-10.4 mg/dL Troponin I High Sensitivity 4 </=54 ng/L B-Type Natriuretic Peptide 3.70 0-100 pg/mL Current Medications Medications (Trade) Dose Ordered Sig/Jony Route Start Time Stop Time Status Last Admin Ketorolac Tromethamine (Toradol Injection) 30 mg ONCE ONCE IM 03/17/25 20:15 03/17/25 20:44 DC 03/17/25 23:22 Methylprednisolone Sodium Succinate (Solu Medrol) 80 mg ONCE ONCE IV 03/17/25 20:30 03/17/25 20:31 DC 03/17/25 23:23 Furosemide (Lasix Injection) 20 mg ONCE ONCE IV 03/17/25 20:30 03/17/25 20:31 DC 03/17/25 23:22 Acetaminophen/ Hydrocodone Bitart ([place] 5/325MG Tab) 1 tab Q4HP PRN PO 03/17/25 20:45 03/18/25 17:32 Time of 1ST Reevaluation: 18:39 Reevaluation 1ST: Unchanged Patient Education/Counseling: Prognosis, Need For Follow Up Family Education/Counseling: No Family Present SEPSIS Sepsis Screen Date sepsis recognized/suspect: Mar 17, 2025 Time Sepsis recognized/suspect: 1632 Recent Procedure: No On Antibiotic Therapy: No Respiratory Rate >20: No Heart Rate >90: Yes Temp<36 C (96.8 F) or >38.3 C: No SBP <90 or MAP <65 mmHG: No New Acute Mental Status Change: No Is the patient on CPAP, BIPAP,: No Physician Orders Electrocardigram (03/17/25 18:36) Chest Xray 1 View (03/17/25 18:36) Furosemide Injection (Lasix Injection) (03/18/25 10:00) Famotidine Injection (Pepcid Injection) (03/17/25 22:00) Allergies (03/17/25 20:45) Code Status (03/17/25 20:45) Oxygen Per Hour (03/17/25 20:45) Hydrocodone-Acet 5/325mg Tab ([place] 5/32 (03/17/25 20:45) Ondansetron Hcl (Zofran) (03/17/25 20:45) Docusate Sodium Capsule (Colace Capsule) (03/17/25 20:45) Condition: Serious (03/17/25 20:45) Acetaminophen Tablet (Tylenol Tablet) (03/17/25 20:45) Bedrest With Bathroom Privileg (03/17/25 20:45) Sequential Compression Device (03/17/25 ) Vital Signs Date Time Temp Pulse Resp B/P (MAP) Pulse Ox O2 Delivery O2 Flow Rate FiO2 03/17/25 21:22 94 Nasal Cannula* 2 28 03/17/25 21:21 94 Nasal Cannula 2.0 03/17/25 21:17 99.0 105 20 109/54 94 2.0 99.0 03/17/25 19:58 98.1 105 18 109/54 (72) 94 98.1 03/17/25 19:58 105 18 94 Nasal Cannula 2.0 03/17/25 18:51 20 96 Nasal Cannula* 3 32 03/17/25 18:44 108 03/17/25 16:42 97.9 112 22 147/70 (95) 92 97.9 03/17/25 16:39 108 Laboratory Tests Test 03/17/25 18:47 White Blood Count 10.1 10^3/uL (4.4-10.8) Departure 1 Departure Time of Disposition: 20:22 Impression: Primary Impression: COPD exacerbation Disposition: ADMITTED INPATIENT Condition: Stable Comments 59-year-old male with COPD exacerbation Treatment initiated in the ED Admit dispo Extensive evaluation was performed in attempt to identify or rule out: (See differential diagnosis section) The following tests were ordered, and results were reviewed by me and discussed with patient: (See diagnostic results section) The following test were independently interpreted by me: EKG I reviewed and agreed with the following test results read by other providers: Chest x-ray I reviewed the following notes from the pt's past medical encounters: N/A Additional information was gathered from interviewing the following independent historians: N/A Discussion of management or test interpretation with external physician/other qualified health transitional care liaison: N/A Addressed one or more chronic illnesses with severe exacerbation, progression, or side effects of treatment: COPD exacerbation Decision regarding hospitalization or escalation of hospital level of care: Risk and benefits of admission for further treatment of patient's condition was considered. Due to patient's current clinical condition, high risk of decline and poor outcome if discharged and need for further inpatient management and monitoring, patient will be admitted to the hospital. Discussed with patient. Drug therapy requiring intensive monitoring for toxicity: IV Solu-Medrol, IV furosemide Parenteral controlled substances: N/A Decision regarding elective major surgery with identified patient or procedure risk factors: N/A Decision regarding emergency major surgery: N/A Decision not to resuscitate or to de-escalate care because of poor prognosis: N/A Diagnosis or treatment significantly limited by social determinants of health: N/A Critical Care Note Critical Care Time?: No Stability Stability form required: No Heart Score Heart Score: Heart Score Response (Comments) Value History Slightly Suspicious 0 EKG Repolarization Disturb 1 Age 45-64 1 Risk Factors 1 or 2 risk factors 1 Troponin Normal limit 0 Total 3 I personally scribed for BRITTNEY GATES MD ([email or web address]) on 03/17/25 at 18:43. Electronically submitted by Carlos A Bullock ([email or web address]). I personally scribed for BRITTNEY GATES MD ([email or web address]) on 03/17/25 at 18:44. Electronically submitted by Carlos A Bullock ([email or web address]). I personally scribed for BRITTNEY GATES MD ([email or web address]) on 03/17/25 at 19:35. Electronically submitted by Carlos A Bullock ([email or web address]). I personally scribed for BRITTNEY GATES MD ([email or web address]) on 03/17/25 at 23:11. Electronically submitted by Carlos A Bullock ([email or web address]). BRITTNEY GATES MD Mar 17, 2025 18:43
[2025-03-17] MEDS: ALBUTEROL SULF 2.5 MG/0.5ML(0.5%) NEB SOLN NEB ONE (18:50)
[2025-03-17] MEDS: IPRATROPIUM BROM 0.5 MG/2.5ML INH SOL NEB ONE (18:51)
[2025-03-17 18:57] LABS: Hematocrit 51.1 % (41.0-53.0); Hemoglobin 17.3 g/dL (13.5-17.5); Mean Corpuscular Hemoglobin 30.9 pg (28.0-32.0); Mean Corpuscular Volume 91.4 fL (80.0-100.0); Nucleated Red Blood Cells % 0.1 %
[2025-03-17 19:08] LABS: Chloride 107 mmol/L (98-107); Sodium 138 mmol/L (136-145)
[2025-03-17 19:09] LABS: Anion Gap 9 (5-15); Carbon Dioxide 22 mmol/L (20-31)
[2025-03-17 19:10] LABS: Calcium 9.0 mg/dL (8.7-10.4)
[2025-03-17 19:16] LABS: Glucose 170 mg/dL (74-106); Potassium 4.7 mmol/L (3.5-5.1)
--- NOTE | 2025-03-17 19:43 | DVH ---
CHEST RADIOGRAPH Indication: Shortness of breath Technique: Single frontal view of the chest was obtained Comparison: XY CHEST PORTABLE on DOS: 10/21/24, XY CHEST PORTABLE on DOS: 03/18/24 FINDINGS: Lines and Tubes: None Lungs: No focal consolidation. Mild interstitial prominence. Linear densities of the bilateral lung bases. Pleura: No effusion. No pneumothorax. Cardiomediastinal contours: Unremarkable Bones: No acute osseous abnormality. IMPRESSION: Pulmonary vascular congestion with bibasilar atelectasis.
[2025-03-17 19:50] LABS: BUN/Creatinine Ratio 17.1 (10.0-20.0); Blood Urea Nitrogen 19 mg/dL (9-23)
[2025-03-17] MEDS ORDERED: ALBUTEROL SULF 2.5 MG/0.5ML(0.5%) NEB SOLN NEB PRN (20:45)
[2025-03-17] MEDS ORDERED: ONDANSETRON HCL 4 MG/2 ML VIAL IV PRN (20:45)
[2025-03-17] MEDS ORDERED: ACETAMINOPHEN 325 MG TAB PO PRN (20:45)
[2025-03-17] MEDS ORDERED: DOCUSATE SOD 100 MG CAP PO PRN (20:45)
[2025-03-17] MEDS ORDERED: IPRATROPIUM BROM 0.5 MG/2.5ML INH SOL NEB PRN (20:45)
[2025-03-17 21:17] VITALS: BP 109/54; PULSE 105; RESP 20; TEMP 99; O2SAT 94
[2025-03-17 21:21] VITALS: O2SAT 94
[2025-03-17 21:22] VITALS: O2SAT 94
--- NOTE | 2025-03-17 21:35 | DVHHP2 ---
History of Present Illness Reason for Visit: COPD with acute exacerbation History of Present Illness The patient is a 59-year-old male with multiple past medical history including anxiety, COPD, depression, diabetes mellitus, and hypertension who presented to [facility] ED with complaint of shortness of breaths. Patient reports he has been experiencing shortness of breaths associated with cough, congestion, increased work of breathing, generalized body pain, getting worse today that prompted this visit. Patient was seen and evaluated in the ED, laboratory data shows WBC 10.1, platelets 283, sodium 138, potassium 4.7, BUN 19, creatinine 1.11, glucose 170, calcium 9.0, troponin 4, blood pressure 109/54, heart rate 104, temperature 98.1 F, O2 saturation 94% on oxygen. Chest x-ray revealing pulmonary vascular congestion with bibasilar atelectasis. Patient was given breathing treatment, started on IV Solu-Medrol, please see medication orders section in the computer. On my assessment, patient denied chest pain, no headache, no dizziness, currently on oxygen, no nausea, no v omiting, no fever, no chills. Patient was admitted for further evaluation and medical management. Past Medical History Anxiety, Arthritis, COPD, Depression, DM, High Lipids, HTN Past Surgical History Denies all surgeries Family History Reviewed, noncontributory to the management of this case. Past Social History The patient lives at home, denies smoking, alcohol or illicit drugs abuse. Review of Systems Constitutional: Yes: Weakness; No: Fever, Chills, Sweats, Malaise, Other Eyes: No: Pain, Vision change, Conjunctivae inflammation, Eyelid inflammation, Other, Redness ENT: No: Ear pain, Ear discharge, Nose pain, Nose discharge, Nose congestion, Mouth pain, Mouth swelling, Throat pain, Throat swelling, Other Respiratory: Cough, Shortness of breath, SOB with excertion, Other (SOB at rest); No: Dry, Wheezing, Hemoptysis, Pleuritic Pain, Sputum, Wheezing Cardiovascular: No: Chest Pain, Palpitations, Orthopnea, Paroxysmal Noc. Dyspnea, Edema, Lt Headedness, Other Gastrointestinal: No: Nausea, Vomiting, Abdominal Pain, Diarrhea, Constipation, Melena, Hematochezia, Other Genitourinary: No Dysuria, No Frequency, No Incontinence, No Hematuria, No Retention, No Other Musculoskeletal: other (Bilateral knee pain), shoulder pain; No: neck pain, arm pain, back pain, hand pain, leg pain, foot pain Skin: No: Rash, Lesions, Jaundice, Bruising, Other Neurological: No: Weakness, Numbness, Incoordination, Change in speech, Confusion, Seizures, Other Allergies: Coded Allergies: NO KNOWN ALLERGIES (Unverified , 03/18/24) Medications Current Medications Medications Dose Ordered Sig/Jony Route Start Time Stop Time Status Last Admin Dose Admin Furosemide 40 mg DAILY IV 03/18/25 10:00 Methylprednisolone Sodium Succinate 40 mg Q8HR IV 03/17/25 22:00 Famotidine 20 mg Q12HR IV 03/17/25 22:00 Albuterol 2.5 mg Q4HPRN PRN NEB 03/17/25 20:45 Ipratropium [place] 0.5 mg Q4HPRN PRN NEB 03/17/25 20:45 Sodium Chloride 1,000 ml @ 60 mls/hr [id number] IV 03/17/25 20:45 Acetaminophen/ Hydrocodone Bitart 1 tab Q4HP PRN PO 03/17/25 20:45 Ondansetron HCl 4 mg Q4HP PRN IV 03/17/25 20:45 Docusate Sodium 100 mg BIDPRN PRN PO 03/17/25 20:45 Acetaminophen 650 mg Q6HP PRN PO 03/17/25 20:45 Exam Vital Signs Vital Signs Date Time Temp Pulse Resp B/P (MAP) Pulse Ox O2 Delivery O2 Flow Rate FiO2 03/17/25 21:22 94 Nasal Cannula* 2 28 03/17/25 21:17 99.0 105 20 109/54 99.0 General Appearance: Alert, Oriented X3, Cooperative, No acute distress HEENT: Atraumatic, PERRLA, EOMI, Mucous membr. moist/pink Respiratory: Clear to auscultation, Normal air movement Cardiovascular: Regular rate, Normal S1, Normal S2, No murmurs Abdominal: Normal bowel sounds, Soft, No tenderness, No hepatospenomegaly, No masses Extremities: No clubbing, No cyanosis, No edema, Normal pulses, No tenderness/swelling Skin: No rashes, No breakdown, No significant lesion Neuro: Normal speech, Normal tone, Sensation intact, Cranial nerves 3-12 NL, Reflexes 2+, Other (Generalized weakness) Psych/Mental Status: Mental status NL, Mood NL Labs/Xrays Labs Test 03/17/25 18:47 Range/Units White Blood Count 10.1 4.4-10.8 10^3/uL Red Blood Count 5.59 4.5-5.90 10^6/uL Hemoglobin 17.3 13.5-17.5 g/dL Hematocrit 51.1 41.0-53.0 % Mean Corpuscular Volume 91.4 80.0-100.0 fL Mean Corpuscular Hemoglobin 30.9 28.0-32.0 pg Mean Corpuscular Hemoglobin Concent 33.8 32.0-36.0 g/dL Red Cell Distribution Width 14.7 H 11.8-14.3 % Platelet Count 283 140-450 10^3/uL Mean Platelet Volume 8.3 6.9-10.8 fL Neutrophils (%) (Auto) 60.8 37.0-80.0 % Lymphocytes (%) (Auto) 25.8 10.0-50.0 % Monocytes (%) (Auto) 10.2 0.0-12.0 % Eosinophils (%) (Auto) 2.4 0.0-7.0 % Basophils (%) (Auto) 0.8 0.0-2.0 % Neutrophils # (Auto) 6.2 1.6-8.6 10 ^3/uL Lymphocytes # (Auto) 2.6 0.4-5.4 10 ^3/uL Monocytes # (Auto) 1.0 0-1.3 10 ^3/uL Eosinophils # (Auto) 0.2 0-0.8 10 ^3/uL Basophils # (Auto) 0.1 0-0.2 10 ^3/uL Nucleated Red Blood Cells 0.1 % Sodium Level 138 136-145 mmol/L Potassium Level 4.7 3.5-5.1 mmol/L Chloride Level 107 98-107 mmol/L Carbon Dioxide Level 22 20-31 mmol/L Anion Gap 9 5-15 Blood Urea Nitrogen 19 9-23 mg/dL Creatinine 1.11 0.700-1.30 mg/dL Glomerular Filtration Rate Calc 77 >90 mL/min BUN/Creatinine Ratio 17.1 10.0-20.0 Serum Glucose 170 H 74-106 mg/dL Hemoglobin A1c 8.0 H <5.7 % A1C Calcium Level 9.0 8.7-10.4 mg/dL Troponin I High Sensitivity 4 </=54 ng/L B-Type Natriuretic Peptide 3.70 0-100 pg/mL PATIENT: APRIL CHAPARROT: [id number] UNIT: [id number] : 1965 LOC: ER ROOM / BED: / AGE / SEX: 59 / M ADM STATUS: REG ER SERVICE [id number] ORDERING PHYSICIAN: BRITTNEY GATES MD PROCEDURE(s): CXR1 - CHEST XRAY 1 VIEW REASON: Shortness of breath ORDER NUMBER(s): [id number], ACCESSION NUMBER(s): [id number] CHEST RADIOGRAPH Indication: Shortness of breath Technique: Single frontal view of the chest was obtained Comparison: XY CHEST PORTABLE on DOS: 10/21/24, XY CHEST PORTABLE on DOS: 03/18/24 FINDINGS: Lines and Tubes: None Lungs: No focal consolidation. Mild interstitial prominence. Linear densities of the bilateral lung bases. Pleura: No effusion. No pneumothorax. Cardiomediastinal contours: Unremarkable Bones: No acute osseous abnormality. IMPRESSION: Pulmonary vascular congestion with bibasilar atelectasis. SEPSIS Sepsis Screen Date sepsis recognized/suspect: Mar 17, 2025 Time Sepsis recognized/suspect: 1632 Recent Procedure: No On Antibiotic Therapy: No Respiratory Rate >20: No Heart Rate >90: Yes Temp<36 C (96.8 F) or >38.3 C: No SBP <90 or MAP <65 mmHG: No New Acute Mental Status Change: No Is the patient on CPAP, BIPAP,: No Physician Orders Electrocardigram (03/17/25 18:36) Chest Xray 1 View (03/17/25 18:36) Furosemide Injection (Lasix Injection) (03/18/25 10:00) Methylprednisolone Sod Succ (Solu Medrol (03/17/25 22:00) Famotidine Injection (Pepcid Injection) (03/17/25 22:00) Albuterol Medneb (Ventolin Medneb) (03/17/25 20:45) Ipratropium Medneb (Atrovent Medneb) (03/17/25 20:45) Allergies (03/17/25 20:45) Code Status (03/17/25 20:45) Sodium Chloride 0.9% (03/17/25 20:45) Oxygen Per Hour (03/17/25 20:45) Hydrocodone-Acet 5/325mg Tab ([place] 32 (03/17/25 20:45) Ondansetron Hcl (Zofran) (03/17/25 20:45) Docusate Sodium Capsule (Colace Capsule) (03/17/25 20:45) Complete Blood Count (03/18/25 04:00) Comprehensive Metabolic Panel (03/18/25 04:00) Cardiac Diet-2gna,Lofat,Lochol (03/18/25 Breakfast) Condition: Serious (03/17/25 20:45) Acetaminophen Tablet (Tylenol Tablet) (03/17/25 20:45) Bedrest With Bathroom Privileg (03/17/25 20:45) Sequential Compression Device (03/17/25 ) Vital Signs Date Time Temp Pulse Resp B/P (MAP) Pulse Ox O2 Delivery O2 Flow Rate FiO2 03/17/25 21:22 94 Nasal Cannula* 2 28 03/17/25 21:21 94 Nasal Cannula 2.0 03/17/25 21:17 99.0 105 20 109/54 94 2.0 99.0 03/17/25 19:58 98.1 105 18 109/54 (72) 94 98.1 03/17/25 19:58 105 18 94 Nasal Cannula 2.0 03/17/25 18:51 20 96 Nasal Cannula* 3 32 03/17/25 18:44 108 03/17/25 16:42 97.9 112 22 147/70 (95) 92 97.9 03/17/25 16:39 108 Laboratory Tests Test 03/17/25 18:47 White Blood Count 10.1 10^3/uL (4.4-10.8) Medications Medications Dose Ordered Sig/Jony Route Start Time Stop Time Status Last Admin Dose Admin Albuterol 2.5 mg ONCE ONCE NEB 03/17/25 18:45 03/17/25 18:46 DC 03/17/25 18:50 2.5 MG Ipratropium [place] 0.5 mg ONCE ONCE NEB 03/17/25 18:45 03/17/25 18:46 DC 03/17/25 18:51 0.5 MG Assessment/Plan Assessment/Plan COPD with acute exacerbation Acute generalized body pain Generalized weakness Plan 1. Admit to telemetry unit 2. Breathing treatment 3. Pain control management 4. Management of fluids and electrolytes 5. Consultation for hospitalist 6. Diagnostic tests chest x-ray 7. DVT prophylaxis-on SCDs 8. Repeat labs CBC, CMP in a.m. 9. Continue with current medical management 10. Treatment plan discussed with patient and RN. Patient verbalized understanding. Plan discussed with: Patient, Other (RN) My Orders Orders - ANA ROCA DNP Procedure Category Date Status Time Furosemide Injection PHA 03/18/25 In Process (Lasix Injection) 10:00 Methylprednisolone PHA 03/17/25 In Process Sod Succ (Solu Medrol 22:00 Famotidine Injection PHA 03/17/25 In Process (Pepcid Injection) 22:00 Albuterol Medneb PHA 03/17/25 In Process (Ventolin Medneb) 20:45 Ipratropium Medneb PHA 03/17/25 In Process (Atrovent Medneb) 20:45 Allergies DREW 03/17/25 In Process 20:45 Code Status CODE 03/17/25 Transmitted 20:45 Sodium Chloride 0.9% PHA 03/17/25 In Process 20:45 Oxygen Per Hour RT 03/17/25 Transmitted 20:45 Hydrocodone-Acet PHA 03/17/25 In Process 5/325mg Tab ([place] 20:45 Ondansetron Hcl PHA 03/17/25 In Process (Zofran) 20:45 Docusate Sodium PHA 03/17/25 In Process Capsule (Colace 20:45 Complete Blood Count LAB 03/18/25 Verified 04:00 Comprehensive LAB 03/18/25 Verified Metabolic Panel 04:00 Cardiac DIET 03/18/25 Transmitted Diet-2gna,Lofat,Lochol Breakfast Condition: Serious DREW 03/17/25 In Process 20:45 Acetaminophen Tablet PHA 03/17/25 In Process (Tylenol Tablet) 20:45 Bedrest With Bathroom DREW 03/17/25 In Process Privileg 20:45 Sequential DREW 03/17/25 In Process Compression Device Problem List: (1) COPD with acute exacerbation (2) Acute generalized body pain (3) Generalized weakness Date of Service: Mar 17, 2025 Billing Provider: ANA ROCA DNP Common Visit Codes: [id number] INP/OBS CARE (HIGH) ANA ROCA DNP Mar 17, 2025 21:34
[2025-03-17] MEDS ORDERED: NITROGLYCERIN 0.4 MG SL TAB SL PRN (21:45)
[2025-03-17] MEDS ORDERED: MORPHINE SULFATE INJ 2 MG/ml SYRG IV PRN (21:45)
[2025-03-17] MEDS: SODIUM CHLORIDE 0.9% 1,000 ML IV SCH (21:51)
[2025-03-17] MEDS: methylPREDNISolone SOD SUCC 40 MG/ML VL IV SCH (23:00)
[2025-03-17] MEDS: ACETAMINOPHEN 325 MG TAB PO ONE (23:01)
[2025-03-17] MEDS: FUROSEMIDE 40 MG/4 ML VIAL IV ONE ×2 (23:01→23:22)
[2025-03-17] MEDS: KETOROLAC TROMETH 30 MG/ML 1ML VIAL IM ONE (23:22)
[2025-03-17] MEDS: FAMOTIDINE (10MG/ML) 2ML VL IV SCH (23:23)
[2025-03-17] MEDS: methylPREDNISolone SOD SUCC 125 MG/2 ML VL IV ONE (23:23)
[2025-03-18] VITALS (11 sets, daily range): BP systolic 110–124; BP diastolic 54–72; PULSE 70–123; RESP 16–21; TEMP 97.8–98.9; O2SAT 92–96
[2025-03-18] MEDS ORDERED: LOSA-534 PO (03:51)
[2025-03-18] MEDS ORDERED: GLIM2TAB94 PO (03:51)
[2025-03-18] MEDS ORDERED: ROPI0.5T26 PO (03:51)
[2025-03-18] MEDS ORDERED: TRAZ-228 PO (03:51)
[2025-03-18] MEDS ORDERED: EMPA1TAB3 PO (03:51)
[2025-03-18] MEDS ORDERED: SITA100T7 PO (03:51)
[2025-03-18] MEDS ORDERED: TIOT1AER PO (03:51)
[2025-03-18] MEDS ORDERED: SEMA1INJ2 SC (03:51)
[2025-03-18] MEDS ORDERED: ATOR20TA50 PO (03:51)
[2025-03-18] MEDS ORDERED: LAMO100T44 PO (03:51)
[2025-03-18] MEDS ORDERED: POM (03:52)
[2025-03-18] MEDS: HYDROcodone-ACET 5/325MG TAB PO PRN (04:17)
[2025-03-18 08:51] LABS: Hematocrit 51.0 % (41.0-53.0); Hemoglobin 17.1 g/dL (13.5-17.5); Mean Corpuscular Hemoglobin 30.8 pg (28.0-32.0); Mean Corpuscular Volume 92.0 fL (80.0-100.0); Nucleated Red Blood Cells % 0.0 %
[2025-03-18 09:09] LABS: Alanine Aminotransferase 28 U/L (7-40); Albumin 4.6 g/dL (3.2-4.8); Alkaline Phosphatase 111 U/L (46-116); Anion Gap 13 (5-15); BUN/Creatinine Ratio 15.7 (10.0-20.0); Blood Urea Nitrogen 21 mg/dL (9-23); Calcium 9.8 mg/dL (8.7-10.4); Chloride 106 mmol/L (98-107); Potassium 4.4 mmol/L (3.5-5.1); Sodium 137 mmol/L (136-145); Total Protein 7.1 g/dL (5.7-8.2)
[2025-03-18 09:10] LABS: Bilirubin, Total 0.5 mg/dL (0.2-1.0)
[2025-03-18 09:13] LABS: Carbon Dioxide 18 mmol/L (20-31)
[2025-03-18 09:14] LABS: Glucose 335 mg/dL (74-106)
[2025-03-18] MEDS: FUROSEMIDE 40 MG/4 ML VIAL IV SCH (09:41)
--- NOTE | 2025-03-18 14:14 | DVHPN2 ---
Subjective Shortness of breaths improving. Cough is improved. Continues to complain of left knee pain which is chronic. Reviewed: H&P Changes from previous H/P or p: No Changes General: Per HPI Eyes: No Pain, No Vision change, No Conjunctivae inflammation, No Eyelid inflammation, No Other, No Redness ENT: No Ear pain, No Ear discharge, No Nose pain, No Nose discharge, No Nose congestion, No Mouth pain, No Mouth swelling, No Throat pain, No Throat swelling, No Other Cardiovascular: No Chest Pain, No Palpitations, No Orthopnea, No Paroxysmal Noc. Dyspnea, No Edema, No Lt Headedness, No Other Respiratory: Cough; No Dry; Shortness of breath, SOB with excertion; No Wheezing, No Hemoptysis, No Pleuritic Pain, No Sputum; Other (SOB at rest) Gastrointestinal: No Nausea, No Vomiting, No Abdominal Pain, No Diarrhea, No Constipation, No Melena, No Hematochezia, No Other Genitourinary: No Dysuria, No Frequency, No Incontinence, No Hematuria, No Retention, No Other Musculoskeletal: other (Bilateral knee pain); No neck pain; shoulder pain; No arm pain, No back pain, No hand pain, No leg pain, No foot pain Skin: No Rash, No Lesions, No Jaundice, No Bruising, No Other Objective Vitals Vital Signs Date Time Temp Pulse Resp B/P (MAP) Pulse Ox O2 Delivery O2 Flow Rate FiO2 03/18/25 12:26 98.7 123 20 122/72 (89) 96 98.7 03/18/25 06:17 Nasal Cannula* 2 28 Exam GEN: Healthy appearing, well-developed, NAD. HEENT: NC/AT; MMM. CV: RRR, no m/r/g. LUNGS: Decreased breath sounds in bases bilaterally, possible left rales left lower lobe. Decreased air movement in upper airways. ABD: Soft, NT/ND, NBS, no masses or organomegaly. EXT: skin Warm, well perfused. no rashes. No clubbing, cyanosis, or edema. L ower extremity edema bilaterally +1 to trace up to upper shins bilateral NEURO: Ambulating with no limitations. No focal deficits. Medications Current Medications Medications Dose Ordered Sig/Jony Route Start Time Stop Time Status Last Admin Dose Admin Furosemide 40 mg DAILY IV 03/18/25 10:00 03/18/25 09:41 40 MG Methylprednisolone Sodium Succinate 40 mg Q8HR IV 03/17/25 22:00 03/18/25 13:45 40 MG Famotidine 20 mg Q12HR IV 03/17/25 22:00 03/18/25 09:41 20 MG Albuterol 2.5 mg Q4HPRN PRN NEB 03/17/25 20:45 Ipratropium [place] 0.5 mg Q4HPRN PRN NEB 03/17/25 20:45 Sodium Chloride 1,000 ml @ 60 mls/hr [id number] IV 03/17/25 20:45 Acetaminophen/ Hydrocodone Bitart 1 tab Q4HP PRN PO 03/17/25 20:45 03/18/25 09:58 1 TAB Ondansetron HCl 4 mg Q4HP PRN IV 03/17/25 20:45 Docusate Sodium 100 mg BIDPRN PRN PO 03/17/25 20:45 Acetaminophen 650 mg Q6HP PRN PO 03/17/25 20:45 Nitroglycerin 0.4 mg Q5MINP PRN SL 03/17/25 21:45 Morphine Sulfate 2 mg Q30M PRN IV 03/17/25 21:45 Laboratory Results Laboratory Tests 03/18/25 08:25 Chemistry Test 03/17/25 18:47 03/18/25 08:25 Calcium Level 9.0 mg/dL (8.7-10.4) 9.8 mg/dL (8.7-10.4) Albumin 4.6 g/dL (3.2-4.8) Total Protein 7.1 g/dL (5.7-8.2) Cardiac Markers Test 03/17/25 18:47 B-Type Natriuretic Peptide 3.70 pg/mL (0-100) LFT Test 03/18/25 08:25 Alanine Aminotransferase (ALT) 28 U/L (7-40) Alkaline Phosphatase 111 U/L (46-116) Aspartate Amino Transferase (AST) 22 U/L (13-40) Total Bilirubin 0.5 mg/dL (0.2-1.0) HgA1c, TSH Test 03/17/25 18:47 Hemoglobin A1c 8.0 % A1C (<5.7) H Labs and/or images reviewed: Labs reviewed by me, Image(s) reviewed by me Assessment/Plan Assessment/Plan History of Present Illness The patient is a 59-year-old male with multiple past medical history including anxiety, COPD, depression, diabetes mellitus, and hypertension who presented to [facility] ED with complaint of shortness of breaths. Patient reports he has been experiencing shortness of breaths associated with cough, congestion, increased work of breathing, generalized body pain, getting worse today that prompted this visit. Patient was seen and evaluated in the ED, laboratory data shows WBC 10.1, platelets 283, sodium 138, potassium 4.7, BUN 19, creatinine 1.11, glucose 170, calcium 9.0, troponin 4, blood pressure 109/54, heart rate 104, temperature 98.1 F, O2 saturation 94% on oxygen. Chest x-ray revealing pulmonary vascular congestion with bibasilar atelectasis. Patient was given breathing treatment, started on IV Solu-Medrol, please see medication orders section in the computer. On my assessment, patient denied chest pain, no headache, no dizziness, currently on oxygen, no nausea, no vomiting, no fever, no chills. Patient was admitted for further evaluation and medical management. 03/18-patient is hyperglycemic he was on the wrong diet. We will start diabetic diet. We will start sliding scale insulin q.6 moderate. We will continue his home meds Lamictal for depression, gabapentin, trazodone 50 night, ropinirole. We will also given fluids, patient took his home meds for diabetes. Recheck and give insulin accordingly. Change nebs to scheduled and continue Solu-Medrol. He has some rales and pitting edema. Possible patient has undiagnosed CHF. We will continue CPAP at 6 cm H2O. We will run rapid antigen for flu and COVID. Patient needs antibiotics azithromycin and ceftriaxone. We will continue to following up. Patient has terrible left knee pain which is chronic acute on chronic. Not controlled adequately by primary ortho sports, we will defer ongoing care to them, no concern for active swelling erythema which would concern me for septic arthritis. Acute hypoxic respiratory failure due to below COPD, with acute exacerbation, with pneumonitis CHF, in exacerbation, diastolic dysfunction likely. Tachycardia Tachypnea Pneumonia, community-acquired, Gram-negative Gram-positive possible Sepsis due to above Leukocytosis Neutrophilia YNES due to VMN Diabetes, with hyperglycemia -We will stop any further fluids as patient is tolerating p.o. and he has edema. -Pepcid b.i.d. for GI prophylaxis -Lasix 40 IV daily -Continue home meds gabapentin, Lamictal,, trazodone, ropinirole, -Sliding scale moderate q.6 -Duo nebs q.4 -Solu-Medrol 40 IV b.i.d. -Prn pain control -Prn antiemetics Diabetic diet GI prophylaxis Pepcid DVT prophylaxis ambulating Tele Full code Plan discussed with: Patient Date of Service: Mar 18, 2025 Billing Provider: JACINTO BLOOM MD Common Visit Codes: [id number] INP/OBS CARE(HIGH) JACINTO BLOOM MD Mar 18, 2025 14:14
[2025-03-18] MEDS ORDERED: DEXTROSE (50%) 50ML SYRG IV PRN (15:30)
[2025-03-18] MEDS: LACTATED RINGER'S 500 ML IV SCH (15:30)
[2025-03-18] MEDS: ACCU-CHEK COMFORT CURVE STRIP VI SCH (18:12)
[2025-03-18] MEDS: InsuLIN REG 1unit/0.01ml Soln (100units/ml) SC SCH (18:21)
[2025-03-18] MEDS: lamoTRIgine 100 MG TAB PO SCH (21:00)
[2025-03-18] MEDS: methylPREDNISolone SOD SUCC 40 MG/ML VL IV SCH (21:01)
[2025-03-18] MEDS: ALBUTEROL SULF 2.5 MG/0.5ML(0.5%) NEB SOLN NEB SCH (21:58)
[2025-03-18] MEDS: IPRATROPIUM BROM 0.5 MG/2.5ML INH SOL NEB SCH (21:58)
[2025-03-18 22:24] LABS: COVID19 ANTIGEN SOFIA FIA NEGATIVE (NEGATIVE)
[2025-03-19] VITALS (10 sets, daily range): BP systolic 101–123; BP diastolic 58–68; PULSE 95–113; RESP 16–20; TEMP 36.2; O2SAT 92–97
[2025-03-19 07:32] LABS: Hematocrit 48.5 % (41.0-53.0); Hemoglobin 16.3 g/dL (13.5-17.5); Mean Corpuscular Hemoglobin 30.8 pg (28.0-32.0); Mean Corpuscular Volume 91.7 fL (80.0-100.0); Nucleated Red Blood Cells % 0.1 %
[2025-03-19 07:34] LABS: Anion Gap 15 (5-15); Chloride 103 mmol/L (98-107); Potassium 3.8 mmol/L (3.5-5.1); Sodium 138 mmol/L (136-145)
[2025-03-19 07:35] LABS: Calcium 9.7 mg/dL (8.7-10.4)
[2025-03-19 07:38] LABS: Carbon Dioxide 20 mmol/L (20-31)
[2025-03-19 07:40] LABS: BUN/Creatinine Ratio 20.5 (10.0-20.0)
[2025-03-19 07:42] LABS: Blood Urea Nitrogen 25 mg/dL (9-23); Glucose 236 mg/dL (74-106)
[2025-03-19] MEDS: GABAPENTIN 300 MG CAP PO SCH (10:00)
--- NOTE | 2025-03-19 10:24 | DVHPN2 ---
Subjective Shortness of breaths improving. Cough is improved. Continues to complain of left knee pain which is chronic. Reviewed: H&P General: Per HPI Eyes: No Pain, No Vision change, No Conjunctivae inflammation, No Eyelid inflammation, No Other, No Redness ENT: No Ear pain, No Ear discharge, No Nose pain, No Nose discharge, No Nose congestion, No Mouth pain, No Mouth swelling, No Throat pain, No Throat swelling, No Other Cardiovascular: No Chest Pain, No Palpitations, No Orthopnea, No Paroxysmal Noc. Dyspnea, No Edema, No Lt Headedness, No Other Respiratory: Cough; No Dry; Shortness of breath, SOB with excertion; No Wheezing, No Hemoptysis, No Pleuritic Pain, No Sputum; Other (SOB at rest) Gastrointestinal: No Nausea, No Vomiting, No Abdominal Pain, No Diarrhea, No Constipation, No Melena, No Hematochezia, No Other Genitourinary: No Dysuria, No Frequency, No Incontinence, No Hematuria, No Retention, No Other Musculoskeletal: other (Bilateral knee pain); No neck pain; shoulder pain; No arm pain, No back pain, No hand pain, No leg pain, No foot pain Skin: No Rash, No Lesions, No Jaundice, No Bruising, No Other Objective Vitals Vital Signs Date Time Temp Pulse Resp B/P (MAP) Pulse Ox O2 Delivery O2 Flow Rate FiO2 03/19/25 10:13 107 18 97 03/19/25 10:07 Nasal Cannula 2.0 03/19/25 10:07 28 03/19/25 09:04 97.2 118/58 (78) 97.2 Intake/Output Intake and Output 03/19/25 07:00 Intake Total 3850 ml Balance 3850 ml Intake Oral 3850 ml # Voids 21 # Bowel Movements 2 Exam GEN: Healthy appearing, well-developed, NAD. HEENT: NC/AT; MMM. CV: RRR, no m/r/g. LUNGS: Decreased breath sounds in bases bilaterally, possible left rales left lower lobe. Decreased air movement in upper airways. ABD: Soft, NT/ND, NBS, no masses or organomegaly. EXT: skin Warm, well perfused. no rashes. No clubbing, cyanosis, or edema. L ower extremity edema bilaterally +1 to trace up to upper shins bilateral NEURO: Ambulating with no limitations. No focal deficits. Medications Current Medications Medications Dose Ordered Sig/Jony Route Start Time Stop Time Status Last Admin Dose Admin Furosemide 40 mg DAILY IV 03/18/25 10:00 03/18/25 09:41 40 MG Famotidine 20 mg Q12HR IV 03/17/25 22:00 03/18/25 21:01 20 MG Acetaminophen/ Hydrocodone Bitart 1 tab Q4HP PRN PO 03/17/25 20:45 03/18/25 17:32 1 TAB Ondansetron HCl 4 mg Q4HP PRN IV 03/17/25 20:45 Docusate Sodium 100 mg BIDPRN PRN PO 03/17/25 20:45 Acetaminophen 650 mg Q6HP PRN PO 03/17/25 20:45 Nitroglycerin 0.4 mg Q5MINP PRN SL 03/17/25 21:45 Morphine Sulfate 2 mg Q30M PRN IV 03/17/25 21:45 Diagnostic Test (Pha) 1 strip Q6HR 03/18/25 18:00 03/19/25 05:17 1 STRIP Insulin Human Regular Q6HR SC 03/18/25 18:00 03/19/25 05:17 9 UNITS Dextrose 50 ml UD PRN IV 03/18/25 15:30 Lamotrigine 150 mg DAILY PO 03/18/25 20:00 03/18/25 21:00 150 MG Gabapentin 300 mg DAILY PO 03/19/25 10:00 Albuterol 2.5 mg Q4H NEB 03/18/25 22:00 03/19/25 10:05 2.5 MG Ipratropium [place] 0.5 mg Q4H NEB 03/18/25 22:00 03/19/25 10:05 0.5 MG Methylprednisolone Sodium Succinate 40 mg BID IV 03/18/25 22:00 03/18/25 21:01 40 MG Laboratory Results Laboratory Tests 03/19/25 06:05 Chemistry Test 03/19/25 06:05 Calcium Level 9.7 mg/dL (8.7-10.4) Assessment/Plan Assessment/Plan History of Present Illness The patient is a 59-year-old male with multiple past medical history including anxiety, COPD, depression, diabetes mellitus, and hypertension who presented to [facility] ED with complaint of shortness of breaths. Patient reports he has been experiencing shortness of breaths associated with cough, congestion, increased work of breathing, generalized body pain, getting worse today that prompted this visit. Patient was seen and evaluated in the ED, laboratory data shows WBC 10.1, platelets 283, sodium 138, potassium 4.7, BUN 19, creatinine 1.11, glucose 170, calcium 9.0, troponin 4, blood pressure 109/54, heart rate 104, temperature 98.1 F, O2 saturation 94% on oxygen. Chest x-ray revealing pulmonary vascular congestion with bibasilar atelectasis. Patient was given breathing treatment, started on IV Solu-Medrol, please see medication orders section in the computer. On my assessment, patient denied chest pain, no headache, no dizziness, currently on oxygen, no nausea, no vomiting, no fever, no chills. Patient was admitted for further evaluation and medical management. 03/18-patient is hyperglycemic he was on the wrong diet. We will start diabetic diet. We will start sliding scale insulin q.6 moderate. We will continue his home meds Lamictal for depression, gabapentin, trazodone 50 night, ropinirole. We will also given fluids, patient took his home meds for diabetes. Recheck and give insulin accordingly. Change nebs to scheduled and continue Solu-Medrol. He has some rales and pitting edema. Possible patient has undiagnosed CHF. We will continue CPAP at 6 cm H2O. We will run rapid antigen for flu and COVID. Patient needs antibiotics azithromycin and ceftriaxone. We will continue to following up. Patient has terrible left knee pain which is chronic acute on chronic. Not controlled adequately by primary ortho sports, we will defer ongoing care to them, no concern for active swelling erythema which would concern me for septic arthritis. 03/19 losartan, Lipitor, trazodone nightly, Risperdal, we will deescalate duo nebs to q.6, continue sliding scale moderate trended down to a.c. HS. Discussed with RN. Weaned down oxygen back to room air as best as possible. Acute hypoxic respiratory failure due to below COPD, with acute exacerbation, with pneumonitis CHF, in exacerbation, diastolic dysfunction likely. Tachycardia Tachypnea Pneumonia, community-acquired, Gram-negative Gram-positive possible Sepsis due to above Leukocytosis Neutrophilia YNES due to VMN Diabetes, with hyperglycemia -We will stop any further fluids as patient is tolerating p.o. and he has edema. -Pepcid b.i.d. for GI prophylaxis -Lasix 40 IV daily -Continue home meds gabapentin, Lamictal,, trazodone, ropinirole, -Sliding scale moderate q.6 -Duo nebs q.4 -Solu-Medrol 40 IV b.i.d. -Prn pain control -Prn antiemetics Diabetic diet GI prophylaxis Pepcid DVT prophylaxis ambulating Tele Full code My Orders Orders - JACINTO BLOOM MD Procedure Category Date Status Time Consistent DIET 03/18/25 Transmitted Carb(Ccho)Diabetes Dinner Glucose Blood PHA 03/18/25 In Process (Accu-Chek Comfort 18:00 Insulin R (Human) PHA 03/18/25 In Process (Insulin R) 18:00 Dextrose 50% Syringe PHA 03/18/25 In Process 15:30 Lamotrigine Tablet PHA 03/18/25 In Process (Lamictal Tablet) 20:00 Gabapentin Capsule PHA 03/19/25 In Process (Neurontin Capsule) 10:00 Bipap/Cpap For Sleep RT 03/18/25 Logged Apnea 17:57 Albuterol Medneb PHA 03/18/25 In Process (Ventolin Medneb) 22:00 Ipratropium Med[place] PHA 03/18/25 In Process (Atrovent Medneb) 22:00 Methylprednisolone PHA 03/18/25 In Process Sod Succ (Solu Medrol 22:00 Date of Service: Mar 19, 2025 Billing Provider: JACINTO BLOOM MD Common Visit Codes: NOT BILLABLE JACINTO BLOOM MD Mar 19, 2025 10:24
[2025-03-19] MEDS: InsuLIN REG 1unit/0.01ml Soln (100units/ml) SC SCH (11:30)
[2025-03-19] MEDS: ACCU-CHEK COMFORT CURVE STRIP VI SCH (11:30)
[2025-03-19] MEDS ORDERED: PRED20TA2 PO (14:23)
[2025-03-19] MEDS ORDERED: AZIT500T66 PO (14:23)
--- NOTE | 2025-03-19 14:36 | DVHDS2 ---
Discharge Summary Date of Admission Mar 17, 2025 at 21:33 Date of Discharge: Mar 19, 2025 Labs/Diagnostic Data: Laboratory Results Test 03/19/25 11:43 03/19/25 06:05 03/18/25 21:47 03/18/25 08:25 POC Glucose 219 mg/dl (70-106) White Blood Count 16.2 10^3/uL (4.4-10.8) Red Blood Count 5.29 10^6/uL (4.5-5.90) Hemoglobin 16.3 g/dL (13.5-17.5) Hematocrit 48.5 % (41.0-53.0) Mean Corpuscular Volume 91.7 fL (80.0-100.0) Mean Corpuscular Hemoglobin 30.8 pg (28.0-32.0) Mean Corpuscular Hemoglobin Concent 33.6 g/dL (32.0-36.0) Red Cell Distribution Width 14.7 % (11.8-14.3) Platelet Count 290 10^3/uL (140-450) Mean Platelet Volume 8.9 fL (6.9-10.8) Neutrophils (%) (Auto) 86.6 % (37.0-80.0) Lymphocytes (%) (Auto) 7.0 % (10.0-50.0) Monocytes (%) (Auto) 6.3 % (0.0-12.0) Eosinophils (%) (Auto) 0.0 % (0.0-7.0) Basophils (%) (Auto) 0.1 % (0.0-2.0) Neutrophils # (Auto) 14.0 10 ^3/uL (1.6-8.6) Lymphocytes # (Auto) 1.1 10 ^3/uL (0.4-5.4) Monocytes # (Auto) 1.0 10 ^3/uL (0-1.3) Eosinophils # (Auto) 0 10 ^3/uL (0-0.8) Basophils # (Auto) 0 10 ^3/uL (0-0.2) Nucleated Red Blood Cells 0.1 % Sodium Level 138 mmol/L (136-145) Potassium Level 3.8 mmol/L (3.5-5.1) Chloride Level 103 mmol/L (98-107) Carbon Dioxide Level 20 mmol/L (20-31) Anion Gap 15 (5-15) Blood Urea Nitrogen 25 mg/dL (9-23) Creatinine 1.22 mg/dL (0.700-1.30) Glomerular Filtration Rate Calc 69 mL/min (>90) BUN/Creatinine Ratio 20.5 (10.0-20.0) Serum Glucose 236 mg/dL (74-106) Calcium Level 9.7 mg/dL (8.7-10.4) Influenza Type A Antigen Negative (Negative) Influenza Type B Antigen Negative (Negative) SARS-CoV-2 Antigen (Rapid) Negative (NEGATIVE) Total Bilirubin 0.5 mg/dL (0.2-1.0) Aspartate Amino Transferase (AST) 22 U/L (13-40) Alanine Aminotransferase (ALT) 28 U/L (7-40) Alkaline Phosphatase 111 U/L (46-116) Total Protein 7.1 g/dL (5.7-8.2) Albumin 4.6 g/dL (3.2-4.8) Test 03/17/25 18:47 Hemoglobin A1c 8.0 % A1C (<5.7) Troponin I High Sensitivity 4 ng/L (</=54) B-Type Natriuretic Peptide 3.70 pg/mL (0-100) Other Laboratory Tests 03/19/25 06:05 Brief Hx & Hospital Course: History of Present Illness The patient is a 59-year-old male with multiple past medical history including anxiety, COPD, depression, diabetes mellitus, and hypertension who presented to [facility] ED with complaint of shortness of breaths. Patient reports he has been experiencing shortness of breaths associated with cough, congestion, increased work of breathing, generalized body pain, getting worse today that prompted this visit. Patient was seen and evaluated in the ED, laboratory data shows WBC 10.1, platelets 283, sodium 138, potassium 4.7, BUN 19, creatinine 1.11, glucose 170, calcium 9.0, troponin 4, blood pressure 109/54, heart rate 104, temperature 98.1? F, O2 saturation 94% on oxygen. Chest x-ray revealing pulmonary vascular congestion with bibasilar atelectasis. Patient was given breathing treatment, started on IV Solu-Medrol, please see medication orders section in the computer. On my assessment, patient denied chest pain, no headache, no dizziness, currently on oxygen, no nausea, no vomiting, no fever, no chills. Patient was admitted for further evaluation and medical management. 03/18-patient is hyperglycemic he was on the wrong diet. We will start diabetic diet. We will start sliding scale insulin q.6 moderate. We will continue his home meds Lamictal for depression, gabapentin, trazodone 50 night, ropinirole. We will also given fluids, patient took his home meds for diabetes. Recheck and give insulin accordingly. Change nebs to scheduled and continue Solu-Medrol. He has some rales and pitting edema. Possible patient has undiagnosed CHF. We will continue CPAP at 6 cm H2O. We will run rapid antigen for flu and COVID. Patient needs antibiotics azithromycin and ceftriaxone. We will continue to following up. Patient has terrible left knee pain which is chronic acute on chronic. Not controlled adequately by primary ortho sports, we will defer ongoing care to them, no concern for active swelling erythema which would concern me for septic arthritis. 03/19 losartan, Lipitor, trazodone nightly, Risperdal, we will deescalate duo nebs to q.6, continue sliding scale moderate trended down to a.c. HS. Discussed with RN. Weaned down oxygen back to room air as best as possible. patient able to be weaned off oxygen. he was taking home medications while in hospital. also very irritated and anxious. delusions, despite proving to patient that insulin is not causing hyperglycemia. weaned off oxygen, no SI, wants to go home, no wheezing, denies wanting insulin despite i think he needs insulin to control a1c and diabetes. stable for discharge as per plan below. diagnosis: Acute hypoxic respiratory failure due to below COPD, with acute exacerbation, with pneumonitis CHF, in exacerbation, diastolic dysfunction likely. anxiety disorder, moderate-severe Tachycardia Tachypnea Pneumonia, community-acquired, Gram-negative Gram-positive possible Sepsis due to above Leukocytosis Neutrophilia YNES due to VMN Diabetes, with hyperglycemia plan: - off oxygen. ok for discharge home. - azithromycin 500mg daily, x5 days - prednisone 40mg (2tabs) daily x5days - continue home medications - continue maintenance home inhalers - follow-up with PCP and primary sports/orthopedist for dc follow-up and follow- up on chronic Left knee pain. Condition at Discharge: Fair Final Diagnosis/Problems List Acute hypoxic respiratory failure due to below COPD, with acute exacerbation, with pneumonitis CHF, in exacerbation, diastolic dysfunction likely. Tachycardia Tachypnea Pneumonia, community-acquired, Gram-negative Gram-positive possible Sepsis due to above Leukocytosis Neutrophilia YNES due to VMN Diabetes, with hyperglycemia Discharge Disposition: Home Discharge Instruct/Medications Diet: Cardiac 2g Na,low cholest Activity: No Restrictions, As Tolerated Follow Up/Referral: below Medications: below Scheduled Acetaminophen (Tylenol 8 Hour Arthritis), 650 MG PO TID Atorvastatin Calcium (Atorvastatin Calcium), 1 TAB PO DAILY, (Reported) Azithromycin (Azithromycin), 1 TAB PO DAILY Clindamycin Hcl (Clindamycin Hcl), 1 CAP PO BID Empagliflozin (Jardiance), 1 TAB PO DAILY, (Reported) Glimepiride (Glimepiride), 1 TAB PO DAILY, (Reported) Ibuprofen (Ibuprofen), 1 TAB PO TID Ibuprofen (Ibuprofen), 1 TAB PO TID Levofloxacin Hemihydrate (Levaquin 500 Mg), 1 TAB PO DAILY Losartan Potassium (Losartan Potassium), 1 TAB PO DAILY, (Reported) Naproxen (Naproxen), 500 MG PO BID Naproxen (Naproxen), 500 MG PO BIDPC Prednisone (Prednisone), 60 MG PO DAILY Prednisone (Prednisone), 40 MG PO DAILY Promethazine-Dm (Promethazine Dm 6.25-15 mg/5Ml), 10 OCHOA PO TID Semaglutide (Ozempic), 2 MG SC QWEEKLY, (Reported) Sitagliptin Phosphate (Januvia), 1 TAB PO DAILY, (Reported) Tiotropium [place]-Olodaterol (Stiolto Respimat 2.5-2.5 Mcg/Act), 2 PUFF PO DAILY, (Reported) Scheduled PRN Methocarbamol (Methocarbamol), 500 MG PO Q8HP PRN Trazodone Hcl (Trazodone Hcl), 2 TAB PO QHSP PRN for FOR INSOMNIA, (Reported) Miscellaneous Medications Lamotrigine (Lamotrigine), 1 TAB PO, (Reported) Patients Own Medication (Patients Own Medication), (Reported) Ropinirole Hydrochloride (Ropinirole Hcl), 1 TAB PO, (Reported) Discharge Statement: "Patient was advised to return to the ER or call 911 if any headaches, dizziness, shortness of breath, chest pain, abdominal pain, bleeding, fevers, or worsening of medical condition. Patient was counseled about treatment plan, medications, possible side effects, patientverbalized understanding. All questions were answered to the best of my ability. This discharge took greater then 30 minutes in planning, reviewing documentation, counseling the patient, and discussing with other team members." Date of Service: Mar 19, 2025 Billing Provider: JACINTO BLOOM MD Common Visit Codes: [id number] DISCH DAY >30min JACINTO BLOOM MD Mar 19, 2025 14:36
== END 2025-03-19 16:45 | disposition home or self-care (01) | DRG 871 ==
LOC: ER 16:15 → OVERFLOW 21:33 → TELE-EAST 03-18 03:28
PROVIDERS: ADMIT Student in an Organized Health Care Education/Training Program; ATTEND Student in an Organized Health Care Education/Training Program
PROC: 5A09357 Assistance with Respiratory Ventilation, Less than 24 Consecutive Hours, Continuous Positive Airway Pressure (ICD-10-PCS; principal; 2025-03-18)
PROC: 5A09357 Assistance with Respiratory Ventilation, Less than 24 Consecutive Hours, Continuous Positive Airway Pressure (ICD-10-PCS; 2025-03-19)
DX: A41.59 Other Gram-negative sepsis (principal); I50.33 Acute on chronic diastolic (congestive) heart failure; J15.69 Pneumonia due to other Gram-negative bacteria; J15.9 Unspecified bacterial pneumonia; J96.01 Acute respiratory failure with hypoxia; N17.0 Acute kidney failure with tubular necrosis; J44.1 Chronic obstructive pulmonary disease with (acute) exacerbation; J44.0 Chronic obstructive pulmonary disease with (acute) lower respiratory infection; E11.65 Type 2 diabetes mellitus with hyperglycemia; F22 Delusional disorders; F41.9 Anxiety disorder, unspecified; I11.0 Hypertensive heart disease with heart failure; J98.4 Other disorders of lung; F32.A Depression, unspecified; Z79.899 Other long term (current) drug therapy
CPT/HCPCS: 36415; 71045; 80048; 80053; 82962; 83036; 83880; 84484; 85025; 87426; 87804; 93005; 94640; 94660; G0378; J1815; J1885; J3490

== ENCOUNTER 2025-06-02 17:23 | Emergency (ER) | payer OTHER, MEDICAID ==
[~2025-06-02] VITALS: Ht 167.6 cm; Wt 119.5 kg
[~2025-06-02 17:23] MED LIST changes: +ATOR20TA50 PO; +AZIT500T66 PO; +EMPA1TAB3 PO; +GLIM2TAB94 PO; +LAMO100T44 PO; -LEVO500T91 PO; +LOSA-534 PO; +POM; +ROPI0.5T26 PO; +SEMA1INJ2 SC; +SITA100T7 PO; +TIOT1AER PO; +TRAZ-228 PO
--- NOTE | 2025-06-02 18:42 | DVH ---
CHEST RADIOGRAPH Indication: chest pain Technique: Frontal and lateral view of the chest was obtained Comparison: XY CHEST XRAY 1 VIEW on DOS: 03/17/25, XY CHEST PORTABLE on DOS: 10/21/24, XY CHEST TWO VIE WS ROUTINE on DOS: 09/07/24, XY CHEST PORTABLE on DOS: 03/18/24 FINDINGS: Lines and Tubes: None Lungs: Congestion Pleura: No effusion. No pneumothorax. Cardiomediastinal contours: Unremarkable Bones: Unremarkable IMPRESSION: Increased interstital prominence. This may represent pulmonary vascular congestion and/or viral pneum onia. Clinical correlation advised.
--- NOTE | 2025-06-02 19:14 | ED.PDOC ---
SOB-HPI HPI Comments s C/O COUGH WITH CONGESTION STATES NOW "MY RIGHT RIB HURTS, I THINK I PULLED A MUSCLE." THROAT GOT SORE FROM COUGHING SO HARD 4/10 CONSTANT, 8/10 WHEN COUGHING SOB A LITTLE MORE THAN NORMAL PATIENT HAS A HISTORY OF COPD, DENIES HOME O2 STATES O2 RUNS A LITTLE LOW . DENIES DIFFICULTY BREATHING, CHEST PAIN, FEVER, CHILLS, NAUSEA OR VOMITING. Chief Complaint: Rib Pain Time Seen by MD: 18:07 Primary Care Provider: TRE Reviewed notes: Nurses Notes, Medications, Allergies Information Source: Patient Mode of Arrival: Ambulatory Past Medical History PAST MEDICAL HISTORY: Anxiety, Arthritis, COPD, Depression, DM, High Lipids, HTN Surgical History: Denies all surgeries Family History Family History: Reviewed,noncontributory to illness, Unknown Social History Smoker: Non-Smoker Alcohol: Denies ETOH Use Drugs: Denies Drug Use Lives In: Home All Other Systems: Reviewed and Negative (SEE HPI) Physical Exam General Appearance: No Apparent Distress, Normal HEENT: Normal ENT Inspection, Pharynx Normal, TMs Normal Neck: Full Range of Motion, Non-Tender Respiratory: Lungs Clear, No Accessory Muscle Use, No Respiratory Distress, Normal Breath Sounds, Other (RIGHT ANTERIOR LATERAL LOWER RIB TENDERNESS ON PALPATION) Cardiovascular: No Edema, No JVD, No Murmur, No Gallop, Normal Peripheral Pulses, Regular Rate/Rhythm Breast Exam: Deferred Gastrointestinal: No Organomegaly, Non Tender, No Pulsatile Mass, Normal Bowel Sounds, Soft Genitalia: Deferred Pelvic: Deferred Rectal: Deferred Extremities: No calf tenderness, Normal capillary refill, Normal inspection, Normal range of motion, Non-tender, No pedal edema Musculoskeletal : Apperance: Normal Neurologic: Alert, blood coordinator II-XII nml as Tested, No Motor Deficits, Normal Affect, Normal Mood, No Sensory Deficits Cerebellar Function: Normal Reflexes: Normal Skin: Dry, Normal Color, Warm Lymphatic: No Adenopathy Was a procedure done? Was a procedure done?: No Differential Dx Differential Diagnosis: CHF, COPD, Pneumonia, URI X-Ray, Labs, Meds, VS Vital Signs Date Time Temp Pulse Resp B/P (MAP) Pulse Ox O2 Delivery O2 Flow Rate FiO2 06/02/25 17:24 98.1 113 22 121/74 95 98.1 X-Ray, Labs, Meds, VS Comment IMPRESSION: Increased interstital prominence. This may represent pulmonary vascular congestion and/or viral pneumonia. Clinical correlation advised. PATIENT'S PAST X-RAYS REVIEWED PATIENT REPORTS HISTORY OF PNEUMONIA PROXIMALLY ONE MONTH AGO. DOES SHOW IMPROVEMENT. OVER WE WILL TRIAL SOME ANTIBIOTICS COVER POSSIBLE BACTERIAL PNEUMONIA PATIENT GIVEN ROCEPHIN IM SCRIPT TRIAL OF AZITHROMYCIN. PATIENT GIVEN NORCO FOR THE PAIN REPORTS IMPROVEMENT REQUESTING DISCHARGE AT THIS TIME. ADVISED HIM TO REST INCREASE P.O. FLUIDS WITH ELECTROLYTES [id number] TYLENOL NEEDED FOR FEVER PER LABELED DOSING INSTRUCTIONS. ADVISED TO FOLLOW UP WITH HIS PCP IN TWO TO DAYS FOR RE- EVALUATION ADVISED ON ER RETURN PRECAUTIONS PATIENT INDICATES UNDERSTANDING AND AGREES WITH DISCHARGE PLAN OF CARE. Time of 1ST Reevaluation: 18:30 Reevaluation 1ST: Unchanged Time of 2ND Reevaluation: 19:20 Reevaluation 2ND: Improved Patient Education/Counseling: Diagnosis, Treatment, Need For Follow Up Family Education/Counseling: No Family Present SEPSIS Sepsis Screen Date sepsis recognized/suspect: Jun 02, 2025 Time Sepsis recognized/suspect: 1728 Recent Procedure: No On Antibiotic Therapy: No Respiratory Rate >20: No Heart Rate >90: No Temp<36 C (96.8 F) or >38.3 C: No SBP <90 or MAP <65 mmHG: No New Acute Mental Status Change: No Is the patient on CPAP, BIPAP,: No Physician Orders Chest Two Views Routine (06/02/25 18:09) Vital Signs Date Time Temp Pulse Resp B/P (MAP) Pulse Ox O2 Delivery O2 Flow Rate FiO2 06/02/25 17:24 98.1 113 22 121/74 95 98.1 Departure 1 Departure Time of Disposition: 19:18 Impression: Primary Impression: Lower respiratory infection Disposition: 01 HOME / SELF CARE / HOMELESS Condition: Stable e-Prescriptions Azithromycin (Azithromycin) 500 Mg Tab 500 MG PO DAILY for 5 Days, #5 TAB Prov: RAGHAV GERMAIN 06/02/25 Discharged With: Self Critical Care Note Critical Care Time?: No Stability Stability form required: No Heart Score Heart Score: Heart Score Response (Comments) Value History N/A 0 EKG N/A 0 Age 45-64 1 Risk Factors 1 or 2 risk factors 1 Troponin N/A 0 Total 2 RAGHAV GERMAIN Jun 02, 2025 19:14
[2025-06-02] MEDS ORDERED: AZIT500T66 PO (19:21)
[2025-06-02] MEDS: HYDROcodone-ACET 5/325MG TAB PO ONE (19:31)
[2025-06-02] MEDS: cefTRIAXone SOD 1,000 MG VL IM ONE (19:31)
[2025-06-02 19:37] VITALS: BP 138/80; PULSE 100; RESP 20; TEMP 98; O2SAT 92
== END 2025-06-02 19:53 | disposition home or self-care (01) ==
LOC: ER 17:26
DX: J22 Unspecified acute lower respiratory infection (principal); I10 Essential (primary) hypertension; E11.9 Type 2 diabetes mellitus without complications; Z79.899 Other long term (current) drug therapy
CPT/HCPCS: 71046; 96372; 99283; J0696

== ENCOUNTER 2025-06-03 13:54 | Inpatient (IN) | payer MEDICARE, MEDICAID ==
[~2025-06-03] VITALS: Ht 167.6 cm; Wt 125.0 kg
[2025-06-03] MEDS ORDERED: BACLOFEN 10 MG TAB PO ONE (14:45)
[2025-06-03] MEDS ORDERED: ALBUTEROL SULF 2.5 MG/0.5ML(0.5%) NEB SOLN NEB ONE (14:45)
--- NOTE | 2025-06-03 14:45 | ED.PDOC ---
SOB-HPI HPI Comments Tyler Quiroz is a 52 a male is a 60-year-old male, with past medical history obesity, COPD, asthma, pneumonia, carpal tunnel, and osteoarthritis. The patient came to the ED with chief complaint of 3 days o cough, productive, green sputum, intermittent, associated with malaise,chills, shortness of breath and orthopnea. The patient reports she was in the ED a day prior 06/02, but he's symptoms have worsen, his home oxygenation was 87%, this prompt his return to the ED. He denies nausea, diarrhea, vomit, fever,or other symptoms. In the ED his O2sat is 91% on room air. The patient will be admitted for further assessment and management. Chief Complaint: Shortness of Breath Time Seen by MD: 14:30 Primary Care Provider: TRE Leung notes: Nurses Notes, Medications, Allergies Information Source: Patient Mode of Arrival: Ambulatory Severity: Moderate Timing: Days Duration: Since onset Context: At Rest History of: Asthma, COPD Modifying Factors: Exertion If cough with SOB: Productive (green sputum) Past Medical History PAST MEDICAL HISTORY: Anxiety, Arthritis, Asthma, COPD, Depression, DM, High Lipids, HTN Past Medical History (Other): Multiples pneumonia episodes due to COPD Surgical History: Denies all surgeries Family History Family History: Reviewed,noncontributory to illness, Unknown Social History Smoker: Non-Smoker Alcohol: Denies ETOH Use Drugs: Denies Drug Use Lives In: Home Constitutional: denies: chills, diaphoresis, fatigue, fever, malaise, sweats, weakness, others EENTM: denies: blurred vision, double vision, ear bleeding, ear discharge, ear drainage, ear pain, ear ringing, eye pain, eye redness, hearing loss, mouth pain, mouth swelling, nasal discharge, nose bleeding, nose congestion, nose pain, photophobia, tearing, throat pain, throat swelling, voice changes, others Respiratory: reports: cough (Productive, green sputum ), orthopnea, SOB at rest , shortness of breath Cardiovascular: denies: chest pain, dizzy spells, diaphoresis, Dyspnea on exertion, edema, irregular heart beat, left arm pain, lightheadedness, palpitations, PND, syncope, others Gastrointestinal: denies: abdomen distended, abdominal pain, blood streaked bowels, constipated, diarrhea, dysphagia, difficulty swallowing, hematemesis, melena, nausea, poor appetite, poor fluid intake, rectal bleeding, rectal pain, vomiting, others Genitourinary: denies: burning, dysuria, flank pain, frequency, hematuria, incontinence, penile discharge, penile sore, pain, testicle pain, testicle swelling, urgency, others Neurological: denies: dizziness, fainting, headache, left sided numbness, left sided weakness, numbness, paresthesia, pre-existing deficit, right sided numbness, right sided weakness, seizure, speech problems, tingling, tremors, weakness, others Musculoskeletal: reports: muscle pain (over the right toraxic cage due to cough) Integumetry: denies: bruises, change in color, change in hair/nails, dryness, laceration, lesions, lumps, rash, wounds, others Allergic/Immunocompromised: denies: Difficulty Healing, Frequent Infections, Hives, Itching, others Hematologic/Lymphatic: denies: anemia, blood clots, easy bleeding, easy bruising, swollen glands, others Endocrine: denies: excessive hunger, excessive sweating, excessive thirst, excessive urination, flushing, intolerance to cold, intolerance to heat, unexpla ined weight gain, unexplained weight loss, others Psychiatric: denies: anxiety, bipolar disorder, depression, hopeless, panic disorder, schizophrenia, sleepless, suicidal, others Physical Exam General Appearance: Mild Distress HEENT: Normal ENT Inspection, Pharynx Normal, TMs Normal Neck: Full Range of Motion, Non-Tender, Normal, Normal Inspection Respiratory: Crackles (Bilateral mild crackles on the bases), Other (O2Sat 91% at room air. ) Cardiovascular: No Edema, No JVD, No Murmur, Regular Rate/Rhythm, Tachycardia, Other (There is a tendernes over right chest wall. ) Breast Exam: Deferred Gastrointestinal: No Organomegaly, Non Tender, No Pulsatile Mass, Normal Bowel Sounds, Soft Genitalia: Deferred Pelvic: Deferred Rectal: Deferred Extremities: No calf tenderness, Normal capillary refill, Normal inspection, Normal range of motion, Non-tender, No pedal edema Neurologic: Alert, associate trainer II-XII nml as Tested, No Motor Deficits, Normal Affect, Normal Mood, No Sensory Deficits Cerebellar Function: Normal Reflexes: Normal Skin: Dry, Normal Color, Warm Lymphatic: No Adenopathy Was a procedure done? Was a procedure done?: No Differential Dx Differential Diagnosis: Asthma, Bronchitis, COPD, Pneumonia X-Ray, Labs, Meds, VS Vital Signs Date Time Temp Pulse Resp B/P (MAP) Pulse Ox O2 Delivery O2 Flow Rate FiO2 06/03/25 15:10 98.0 117 18 123/73 (90) 91 98.0 06/03/25 15:10 117 18 91 Room Air* 0 21 06/03/25 13:58 97.7 117 24 137/71 91 97.7 Lab Test 06/03/25 15:11 Range/Units White Blood Count 9.0 4.4-10.8 10^3/uL Red Blood Count 5.53 4.5-5.90 10^6/uL Hemoglobin 17.3 13.5-17.5 g/dL Hematocrit 50.0 41.0-53.0 % Mean Corpuscular Volume 90.4 80.0-100.0 fL Mean Corpuscular Hemoglobin 31.3 28.0-32.0 pg Mean Corpuscular Hemoglobin Concent 34.6 32.0-36.0 g/dL Red Cell Distribution Width 14.6 H 11.8-14.3 % Platelet Count 281 140-450 10^3/uL Mean Platelet Volume 8.1 6.9-10.8 fL Neutrophils (%) (Auto) 67.7 37.0-80.0 % Lymphocytes (%) (Auto) 21.1 10.0-50.0 % Monocytes (%) (Auto) 8.4 0.0-12.0 % Eosinophils (%) (Auto) 1.6 0.0-7.0 % Basophils (%) (Auto) 1.2 0.0-2.0 % Neutrophils # (Auto) 6.1 1.6-8.6 10 ^3/uL Lymphocytes # (Auto) 1.9 0.4-5.4 10 ^3/uL Monocytes # (Auto) 0.8 0-1.3 10 ^3/uL Eosinophils # (Auto) 0.1 0-0.8 10 ^3/uL Basophils # (Auto) 0.1 0-0.2 10 ^3/uL Nucleated Red Blood Cells 0.0 % Sodium Level Pending Potassium Level Pending Chloride Level Pending Carbon Dioxide Level Pending Anion Gap Pending Blood Urea Nitrogen Pending Creatinine Pending Glomerular Filtration Rate Calc Pending BUN/Creatinine Ratio Pending Serum Glucose Pending Calcium Level Pending Current Medications Medications (Trade) Dose Ordered Sig/Jony Route Start Time Stop Time Status Last Admin Acetaminophen/ Hydrocodone Bitart ([place] 10/325MG Tab) 1 tab ONCE ONCE PO 06/03/25 14:45 06/03/25 14:49 DC 06/03/25 15:07 Azithromycin 250 ml @ 125 mls/hr ONCE ONCE IV 06/03/25 14:45 06/03/25 16:44 06/03/25 15:24 Ceftriaxone Sodium 50 ml @ 100 mls/hr ONCE ONCE IV 06/03/25 14:45 06/03/25 15:14 DC 06/03/25 15:07 X-Ray, Labs, Meds, VS Comment The patient was re-evaluated. VS: Tachypneic, O2Sat 90% on room air. The patient will be admitted for further assessment and management. Time of 1ST Reevaluation: 15:08 Reevaluation 1ST: Unchanged Patient Education/Counseling: Diagnosis, Treatment, Prognosis, Need For Follow Up Family Education/Counseling: No Family Present SEPSIS Sepsis Screen Date sepsis recognized/suspect: Jun 03, 2025 Time Sepsis recognized/suspect: 8 Recent Procedure: No On Antibiotic Therapy: Yes Respiratory Rate >20: Yes Heart Rate >90: Yes Temp<36 C (96.8 F) or >38.3 C: No SBP <90 or MAP <65 mmHG: No New Acute Mental Status Change: No Is the patient on CPAP, BIPAP,: No Physician Orders Basic Metabolic Panel (06/03/25 14:34) Chest Two Views Routine (06/03/25 14:34) Azithromycin 500mg/ 250ml (Zithromax 50 (06/03/25 14:45) Vital Signs Date Time Temp Pulse Resp B/P (MAP) Pulse Ox O2 Delivery O2 Flow Rate FiO2 06/03/25 15:10 98.0 117 18 123/73 (90) 91 98.0 06/03/25 15:10 117 18 91 Room Air* 0 21 06/03/25 13:58 97.7 117 24 137/71 91 97.7 Laboratory Tests Test 06/03/25 15:11 White Blood Count 9.0 10^3/uL (4.4-10.8) Medications Medications Dose Ordered Sig/Jony Route Start Time Stop Time Status Last Admin Dose Admin Acetaminophen/ Hydrocodone Bitart 1 tab ONCE ONCE PO 06/03/25 14:45 06/03/25 14:49 DC 06/03/25 15:07 Azithromycin 250 ml @ 125 mls/hr ONCE ONCE IV 06/03/25 14:45 06/03/25 16:44 06/03/25 15:24 Ceftriaxone Sodium 50 ml @ 100 mls/hr ONCE ONCE IV 06/03/25 14:45 06/03/25 15:14 DC 06/03/25 15:07 Departure 1 Departure Time of Disposition: 15:32 Impression: Primary Impression: COPD with acute exacerbation Additional Impressions: Community acquired bilateral lower lobe pneumonia Asthma Disposition: ADMITTED INPATIENT Admit to: Med Surg Condition: Good Comments Goals of care discussed with the patient > 35 min. Discussed plan of care with Dr. Vega Code status: Full code PCP: Plan discussed with: Patient, the patient agrees with the admission plan. Critical Care Note Critical Care Time?: No Stability Stability form required: No Stable for transfer: N/A Unstable for transfer: N/A Heart Score Heart Score: Heart Score Response (Comments) Value History N/A 0 EKG N/A 0 Age N/A 0 Risk Factors N/A 0 Troponin N/A 0 Total 0 JOSE MARIA STARKEY RESIDENT Jun 03, 2025 14:45
[2025-06-03] MEDS: HYDROcodone-ACET 10/325MG TAB PO ONE (15:07)
[2025-06-03 15:10] VITALS: PULSE 117; RESP 18; O2SAT 91
--- NOTE | 2025-06-03 15:11 | DVH ---
EXAM: XY CHEST TWO VIEWS ROUTINE CLINICAL HISTORY: SOB TECHNIQUE: Frontal and lateral views of the chest WID: COMPARISON: XY CHEST TWO VIEWS ROUTINE on DOS: 06/02/25 FINDINGS: Lines and tubes: None Chest: The heart size and pulmonary vasculature is within normal limits. No pleural effusion, pneumothorax, or consolidation. Linear left basilar scarring. The osseous structures are grossly intact. IMPRESSION: 1. No acute cardiopulmonary abnormality.
[2025-06-03] MEDS: AZITHROMYCIN 500MG/ 250ML 250 ML IV ONE (15:24)
[2025-06-03 15:26] LABS: Hematocrit 50.0 % (41.0-53.0); Hemoglobin 17.3 g/dL (13.5-17.5); Mean Corpuscular Hemoglobin 31.3 pg (28.0-32.0); Mean Corpuscular Volume 90.4 fL (80.0-100.0); Nucleated Red Blood Cells % 0.0 %
[2025-06-03 15:38] LABS: Chloride 105 mmol/L (98-107); Potassium 4.4 mmol/L (3.5-5.1); Sodium 138 mmol/L (136-145)
[2025-06-03 15:39] LABS: Anion Gap 11 (5-15); Calcium 9.6 mg/dL (8.7-10.4); Carbon Dioxide 22 mmol/L (20-31)
[2025-06-03 15:44] LABS: BUN/Creatinine Ratio 12.5 (10.0-20.0); Blood Urea Nitrogen 13 mg/dL (9-23); Glucose 178 mg/dL (74-106)
[2025-06-03] MEDS: IPRATROPIUM BROM 0.5 MG/2.5ML INH SOL NEB ONE (20:08)
[2025-06-03] MEDS ORDERED: ONDANSETRON HCL 4 MG/2 ML VIAL IV PRN (21:45)
[2025-06-03] MEDS ORDERED: DEXTROSE (50%) 50ML SYRG IV PRN (21:45)
[2025-06-03 22:00] VITALS: O2SAT 95
[2025-06-03] MEDS: ATORVASTATIN 20 MG TAB PO SCH (22:00)
[2025-06-03] MEDS: ACCU-CHEK COMFORT CURVE STRIP VI SCH (22:05)
[2025-06-03] MEDS: lamoTRIgine 100 MG TAB PO SCH (22:20)
[2025-06-03] MEDS: InsuLIN REG 1unit/0.01ml Soln (100units/ml) SC SCH (22:20)
[2025-06-03 23:00] VITALS: BP 123/73; PULSE 117; RESP 18; TEMP 98; O2SAT 95
[2025-06-03] MEDS: ACETAMINOPHEN 325 MG TAB PO PRN (23:47)
[2025-06-04] VITALS (10 sets, daily range): BP systolic 98–123; BP diastolic 46–93; PULSE 84–94; RESP 12–20; TEMP 97.9–98.2; O2SAT 91–99
--- NOTE | 2025-06-04 00:28 | DVHHP2 ---
History of Present Illness Reason for Visit: Shortness for breath History of Present Illness 60-year-old male presents for evaluation of shortness for breath. Patient reports a three day history of shortness for breath with associated productive cough with yellow/green sputum. Denies chest pain or palpitations. He also reports occasional chills. Past Medical History COPD, asthma, diabetes mellitus, hypertension, dyslipidemia Past Surgical History Denies Family History Noncontributory Smoke: No ALCOHOL: occassional Drugs: None Lives: with Family Review of Systems Review of Systems Review of systems are currently negative otherwise addressed in HPI. Allergies: Coded Allergies: Baclofen (Verified Allergy, Severe, shortness of breath , 03/18/25) Patient has difficulty breathing Medications Current Medications Medications Dose Ordered Sig/Jony Route Start Time Stop Time Status Last Admin Dose Admin Albuterol 2.5 mg Q6HPRN PRN NEB 06/03/25 21:45 Azithromycin 250 ml @ 125 mls/hr DAILY IV 06/04/25 10:00 Losartan Potassium 50 mg DAILY PO 06/04/25 10:00 Atorvastatin Calcium 20 mg HS PO 06/03/25 22:00 Diagnostic Test (Pha) 1 strip ACHS 06/03/25 22:00 06/03/25 22:11 1 STRIP Insulin Human Regular ACHS SC 06/03/25 22:00 06/03/25 22:20 3 UNITS Dextrose 50 ml UD PRN IV 06/03/25 21:45 Ondansetron HCl 4 mg Q4HP PRN IV 06/03/25 21:45 Acetaminophen 650 mg Q6HP PRN PO 06/03/25 21:45 06/03/25 23:47 650 MG Lamotrigine 150 mg HS PO 06/03/25 22:00 06/03/25 22:20 150 MG Exam Vital Signs Vital Signs Date Time Temp Pulse Resp B/P (MAP) Pulse Ox O2 Delivery O2 Flow Rate FiO2 06/03/25 23:00 98.0 117 18 123/73 95 2.0 28 98.0 06/03/25 22:00 Nasal Cannula Exam Gen: 52-year-old male in mild distress, morbidly obese Skin: Warm, dry, normal color and texture, no rash. HEENT: Normocephalic atraumatic, mucous membranes moist and pink. Neck: Cervical and supraclavicular nodes normal without enlargement, trachea is midline, thyroid gland is normal without masses. Pulmonary: Clear to auscultation and percussion bilaterally. Cardiac: Regular rate and rhythm. No murmur Abdomen: Soft, nontender, nondistended, bowel sounds present all 4 quadrants, no guarding, no rigidity, no organomegaly. Extremities: No cyanosis, clubbing, no edema Neuro: Cranial nerves II through XII grossly intact, normal affect and speech, no focal motor deficits. Labs/Xrays ORDERING PHYSICIAN: JOSE MARIA STARKEY RESIDENT PROCEDURE(s): CXR2 - CHEST TWO VIEWS ROUTINE REASON: SOB ORDER NUMBER(s): [id number], ACCESSION NUMBER(s): [id number] EXAM: XY CHEST TWO VIEWS ROUTINE CLINICAL HISTORY: SOB TECHNIQUE: Frontal and lateral views of the chest WID: COMPARISON: XY CHEST TWO VIEWS ROUTINE on DOS: 06/02/25 FINDINGS: Lines and tubes: None Chest: The heart size and pulmonary vasculature is within normal limits. No pleural effusion, pneumothorax, or consolidation. Linear left basilar scarring. The osseous structures are grossly intact. IMPRESSION: 1. No acute cardiopulmonary abnormality. Labs Test 06/03/25 22:09 06/03/25 15:11 Range/Units POC Glucose 161 H 70-106 mg/dl White Blood Count 9.0 4.4-10.8 10^3/uL Red Blood Count 5.53 4.5-5.90 10^6/uL Hemoglobin 17.3 13.5-17.5 g/dL Hematocrit 50.0 41.0-53.0 % Mean Corpuscular Volume 90.4 80.0-100.0 fL Mean Corpuscular Hemoglobin 31.3 28.0-32.0 pg Mean Corpuscular Hemoglobin Concent 34.6 32.0-36.0 g/dL Red Cell Distribution Width 14.6 H 11.8-14.3 % Platelet Count 281 140-450 10^3/uL Mean Platelet Volume 8.1 6.9-10.8 fL Neutrophils (%) (Auto) 67.7 37.0-80.0 % Lymphocytes (%) (Auto) 21.1 10.0-50.0 % Monocytes (%) (Auto) 8.4 0.0-12.0 % Eosinophils (%) (Auto) 1.6 0.0-7.0 % Basophils (%) (Auto) 1.2 0.0-2.0 % Neutrophils # (Auto) 6.1 1.6-8.6 10 ^3/uL Lymphocytes # (Auto) 1.9 0.4-5.4 10 ^3/uL Monocytes # (Auto) 0.8 0-1.3 10 ^3/uL Eosinophils # (Auto) 0.1 0-0.8 10 ^3/uL Basophils # (Auto) 0.1 0-0.2 10 ^3/uL Nucleated Red Blood Cells 0.0 % Sodium Level 138 136-145 mmol/L Potassium Level 4.4 3.5-5.1 mmol/L Chloride Level 105 98-107 mmol/L Carbon Dioxide Level 22 20-31 mmol/L Anion Gap 11 5-15 Blood Urea Nitrogen 13 9-23 mg/dL Creatinine 1.04 0.700-1.30 mg/dL Glomerular Filtration Rate Calc 83 >90 mL/min BUN/Creatinine Ratio 12.5 10.0-20.0 Serum Glucose 178 H 74-106 mg/dL Calcium Level 9.6 8.7-10.4 mg/dL SEPSIS Sepsis Screen Date sepsis recognized/suspect: Jun 03, 2025 Time Sepsis recognized/suspect: 8 Recent Procedure: No On Antibiotic Therapy: Yes Respiratory Rate >20: Yes Heart Rate >90: Yes Temp<36 C (96.8 F) or >38.3 C: No SBP <90 or MAP <65 mmHG: No New Acute Mental Status Change: No Is the patient on CPAP, BIPAP,: No Physician Orders Admit (06/03/25 20:00) Albuterol Medneb (Ventolin Medneb) (06/03/25 21:45) Azithromycin 500mg/ 250ml (Zithromax 50 (06/04/25 10:00) Losartan Tablet (Cozaar Tablet) (06/04/25 10:00) Atorvastatin (Lipitor) (06/03/25 22:00) Basic Metabolic Panel (06/04/25 04:00) Glucose Blood (Accu-Chek Comfort Curve T (06/03/25 22:00) Insulin R (Human) (Insulin R) (06/03/25 22:00) Dextrose 50% Syringe (06/03/25 21:45) Ondansetron Hcl (Zofran) (06/03/25 21:45) Complete Blood Count (06/04/25 04:00) Cardiac Diet-2gna,Lofat,Lochol (06/04/25 Breakfast) Condition: Stable (06/03/25 21:34) Acetaminophen Tablet (Tylenol Tablet) (06/03/25 21:45) Bedrest With Bathroom Privileg (06/03/25 21:34) Lamotrigine Tablet (Lamictal Tablet) (06/03/25 22:00) Troponin-I Hs (06/04/25 00:03) Vital Signs Date Time Temp Pulse Resp B/P (MAP) Pulse Ox O2 Delivery O2 Flow Rate FiO2 06/03/25 23:00 98.0 117 18 123/73 95 2.0 28 98.0 06/03/25 22:18 97.9 94 18 139/80 (99) 97 97.9 06/03/25 22:00 95 Nasal Cannula 2.0 06/03/25 22:00 95 Nasal Cannula* 2 28 Laboratory Tests Test 06/03/25 15:11 White Blood Count 9.0 10^3/uL (4.4-10.8) Medications Medications Dose Ordered Sig/Jony Route Start Time Stop Time Status Last Admin Dose Admin Acetaminophen 650 mg Q6HP PRN PO 06/03/25 21:45 06/03/25 23:47 650 MG Acetaminophen/ Hydrocodone Bitart 1 tab ONCE ONCE PO 06/03/25 14:45 06/03/25 14:49 DC 06/03/25 15:07 1 TAB Azithromycin 250 ml @ 125 mls/hr ONCE ONCE IV 06/03/25 14:45 06/03/25 16:44 DC 06/03/25 15:24 125 MLS/HR Ceftriaxone Sodium 50 ml @ 100 mls/hr ONCE ONCE IV 06/03/25 14:45 06/03/25 15:14 DC 06/03/25 15:07 100 MLS/HR Diagnostic Test (Pha) 1 strip ACHS 06/03/25 22:00 06/03/25 22:11 1 STRIP Insulin Human Regular ACHS SC 06/03/25 22:00 06/03/25 22:20 3 UNITS Lamotrigine 150 mg HS PO 06/03/25 22:00 06/03/25 22:20 150 MG Assessment/Plan Assessment/Plan Assessment Acute on chronic respiratory failure Pneumonitis Diabetes mellitus COPD Plan Admit the patient to Med surge to the hospitalist Azithromycin Med nebs Resume home medications Continue treatment per orders. Plan discussed with: Patient My Orders Orders - NAN SEBASTIAN Procedure Category Date Status Time Admit ADMIT 06/03/25 Transmitted 20:00 Albuterol Medneb PHA 06/03/25 In Process (Ventolin Medneb) 21:45 Azithromycin 500mg/ PHA 06/04/25 In Process 250ml (Zithromax 50 10:00 Losartan Tablet PHA 06/04/25 In Process (Cozaar Tablet) 10:00 Atorvastatin (Lipitor) PHA 06/03/25 In Process 22:00 Basic Metabolic Panel LAB 06/04/25 Transmitted 04:00 Glucose Blood PHA 06/03/25 In Process (Accu-Chek Comfort 22:00 Insulin R (Human) PHA 06/03/25 In Process (Insulin R) 22:00 Dextrose 50% Syringe PHA 06/03/25 In Process 21:45 Ondansetron Hcl PHA 06/03/25 In Process (Zofran) 21:45 Complete Blood Count LAB 06/04/25 Transmitted 04:00 Cardiac DIET 06/04/25 Transmitted Diet-2gna,Lofat,Lochol Breakfast Condition: Stable DREW 06/03/25 In Process 21:34 Acetaminophen Tablet PHA 06/03/25 In Process (Tylenol Tablet) 21:45 Bedrest With Bathroom DREW 06/03/25 In Process Privileg 21:34 Lamotrigine Tablet PHA 06/03/25 In Process (Lamictal Tablet) 22:00 Troponin-I Hs LAB 06/04/25 Transmitted 00:03 Date of Service: Jun 03, 2025 Billing Provider: NAN SEBASTIAN Common Visit Codes: [id number] INP/OBS CARE (HIGH) NAN SEBASTIAN Jun 04, 2025 00:28
[2025-06-04 00:37] LABS: Hematocrit 47.0 % (41.0-53.0); Hemoglobin 16.1 g/dL (13.5-17.5); Mean Corpuscular Hemoglobin 31.2 pg (28.0-32.0); Mean Corpuscular Volume 90.9 fL (80.0-100.0); Nucleated Red Blood Cells % 0.1 %
[2025-06-04 00:45] LABS: Chloride 105 mmol/L (98-107); Potassium 4.0 mmol/L (3.5-5.1); Sodium 141 mmol/L (136-145)
[2025-06-04 00:46] LABS: Anion Gap 10 (5-15); Calcium 8.7 mg/dL (8.7-10.4); Carbon Dioxide 26 mmol/L (20-31)
[2025-06-04 00:51] LABS: Glucose 215 mg/dL (74-106)
[2025-06-04 01:37] LABS: BUN/Creatinine Ratio 18.4 (10.0-20.0); Blood Urea Nitrogen 19 mg/dL (9-23)
[2025-06-04 01:58] LABS: COVID19 ANTIGEN SOFIA FIA NEGATIVE (NEGATIVE)
[2025-06-04] MEDS: HYDROcodone-ACET 5/325MG TAB PO PRN (03:19)
[2025-06-04] MEDS: ALBUTEROL SULF 2.5 MG/0.5ML(0.5%) NEB SOLN NEB PRN (07:26)
[2025-06-04] MEDS: LOSARTAN POTASSIUM 50 MG TAB PO SCH (09:36)
[2025-06-04] MEDS ORDERED: lamoTRIgine 100 MG TAB PO SCH (10:00)
[2025-06-04] MEDS: AZITHROMYCIN 500MG/ 250ML 250 ML IV SCH (10:09)
--- NOTE | 2025-06-04 12:10 | DVHPN2 ---
Subjective Patient was states that his shortness of breath has improved. Reviewed: Care Plan, H&P, Labs, Medications Changes from previous H/P or p: No Changes General: Per HPI Objective Vitals Vital Signs Date Time Temp Pulse Resp B/P (MAP) Pulse Ox O2 Delivery O2 Flow Rate FiO2 06/04/25 09:36 122/77 06/04/25 08:05 98.0 91 20 93 98.0 06/04/25 07:36 Nasal Cannula* 2 28 General Appearance: Alert, Oriented X3, Cooperative, No acute distress HEENT: Atraumatic, PERRLA Lungs: Other (Decreased breath sounds bilaterally) Cardiovascular: Normal S1, Normal S2 Abdomen: Normal bowel sounds, Soft, No tenderness, No hepatospenomegaly Genitourinary: No Apparent Abnormalities Musculoskeletal: Normal sensory function, Normal motor function Neuro: Normal gait, Normal speech Skin: Dry, Intact Psych/Mental Status: Mental status NL, Mood NL Medications Current Medications Medications Dose Ordered Sig/Jony Route Start Time Stop Time Status Last Admin Dose Admin Albuterol 2.5 mg Q6HPRN PRN NEB 06/03/25 21:45 06/04/25 07:26 2.5 MG Azithromycin 250 ml @ 125 mls/hr DAILY IV 06/04/25 10:00 06/04/25 10:09 125 MLS/HR Losartan Potassium 50 mg DAILY PO 06/04/25 10:00 06/04/25 09:36 50 MG Atorvastatin Calcium 20 mg HS PO 06/03/25 22:00 Diagnostic Test (Pha) 1 strip ACHS 06/03/25 22:00 06/03/25 22:11 1 STRIP Insulin Human Regular ACHS SC 06/03/25 22:00 06/04/25 06:30 4 UNITS Dextrose 50 ml UD PRN IV 06/03/25 21:45 Ondansetron HCl 4 mg Q4HP PRN IV 06/03/25 21:45 Acetaminophen 650 mg Q6HP PRN PO 06/03/25 21:45 06/03/25 23:47 650 MG Lamotrigine 150 mg HS PO 06/03/25 22:00 06/03/25 22:20 150 MG Acetaminophen/ Hydrocodone Bitart 1 tab Q6HPRN PRN PO 06/04/25 03:00 06/04/25 09:35 1 TAB Laboratory Results Laboratory Tests 06/04/25 00:24 Chemistry Test 06/03/25 15:11 06/04/25 00:24 Calcium Level 9.6 mg/dL (8.7-10.4) 8.7 mg/dL (8.7-10.4) Coagulation Test 06/04/25 00:24 D-Dimer, Quantitative 0.31 mg/L FEU (0.0-0.49) Cardiac Markers Test 06/04/25 00:24 B-Type Natriuretic Peptide 7.26 pg/mL (0-100) Labs and/or images reviewed: Labs reviewed by me, Image(s) reviewed by me Assessment/Plan Assessment/Plan Impression: -acute hypoxic respiratory failure -COPD with exacerbation -rule out community-acquired pneumonia, Gram-positive/Gram-negative etiology -diabetes mellitus -morbid obesity -obstructive sleep apnea Plan: -wean oxygen to keep saturation greater than 91% -regular insulin sliding scale -check hemoglobin A1c -continue current antibiotic therapy -add Pulmicort b.i.d., prednisone 20 mg p.o. daily -CPAP at night -reassess for discharge in a.m. Total time spent with patient discussing and formulating plan of care: 35 minutes. This medical document was created using an electronic medical record system with [employer] dictation system. Although this document has been carefully reviewed, there may still be some phonetic and typographical errors. These areas are purely typographical due to imperfections of the software programs, and do not reflect any compromise in the patient's medical care. Plan discussed with: Patient, Other (RN) Date of Service: Jun 04, 2025 Billing Provider: ARMANDO JIMENEZ NP Common Visit Codes: [id number] INP/OBS CARE(HIGH) ARMANDO JIMENEZ NP Jun 04, 2025 12:10
[2025-06-04] MEDS: predniSONE 20 MG TAB PO SCH (12:33)
[2025-06-04] MEDS: BUDESONIDE (INHALATION) 0.5 MG/2 ML NEB NEB SCH (18:27)
[2025-06-05 01:00] VITALS: BP 128/77; PULSE 81; RESP 18; TEMP 98.4; O2SAT 96
[2025-06-05 05:00] VITALS: BP 124/72; PULSE 80; RESP 18; TEMP 98.6; O2SAT 99
[2025-06-05 10:00] VITALS: O2SAT 97
--- NOTE | 2025-06-05 13:43 | DVHDS2 ---
Discharge Summary Date of Admission Jun 03, 2025 at 20:00 Date of Discharge: Jun 05, 2025 Admitting Diagnosis Acute on chronic respiratory failure Labs/Diagnostic Data: Laboratory Results Test 06/05/25 11:50 06/04/25 01:03 06/04/25 00:24 POC Glucose 203 mg/dl (70-106) SARS-CoV-2 Antigen (Rapid) Negative (NEGATIVE) White Blood Count 7.3 10^3/uL (4.4-10.8) Red Blood Count 5.17 10^6/uL (4.5-5.90) Hemoglobin 16.1 g/dL (13.5-17.5) Hematocrit 47.0 % (41.0-53.0) Mean Corpuscular Volume 90.9 fL (80.0-100.0) Mean Corpuscular Hemoglobin 31.2 pg (28.0-32.0) Mean Corpuscular Hemoglobin Concent 34.3 g/dL (32.0-36.0) Red Cell Distribution Width 14.4 % (11.8-14.3) Platelet Count 235 10^3/uL (140-450) Mean Platelet Volume 8.1 fL (6.9-10.8) Neutrophils (%) (Auto) 59.1 % (37.0-80.0) Lymphocytes (%) (Auto) 27.0 % (10.0-50.0) Monocytes (%) (Auto) 10.5 % (0.0-12.0) Eosinophils (%) (Auto) 2.6 % (0.0-7.0) Basophils (%) (Auto) 0.8 % (0.0-2.0) Neutrophils # (Auto) 4.3 10 ^3/uL (1.6-8.6) Lymphocytes # (Auto) 2.0 10 ^3/uL (0.4-5.4) Monocytes # (Auto) 0.8 10 ^3/uL (0-1.3) Eosinophils # (Auto) 0.2 10 ^3/uL (0-0.8) Basophils # (Auto) 0.1 10 ^3/uL (0-0.2) Nucleated Red Blood Cells 0.1 % D-Dimer, Quantitative 0.31 mg/L FEU (0.0-0.49) Sodium Level 141 mmol/L (136-145) Potassium Level 4.0 mmol/L (3.5-5.1) Chloride Level 105 mmol/L (98-107) Carbon Dioxide Level 26 mmol/L (20-31) Anion Gap 10 (5-15) Blood Urea Nitrogen 19 mg/dL (9-23) Creatinine 1.03 mg/dL (0.700-1.30) Glomerular Filtration Rate Calc 84 mL/min (>90) BUN/Creatinine Ratio 18.4 (10.0-20.0) Serum Glucose 215 mg/dL (74-106) Hemoglobin A1c 8.7 % A1C (<5.7) Calcium Level 8.7 mg/dL (8.7-10.4) Troponin I High Sensitivity 3 ng/L (</=54) B-Type Natriuretic Peptide 7.26 pg/mL (0-100) Other Laboratory Tests 06/04/25 00:24 Brief Hx & Hospital Course: History of Present Illness 60-year-old male presents for evaluation of shortness for breath. Patient reports a three day history of shortness for breath with associated productive cough with yellow/green sputum. Denies chest pain or palpitations. He also reports occasional chills. Course of hospitalization: Patient was treated with empiric antibiotic therapy, bronchodilators. Patient's respiratory status improved. He has been weaned off of oxygen. Patient will be discharged home and instructed to follow up with his PCP in 1-2 weeks. He will be continued on antibiotic therapy with in his azithromycin unit Dosepak. He is instructed to continue his home CPAP and all previous home medications. Physical examination General: Alert and Oriented x3. No acute distress. Well-nourished. Eyes: EOMI. Anicteric. HENT: Moist mucous membranes. Lungs: Clear to auscultation bilaterally. No accessory muscle use. Cardiovascular: Regular rate and rhythm. No murmur. No JVD. Abdomen: Soft, non-tender and non-distended. No palpable masses. Extremities: No edema. Non-tender. Skin: No rashes or lesions. Warm. Neurologic: No focal neurological deficits. CN II-XII grossly intact, but not individually tested. Psychiatric: Cooperative. Appropriate mood and affect. Total time spent with patient discussing and formulating plan of care: 35 minutes. This medical document was created using an electronic medical record system with [employer] computerized dictation system. Although this document has been carefully reviewed, there may still be some phonetic and typographical errors. These areas are purely typographical due to imperfections of the software programs, and do not reflect any compromise in the patient's medical care. Condition at Discharge: Fair Final Diagnosis/Problems List Community acquired PNA, gram positive gram negative etiology -acute hypoxic respiratory failure -COPD with exacerbation -rule out community-acquired pneumonia, Gram-positive/Gram-negative etiology -diabetes mellitus -morbid obesity -obstructive sleep apnea Discharge Disposition: Home Discharge Instruct/Medications Diet: Consistent carbohydrate, Cardiac 2g Na,low cholest Activity: No Restrictions, As Tolerated Follow Up/Referral: PCP in 1-2 weeks Medications: Azithromycin dose pack, use as directed Continue home medications Scheduled Acetaminophen (Tylenol 8 Hour Arthritis), 650 MG PO TID Atorvastatin Calcium (Atorvastatin Calcium), 1 TAB PO DAILY, (Reported) Azithromycin (Azithromycin), 1 TAB PO DAILY Azithromycin (Azithromycin), 500 MG PO DAILY Clindamycin Hcl (Clindamycin Hcl), 1 CAP PO BID Empagliflozin (Jardiance), 1 TAB PO DAILY, (Reported) Glimepiride (Glimepiride), 1 TAB PO DAILY, (Reported) Ibuprofen (Ibuprofen), 1 TAB PO TID Ibuprofen (Ibuprofen), 1 TAB PO TID Losartan Potassium (Losartan Potassium), 1 TAB PO DAILY, (Reported) Naproxen (Naproxen), 500 MG PO BID Naproxen (Naproxen), 500 MG PO BIDPC Prednisone (Prednisone), 60 MG PO DAILY Prednisone (Prednisone), 40 MG PO DAILY Promethazine-Dm (Promethazine Dm 6.25-15 mg/5Ml), 10 OCHOA PO TID Semaglutide (Ozempic), 2 MG SC QWEEKLY, (Reported) Sitagliptin Phosphate (Januvia), 1 TAB PO DAILY, (Reported) Tiotropium [place]-Olodaterol (Stiolto Respimat 2.5-2.5 Mcg/Act), 2 PUFF PO DAILY, (Reported) Scheduled PRN Methocarbamol (Methocarbamol), 500 MG PO Q8HP PRN Trazodone Hcl (Trazodone Hcl), 2 TAB PO QHSP PRN for FOR INSOMNIA, (Reported) Miscellaneous Medications Lamotrigine (Lamotrigine), 1 TAB PO, (Reported) Patients Own Medication (Patients Own Medication), (Reported) Ropinirole Hydrochloride (Ropinirole Hcl), 1 TAB PO, (Reported) 36 Discharge Statement: "Patient was advised to return to the ER or call 911 if any headaches, dizziness, shortness of breath, chest pain, abdominal pain, bleeding, fevers, or worsening of medical condition. Patient was counseled about treatment plan, medications, possible side effects, patientverbalized understanding. All questions were answered to the best of my ability. This discharge took greater then 30 minutes in planning, reviewing documentation, counseling the patient, and discussing with other team members." ASSESSMENT ASSESSMENT Assessment Community acquired PNA, gram positive gram negative etiology Date of Service: Jun 05, 2025 Billing Provider: ARMANDO JIMENEZ NP Common Visit Codes: 93370-FHP/OBS DISCH DAY >30min ARMANDO JIMENEZ NP Jun 05, 2025 13:43
[2025-06-05 14:55] VITALS: BP 147/70; TEMP 37
[2025-06-05] MEDS ORDERED: AZITTAB PO (16:44)
== END 2025-06-05 15:30 | disposition home or self-care (01) | DRG 177 ==
LOC: ER 13:54 → OVERFLOW 20:00 → WEST WING 06-04 15:51
PROVIDERS: ADMIT Nurse Practitioner Acute Care; ATTEND Nurse Practitioner Acute Care
DX: J15.69 Pneumonia due to other Gram-negative bacteria (principal); J96.21 Acute and chronic respiratory failure with hypoxia; J44.1 Chronic obstructive pulmonary disease with (acute) exacerbation; J44.0 Chronic obstructive pulmonary disease with (acute) lower respiratory infection; Z68.42 Body mass index [BMI] 45.0-49.9, adult; J98.4 Other disorders of lung; G47.33 Obstructive sleep apnea (adult) (pediatric); J15.9 Unspecified bacterial pneumonia; I10 Essential (primary) hypertension; E11.9 Type 2 diabetes mellitus without complications; E66.01 Morbid (severe) obesity due to excess calories; E78.5 Hyperlipidemia, unspecified; F41.9 Anxiety disorder, unspecified; Z79.899 Other long term (current) drug therapy
CPT/HCPCS: 36415; 71046; 80048; 82962; 83036; 83880; 84484; 85025; 85379; 87426; 94640; G0378; J1815